=== PATIENT | male | born 1965 | race African-American/Black ===

== ENCOUNTER 2017-12-07 06:16 | Inpatient (IN) | payer OTHER ==
[2017-12-04 16:53] VITALS: BMI 31.4
[2017-12-07] MEDS ORDERED: THROMBIN (BOVINE) 5,000 UNIT VIAL TP ONE (07:15)
[2017-12-07] MEDS ORDERED: BENZOIN/ALOE VERA/STORAX/TOLU 58 ML BOTTLE ONE (07:15)
[2017-12-07] MEDS ORDERED: HEPARIN NA (PORCINE) 5,000 UNITS/ML 1ML VIAL ONE (07:15)
[2017-12-07] MEDS ORDERED: SUCCINYLCHOLINE CHLORIDE 200 MG/10 ML VIAL ONE (07:23)
[2017-12-07] MEDS ORDERED: PROPOFOL 20 ML ONE ×11 (07:23→11:46)
[2017-12-07] MEDS ORDERED: MIDAZOLAM HCL 2 MG/2 ML SINGLE DOSE VIAL ONE ×2 (07:23)
[2017-12-07] MEDS ORDERED: morphine SULFATE/Preservative Free 0.5 MG/ML (1cc Syringe) ONE (07:44)
[2017-12-07] MEDS ORDERED: BUPIVACAINE HCL/PF 0.5% (5MG/ML) 10 ML VIAL ONE (07:49)
[2017-12-07] MEDS ORDERED: VANCOMYCIN 1,000 MG VIAL (RESTRICTED TO ID ONLY) ONE (07:50)
[2017-12-07] MEDS ORDERED: ceFAZolin SODIUM 1 GM VIAL IVPB ONE (08:20)
[2017-12-07] MEDS ORDERED: ePHEDrine SULFATE 50 MG/1 ML AMPULE ONE ×3 (08:23→08:55)
[2017-12-07] MEDS ORDERED: VANCOMYCIN 1,000 MG VIAL (RESTRICTED TO ID ONLY) IVPB ONE (08:30)
[2017-12-07] MEDS ORDERED: ceFAZolin SODIUM 1 GM VIAL ONE ×2 (08:53→11:53)
[2017-12-07] MEDS ORDERED: DEXAMETHASONE SOD PHOSPHATE 4 MG/1 ML VIAL ONE (08:59)
[2017-12-07] MEDS ORDERED: BUPIVACAINE HCL/PF 0.25% (2.5MG/ML) 10 ML VIAL ONE (09:11)
[2017-12-07] MEDS ORDERED: BUPIVACAINE LIPOSOME/PF (EXPAREL) 266 MG/20 ML VIAL NR ONE ×3 (09:30→12:19)
[2017-12-07] MEDS ORDERED: TRANEXAMIC ACID 1000 MG/10 ML VIAL ONE (09:53)
[2017-12-07] MEDS ORDERED: BUPIVACAINE HCL/PF 0.25% (2.5MG/ML) 10 ML VIAL IJ ONE ×3 (09:56→12:19)
[2017-12-07] MEDS ORDERED: ONDANSETRON 4 MG/2 ML VIAL IVPUSH PRN ×2 (12:04→13:13)
[2017-12-07] MEDS ORDERED: oxyCODONE HCL 5 MG TABLET PO PRN (12:12)
[2017-12-07] MEDS ORDERED: ACETAMINOPHEN 325 MG TABLET (FP) PO SCH (12:15)
--- NOTE | 2017-12-07 13:20 | PN ---
Progress Note (short form) - Note Progress Note: 52M s/p L4-S1 laminectomies; L4-L5, & L5-S1 PLIF, L4-S1 PISF POD #0. -Pain control: per anaesthesia team; recommend NETWORK ENGINEER ADMINISTRATOR; No NSAID's. -DVT PPx: - Mechanical only: ALFRED's, SCD's. -Incentive spirometry q15min. -PT/OT/Rehab, OOB. -WBAT B/L LE. -q4h B/L LE NV checks. -Post-op antibiotics x 2 doses. -NPO until flatus. -f/u AM labs. -f/u drain output. -d/c Alan catheter when patient ambulating comfortably. -Care per medical hospitalist team. -Discharge planning: f/u 7-10 days after discharge at [facility] [place] office; call for appointment; ; no bending, lifting more than 5lbs , or twisting x 6 months. -Will follow. Naga Beck MD (Orthopaedic Surgery).
--- NOTE | 2017-12-07 13:23 | OP ---
Operative Note - Note: Operative Date: 12/07/17 Pre-Operative Diagnosis: Lumbar spinal stenosis Operation: 1. L4-S1 laminectomies. 2. L4-L5, & L5-S1 PLIF. 3. L4-S1 PISF. 4. Bone Autograft. 5. Bone Allograft Post-Operative Diagnosis: Same as Pre-op Surgeon: Naga Beck Bale Stacker: Tony Beck Anesthesiologist/POWER SHEAR OPERATOR: Chante Jerez Anesthesia: General Specimens Removed: L4-5, L5-S1 disc Estimated Blood Loss (mls): 900 Drains & Tubes with Location: 1 x superficial hemovac Blood Volume Replaced (mls): 475 (cell saver) Fluid Volume Replaced (mls): 1,400 (crystalloid) Operative Report Dictated: Yes
[2017-12-07] MEDS ORDERED: ACETAMINOPHEN INJECTION 100 ML IVPB ONE (14:34)
[2017-12-07] MEDS: LACTATED RINGERS SOLUTION 1,000 ML IV SCH ×2 (14:45→17:09)
[2017-12-07] MEDS: ACETAMINOPHEN 1000 MG/100 ML VIAL (NON FORMULARY) IVPB SCH ×2 (14:55→23:02)
--- NOTE | 2017-12-07 16:33 | CONSULT ---
Consultation: REQUESTING PROVIDER: CONSULT REQUEST: We have been asked to medically evaluate this patient for ICU. HISTORY OF PRESENT ILLNESS: 52 y/o M with PMH HTN, anemia, who is admitted to ICU s/p 1. L4-S1 laminectomies. 2. L4-L5, & L5-S1 PLIF. 3. L4-S1 PISF. 4. Bone Autograft. 5. Bone Allograft for lumbar spinal stenosis. As per pt, over the past 10 yrs, he has had intermittent lumbar pain a/w sharp, radiating pain into the lateral aspect of his lower extremities. This past yr, his condition worsened, as he was "unable to walk a block without experiencing pain." States that he saw his PMD, Dr. Samano ([facility]) and was given cortisone shots which mildly alleviated his condition. Pt subsequently underwent a lumbar X-ray which suggested lumbar spinal stenosis. He decided to undergo surgery since the pain was severe. Denies SUN, fever, chills, SOB, or changes in urinary or bowel function. REVIEW OF SYSTEMS: CONSTITUTIONAL: Absent: fever, chills, diaphoresis, generalized weakness, malaise, loss of appetite, weight change HEENT: Absent: rhinorrhea, nasal congestion, throat pain, throat swelling, difficulty swallowing, mouth swelling, ear pain, eye pain, visual changes CARDIOVASCULAR: Absent: chest pain, syncope, palpitations, irregular heart rate, lightheadedness , peripheral edema RESPIRATORY: Absent: cough, shortness of breath, dyspnea with exertion, orthopnea, wheezing, stridor, hemoptysis GASTROINTESTINAL: Absent: abdominal pain, abdominal distension, nausea, vomiting, diarrhea, constipation, melena, hematochezia GENITOURINARY: Absent: dysuria, frequency, urgency, hesitancy, hematuria, flank pain, genital pain MUSCULOSKELETAL: +back pain Absent: myalgia, arthralgia, joint swelling, back pain, neck pain SKIN: Absent: rash, itching, pallor HEMATOLOGIC/IMMUNOLOGIC: Absent: easy bleeding, easy bruising, lymphadenopathy, frequent infections ENDOCRINE: Absent: unexplained weight gain, unexplained weight loss, heat intolerance, cold intolerance NEUROLOGIC: Absent: headache, focal weakness or paresthesias, dizziness, unsteady gait, seizure, mental status changes, bladder or bowel incontinence PSYCHIATRIC: Absent: anxiety, depression, suicidal or homicidal ideation, hallucinations. PHYSICAL EXAMINATION Vital Signs - 24 hr 12/07/17 12/07/17 12/07/17 15:00 15:15 15:30 Temperature 97.6 F Pulse Rate 82 80 80 Respiratory 20 16 16 Rate Blood Pressure 138/75 136/72 138/76 O2 Sat by Pulse 98 97 Oximetry (%) GENERAL: Resting comfortably. Awake, alert, and fully oriented, in no acute distress. HEAD: Normal with no signs of trauma. EYES: Pupils equal, round and reactive to light, extraocular movements intact, sclera anicteric, conjunctiva clear. EARS, NOSE, THROAT: Ears normal, nares patent, oropharynx clear without exudates. Moist mucous membranes. NECK: Normal range of motion, supple LUNGS: Breath sounds equal, clear to auscultation bilaterally. No wheezes, and no crackles. HEART: Regular rate and rhythm, normal S1 and S2 without murmur, rub or gallop. ABDOMEN: Soft, nontender, not distended, normoactive bowel sounds, no guarding, no rebound, no masses. MUSCULOSKELETAL: +able to move upper and lower extremities. unable to turn back to show lumbar region. LOWER EXTREMITIES: 2+ pt pulses, warm, well-perfused. No calf tenderness. No peripheral edema. NEUROLOGICAL: Cranial nerves II-XII intact. PSYCHIATRIC: Cooperative. Laboratory Results 12/07/17 12/07/17 06:25 06:55 Blood Type A POSITIVE A POSITIVE Antibody Screen Negative Active Medications Generic Name Dose Route Start Last Admin Trade Name Freq PRN Reason Stop Dose Admin Acetaminophen 1,000 mg 12/07/17 13:15 12/07/17 14:55 Ofirmev Injection - IVPB 12/09/17 05:16 1,000 mg Q8H ESTEFANIA Administration Cefazolin Sodium/Dextrose 2 gm 12/07/17 13:15 Ancef 2 Gm Premixed Ivpb - IVPB 12/07/17 21:16 Q8H ESTEF[facility]IA Fentanyl 50 mcg 12/07/17 12:04 Sublimaze Injection - IVPUSH [id number] PRN PAIN-PACU ORDER X 4 DOSES ONLY Gabapentin 300 mg 12/07/17 22:00 Neurontin - PO BID EST[facility] Hydrochlorothiazide 25 mg 12/08/17 10:00 Hctz - PO DAILY [facility] Lactated Ringer's 1,000 mls @ 125 mls/hr 12/07/17 12:15 Lactated Ringers Solution IV ASDIR [facility] Lactated Ringer's 1,000 mls @ 125 mls/hr 12/07/17 13:15 12/07/17 14:45 Lactated Ringers Solution IV 125 mls ASDIR EST[facility] Administration Ondansetron HCl 4 mg 12/07/17 12:04 Zofran Injection IVPUSH Q6H PRN NAUSEA AND/OR VOMITING Ondansetron HCl 4 mg 12/07/17 13:13 Zofran Injection IVPUSH Q6H PRN NAUSEA AND/OR VOMITING Oxycodone HCl 5 mg 12/07/17 12:12 Roxicodone - PO Q3H PRN PAIN LEVEL 1-5 Oxycodone HCl 10 mg 12/07/17 12:12 Roxicodone - PO Q3H PRN PAIN LEVEL 6-10 Oxycodone HCl 10 mg 12/08/17 10:00 Oxycontin - PO 12/10/17 12:13 BID ESTEFANIA ASSESSMENT/PLAN: 52 y/o M with PMH HTN, lumbar spinal stenosis, who is currently s/p L4-S1 laminectomies; L4-L5, & L5-S1 PLIF, L4-S1 PISF POD #0. -Pain control: per anaesthesia team; recommend TONGUE PRESSER; No NSAID's. -DVT PPx: - Mechanical only: ALFRED's, SCD's. -Incentive spirometry q15min. -PT/OT/Rehab, OOB. -WBAT B/L LE. -q4h B/L LE NV checks. -Post-op antibiotics x 2 doses. -NPO until flatus. -f/u AM labs. -f/u drain output. -d/c Alan catheter when patient ambulating comfortably. -Care per medical hospitalist team. -Discharge planning: f/u 7-10 days after discharge at [facility] office; call for appointment; ; no bending, lifting more than 5lbs , or twisting x 6 months. F/E/N LR 125 cc/hr continue to follow lytes NPO until flatus PPX DVT: SCD's/ALFRED's as per above Dispo: We will continue to follow the patient. Thank you for this consultative opportunity. Visit type - Emergency Visit Emergency Visit: No - New Patient This patient is new to me today: Yes Date on this admission: 12/07/17 - Critical Care Critical Care patient: Yes Total Critical Care Time (in minutes): 40 Critical Care Statement: The care of this patient involved high complexity decision making to prevent further life threatening deterioration of the patient 's condition and/or to evaluate & treat vital organ system(s) failure or risk of failure.
[2017-12-07] MEDS: ceFAZolin 2 GRAM PREMIX BAG IVPB SCH ×2 (17:09→23:02)
[2017-12-07] MEDS ORDERED: BENZOCAINE/MENTH/CETYLPYRD CL 1 EACH LOZENGE MM PRN (20:37)
[2017-12-07] MEDS: GABAPENTIN 300 MG CAPSULE (FP) PO SCH (23:10)
[2017-12-07] MEDS: CHLORHEXIDINE GLUCONATE 4% CLEANSER FOR DECOLONIZATION TP SCH (23:10)
[2017-12-07] MEDS: MUPIROCIN 2% TOPICAL OINTMENT FOR DECOLONIZATION NS SCH (23:10)
[2017-12-08] MEDS: ACETAMINOPHEN 1000 MG/100 ML VIAL (NON FORMULARY) IVPB SCH ×3 (05:08→20:56)
[2017-12-08 06:53] LABS: HEMATOCRIT 33.9 % (35.4-49); HEMOGLOBIN 10.8 GM/dL (11.7-16.9); MCH 25.1 pg (25.7-33.7); MCHC 31.8 g/dl (32.0-35.9); MEAN PLT VOLUME 8.5 fl (7.5-11.1); PLATELET COUNT 204 K/MM3 (134-434); RBC 4.29 M/mm3 (4.00-5.60); RDW 14.8 % (11.9-15.9); WHITE BLOOD COUNT 16.6 K/mm3 (4.0-10.0)
[2017-12-08 07:11] LABS: ANION GAP 4 MMOL/L (8-16); BLOOD UREA NITROGEN 19 mg/dL (7-18); CALCIUM 8.3 mg/dL (8.5-10.1); CHLORIDE 100 mmol/L (98-107); CO2 33 mmol/L (21-32); CREATININE 1.3 mg/dL (0.7-1.3); GLUCOSE,RANDOM 114 mg/dL (74-106); MAGNESIUM 1.9 mg/dL (1.8-2.4); PHOSPHOROUS 4.9 mg/dL (2.5-4.9); POTASSIUM 4.8 mmol/L (3.5-5.1); SODIUM 137 mmol/L (136-145)
--- NOTE | 2017-12-08 09:13 | PN ---
Progress Note, Physician Chief Complaint: Pt sitting up comfortably in bed, pain controlled, no GA complaints. - Current Medication List Current Medications: Active Medications Acetaminophen (Ofirmev Injection -) 1,000 mg IVPB Q8H [facility] Stop: 12/09/17 05:16 Last Admin: 12/08/17 05:08 Dose: 1,000 mg Benzocaine/Menthol (Cepacol Lozenge -) 1 each MM Q6H PRN PRN Reason: SORE THROAT Chlorhexidine Gluconate (Hibiclens For Decolonization -) 1 applic TP HS [facility] Last Admin: 12/07/17 23:10 Dose: 1 applic Fentanyl (Sublimaze Injection -) 50 mcg IVPUSH [id number] PRN PRN Reason: PAIN-PACU ORDER X 4 DOSES ONLY Gabapentin (Neurontin -) 300 mg PO BID [facility] Last Admin: 12/07/17 23:10 Dose: 300 mg Hydrochlorothiazide (Hctz -) 25 mg PO DAILY [facility] Lactated Ringer's (Lactated Ringers Solution) 1,000 mls @ 125 mls/hr IV ASDIR [facility] Last Admin: 12/07/17 17:09 Dose: 125 mls/hr Lactated Ringer's (Lactated Ringers Solution) 1,000 mls @ 125 mls/hr IV ASDIR [facility] Last Admin: 12/07/17 14:45 Dose: 125 mls Mupirocin (Bactroban Ointment (For Decolonization) -) 1 applic NS BID [facility] Stop: 12/12/17 21:59 Last Admin: 12/07/17 23:10 Dose: 1 applic Ondansetron HCl (Zofran Injection) 4 mg IVPUSH Q6H PRN PRN Reason: NAUSEA AND/OR VOMITING Ondansetron HCl (Zofran Injection) 4 mg IVPUSH Q6H PRN PRN Reason: NAUSEA AND/OR VOMITING Oxycodone HCl (Roxicodone -) 5 mg PO Q3H PRN PRN Reason: PAIN LEVEL 1-5 Oxycodone HCl (Roxicodone -) 10 mg PO Q3H PRN PRN Reason: PAIN LEVEL 6-10 Oxycodone HCl (Oxycontin -) 10 mg PO BID [facility] Stop: 12/10/17 12:13 - Objective Vital Signs: Vital Signs Temperature 97.5 F L 12/07/17 15:30 Pulse Rate 86 12/08/17 08:00 Respiratory Rate 18 12/08/17 08:00 Blood Pressure 142/82 12/08/17 08:00 O2 Sat by Pulse Oximetry (%) 100 12/08/17 07:57 Constitutional: Yes: Well Nourished, No Distress, Calm Musculoskeletal: Yes: WNL Neurological: Yes: WNL, Alert, Oriented Labs: CBC, BMP 12/08/17 05:30 12/08/17 05:30 Assessment/Plan POD#1 s/p L4-S1 fusion under GA with duramorph and exparel TLIPS. Doing well. D/C from anesthesia care.
[2017-12-08] MEDS: MUPIROCIN 2% TOPICAL OINTMENT FOR DECOLONIZATION NS SCH ×2 (09:21→21:43)
[2017-12-08] MEDS: GABAPENTIN 300 MG CAPSULE (FP) PO SCH ×2 (09:23→21:43)
[2017-12-08] MEDS: HYDROCHLOROTHIAZIDE 25 MG TABLET (FP) PO SCH (09:24)
[2017-12-08] MEDS ORDERED: oxyCODONE HCL 10 MG SUSTAINED ACTING TABLET PO SCH (10:00)
--- NOTE | 2017-12-08 10:57 | OP ---
DATE OF OPERATION: 12/07/2017 SURGEON: Naga Beck MD WIRE ROLLER: Tony Beck MD ANESTHESIA: General. PREOPERATIVE DIAGNOSIS: Disk prolapse L4-L5 and L5-S1, with associated stenosis , grade 1 spondylolisthesis L4 on L5, and associated segmental instability and kyphosis. POSTOPERATIVE DIAGNOSIS: Disk prolapse L4-L5 and L5-S1, with associated stenosis, grade 1 spondylolisthesis L4 on L5, and associated segmental instability and kyphosis. OPERATION PERFORMED: 1. Laminectomy, L4, L5, and S1. 2. Diskectomy, L4-L5 and L5-S1. 3. Posterior lumbar interbody fusion with cages, L4-L5 and L5-S1. 4. Anterior arthrodesis with cages, L4-L5 and L5-S1. 5. Pedicle screw instrumentation, L4-L5 and L5-S1. 6. Posterolateral arthrodesis, L4-L5 and L5-S1. 7. Use of autologous bone graft and bone marrow aspirate concentrate. 8. Complex wound closure, 25 cm. 9. Use of biplane fluoroscopy, intraoperative neuromonitoring as well as fluoroscopy. OPERATION IN DETAIL: The patient was correctly identified and brought to the operating room. The lumbar spine was prepped. The patient was placed prone on a spinal table. Gel rolls were utilized and all appropriate bony points were padded. The abdomen was free. The table was set at 10 degrees ante-Trendelenburg, that is head up. A lateral fluoroscopic x-ray helped delineate the level for incision. The skin was cleansed with Betadine scrub solution, wiped off with alcohol, and DuraPrep applied. A time-out was called. Intraoperative imaging was available accordingly. In the prone position, a midline incision was made from to the tip of the spinous process from L4 right down to the tip of the spinous process of S1. The skin dissection was taken through the subcutaneous fat to the fascia. Subperiosteal dissection was performed, exposing the lamina of L4-L5 and L5-S1 completely. Utilizing Lexsell rongeurs as well as cerebellar retractors and Kerrison up-cuts , the central laminae were resected completely. All bone was saved for bone graft purposes. Osteotomes were utilized to implode the lateral part of the vertebral wall. A longitudinal incision was made, imploding the bone inwards. The superior facets were then resected, freeing the entire thecal elements completely. Massively bulging disks were noted at L4-L5 and L5-S1. These were retracted from right to left. Massive epidural veins were dealt with bipolar Bovie. Each disk was dealt with in exactly the same manner. Each annulus was opened using an annulotomy. Each disk was shaved with a shaving device. Pituitary rongeurs were utilized to remove the appropriate disk material and the hyaline cartilage of the endplates. Once the disk had been emptied, press-fitting the cages was performed. Each cage measured 10 mm. These were 40 length spacer cages. Prior to insertion of the cages, autologous bone was packed into the anterior interbody space to thus complete an anterior arthrodesis done from behind at L4-L5 and L5-S1. Once the bone graft had been seated, the cages were seated, the shaving was to size 9 and they were press fit as each cage measured size 10. Verification with a lateral fluoroscopic x-ray revealed excellent seating of the cages and opening of the disk space accordingly. Once this had been performed, the pedicles of L4, L5 and S1 were identified utilizing anatomic guidelines and a lateral fluoroscopic x-ray. Each pedicle was drilled with a 4.5 drill bit. Each pedicle screw measured 45 mm x 6.5 mm. Each pedicle screw enabled appropriate fixation. Neuromonitoring was found to be well above the safe zones. Once the neuromonitoring had been finalized, it was at that point then that the rods were contoured to the screw heads and fixed solidly with a torque device, with the appropriate caps. Lordosis was built into the screws. Excellent positioning was noted on the table. The muscle was gently retracted off the transverse processes right down to the ala of the sacrum. The combination of autologous bone with allograft bone was mixed with bone marrow aspirate concentrate. Bone marrow aspirate concentrate was harvested from the left posterior ilium; 6 mL were harvested and spun down for the CD34 cells and mixed with the bone graft appropriately. Once this had been achieved and the autologous bone grafting finalized, the muscle was trimmed for necrotic cartilage. Closure was as follows: Muscle with 1 Vicryl, fascia with 1 Vicryl, subcutaneous with 1 and 2-0 Vicryl, and skin audrey. Drainage: A 1/8-inch Hemovac x1. This to complete a complex wound closure. Overall, the operation went extremely well. A large muscular man. Difficult exposure because of his obesity. No other complications. The final codings were as follows: Laminectomies L4 and L5 with facetectomies: 24303, and additional level plus 32367. Posterior lumbar interbody fusion as follows: L4-L5 and L5-S1, 65251. Additional level was 03564, and cages x2 was 01207. Autologous bone graft: 77451. Autologous bone marrow harvest: 11896. Posterior arthrodesis, lumbar: 32437, additional level plus 91079. Posterior instrumentation: 31445. Additional posterior arthrodesis code: 06041. Code for 25-cm complex wound closure to be added as well, please. MD MANDIE Mcgee/[id number] MTDD
--- NOTE | 2017-12-08 11:22 | PN ---
Physical Exam: SUBJECTIVE: Patient seen and examined. No acute events overnight. Pt. received pain medication to good effect. Pt. endorses having a cough that has started recently. Pt. denies numbness, tingling, fever, or chills. Pt. has not passed stool or gas. Pt. is NPO. Pt. had estimated blood loss of 900ml during the procedure, received 475ml of cellsaver back. OBJECTIVE: Vital Signs Period Temp Pulse Resp BP Sys/Ling Pulse Ox Last 24 Hr 97.5 F-97.8 F 80-99 12-100 121-142/63-84 97-100 GENERAL: The patient is awake, alert,lying comfortably in bed in no acute distress. LUNGS: Breath sounds equal, clear to auscultation bilaterally, no wheezes, no crackles, no accessory muscle use. HEART: Regular rate and rhythm, S1, S2 without murmur ABDOMEN: firm, nontender, nondistended, sluggish bowel sounds, no guarding, no rebound, Alan present with clear yellow urine EXTREMITIES: 5/5 muscle strength in all limbs, motor and sensation grossly intact in all limbs, warm, well-perfused, no edema. 20 guage line present on the left wrist. BACK: c/d/i NEUROLOGICAL: Normal speech, gait not observed. PSYCH: Normal mood, normal affect. SKIN: Warm, dry, normal turgor Laboratory Results - last 24 hr 12/08/17 12/08/17 05:30 05:30 WBC 16.6 H RBC 4.29 Hgb 10.8 L Hct 33.9 L MCV 79.0 L MCH 25.1 L MCHC 31.8 L RDW 14.8 Plt Count 204 MPV 8.5 Sodium 137 Potassium 4.8 Chloride 100 Carbon Dioxide 33 H Anion Gap 4 L BUN 19 H Creatinine 1.3 Creat Clearance w eGFR 57.75 Random Glucose 114 H Calcium 8.3 L Phosphorus 4.9 Magnesium 1.9 Active Medications Current Medications Acetaminophen (Ofirmev Injection -) 1,000 mg IVPB Q8H [facility] Stop: 12/09/17 05:16 Last Admin: 12/08/17 05:08 Dose: 1,000 mg Benzocaine/Menthol (Cepacol Lozenge -) 1 each MM Q6H PRN PRN Reason: SORE THROAT Chlorhexidine Gluconate (Hibiclens For Decolonization -) 1 applic TP HS [facility] Last Admin: 12/07/17 23:10 Dose: 1 applic Fentanyl (Sublimaze Injection -) 50 mcg IVPUSH [id number] PRN PRN Reason: PAIN-PACU ORDER X 4 DOSES ONLY Gabapentin (Neurontin -) 300 mg PO BID [facility] Last Admin: 12/08/17 09:23 Dose: 300 mg Hydrochlorothiazide (Hctz -) 25 mg PO DAILY [facility] Last Admin: 12/08/17 09:24 Dose: 25 mg Lactated Ringer's (Lactated Ringers Solution) 1,000 mls @ 125 mls/hr IV ASDIR [facility] Last Admin: 12/07/17 17:09 Dose: 125 mls/hr Lactated Ringer's (Lactated Ringers Solution) 1,000 mls @ 125 mls/hr IV ASDIR [facility] Last Admin: 12/07/17 14:45 Dose: 125 mls Mupirocin (Bactroban Ointment (For Decolonization) -) 1 applic NS BID [facility] Stop: 12/12/17 21:59 Last Admin: 12/08/17 09:21 Dose: 1 applic Ondansetron HCl (Zofran Injection) 4 mg IVPUSH Q6H PRN PRN Reason: NAUSEA AND/OR VOMITING Ondansetron HCl (Zofran Injection) 4 mg IVPUSH Q6H PRN PRN Reason: NAUSEA AND/OR VOMITING Oxycodone HCl (Roxicodone -) 5 mg PO Q3H PRN PRN Reason: PAIN LEVEL 1-5 Oxycodone HCl (Roxicodone -) 10 mg PO Q3H PRN PRN Reason: PAIN LEVEL 6-10 Oxycodone HCl (Oxycontin -) 10 mg PO BID [facility] Stop: 12/10/17 12:13 Last Admin: 12/08/17 09:23 Dose: 10 mg ASSESSMENT/PLAN: 52 y/o M with PMH HTN, lumbar spinal stenosis, who is currently s/p L4-S1 laminectomies; L4-L5, & L5-S1 PLIF, L4-S1 PISF POD #1. #Musculoskeletal -s/p LL4-S1 laminectomies; L4-L5, & L5-S1 PLIF, L4-S1 PISF POD #1 -Pain controlled per Anaesthesia, No NSAIDs. Pt. has IV Tylenol, Gabapentin and oxycontin as needed. -Drain removed -PT appreciated, Pt. walked 10ft. with a walker -OOB- weight bearing as tolerated -q4h b/l neurovascular checks -2 doses of post-op Abx. -Incentive Spirometry q15min #Cardiovascular -c/w HCTZ for HTN #F/E/N -LR 125 cc/hr -continue to follow lytes -NPO until flatus -Alan removed #DVT Ppx. -SCD's/ALFRED's Dispo: -ICU, can transfer to med/surg -Discharge planning: [facility]; call for [facility]; ; no bending, lifting more than 5lbs , or twisting x 6 months. Visit type - Emergency Visit Emergency Visit: No - New Patient This patient is new to me today: Yes Date on this admission: 12/08/17 - Critical Care Critical Care patient: No - Discharge Referral Referred to [facility] No
[2017-12-08] MEDS ORDERED: DOCUSATE SODIUM 100 MG CAPSULE (FP) PO PRN (11:24)
--- NOTE | 2017-12-08 12:27 | PN ---
Teaching Attending Note Name of Resident: Naga Gauthier ATTENDING PHYSICIAN STATEMENT I saw and evaluated the patient. I reviewed the resident's note and discussed the case with the resident. I agree with the resident's findings and plan as documented. SUBJECTIVE: Pt seen and examined in the ICU. States pain is controlled. No flatus yet. No shortness of breath or chest pain. No nausea or vomiting. OBJECTIVE: Vital Signs Period Temp Pulse Resp BP Sys/Ling Pulse Ox Last 24 Hr 97.5 F-97.8 F 80-99 12-100 121-142/63-84 97-100 Intake & Output 12/05/17 12/06/17 12/07/17 12/08/17 23:59 23:59 23:59 23:59 Intake Total 1999 1521 Output Total 1425 700 Balance 575 821 Gen: NAD at rest Heart: RRR Lung: decreased breath sounds at the bases Abd: soft, nontender Ext: no edema Back: dressings dry Drain with serosanguinous fluid CBC, BMP 12/08/17 05:30 12/08/17 05:30 Active Medications Acetaminophen (Ofirmev Injection -) 1,000 mg IVPB Q8H [facility] Stop: 12/09/17 05:16 Last Admin: 12/08/17 05:08 Dose: 1,000 mg Benzocaine/Menthol (Cepacol Lozenge -) 1 each MM Q6H PRN PRN Reason: SORE THROAT Chlorhexidine Gluconate (Hibiclens For Decolonization -) 1 applic TP HS [facility] Last Admin: 12/07/17 23:10 Dose: 1 applic Docusate Sodium (Colace -) 100 mg PO Q8H PRN PRN Reason: CONSTIPATION Fentanyl (Sublimaze Injection -) 50 mcg IVPUSH [id number] PRN PRN Reason: PAIN-PACU ORDER X 4 DOSES ONLY Gabapentin (Neurontin -) 300 mg PO BID [facility] Last Admin: 12/08/17 09:23 Dose: 300 mg Hydrochlorothiazide (Hctz -) 25 mg PO DAILY [facility] Last Admin: 12/08/17 09:24 Dose: 25 mg Lactated Ringer's (Lactated Ringers Solution) 1,000 mls @ 125 mls/hr IV ASDIR [facility] Last Admin: 12/07/17 17:09 Dose: 125 mls/hr Lactated Ringer's (Lactated Ringers Solution) 1,000 mls @ 125 mls/hr IV ASDIR [facility] Last Admin: 12/07/17 14:45 Dose: 125 mls Mupirocin (Bactroban Ointment (For Decolonization) -) 1 applic NS BID [facility] Stop: 12/12/17 21:59 Last Admin: 12/08/17 09:21 Dose: 1 applic Ondansetron HCl (Zofran Injection) 4 mg IVPUSH Q6H PRN PRN Reason: NAUSEA AND/OR VOMITING Ondansetron HCl (Zofran Injection) 4 mg IVPUSH Q6H PRN PRN Reason: NAUSEA AND/OR VOMITING Oxycodone HCl (Roxicodone -) 5 mg PO Q3H PRN PRN Reason: PAIN LEVEL 1-5 Oxycodone HCl (Roxicodone -) 10 mg PO Q3H PRN PRN Reason: PAIN LEVEL 6-10 Oxycodone HCl (Oxycontin -) 10 mg PO BID [facility] Stop: 12/10/17 12:13 Last Admin: 12/08/17 09:23 Dose: 10 mg ASSESSMENT AND PLAN: Lumbar Spinal Stenosis s/p L4-S1 Laminectomies/L4-L5, L5-S1 PLIF/L4-S1 PISF Acute Blood Loss Anemia HTN - pain control - incentive spirometry - PO when flatus - d/c ocampo when OOB - rehab/PT - monitor H/H - monitor drain output - DVT prophylaxis
[2017-12-08] MEDS: LACTATED RINGERS SOLUTION 1,000 ML IV SCH ×2 (12:48→16:53)
--- NOTE | 2017-12-08 13:19 | HP ---
CHIEF COMPLAINT: PCP: HISTORY OF PRESENT ILLNESS: ER course was notable for: (1) (2) (3) Recent Travel: PAST MEDICAL HISTORY: PAST SURGICAL HISTORY: Social History: Smoking: Alcohol: Drugs: Family History: Allergies No Known Allergies Allergy (Verified 12/07/17 06:59) HOME MEDICATIONS: Home Medications Medication Instructions Recorded Ferrous Sulfate [Feosol] 325 mg PO DAILY 12/04/17 Hydrochlorothiazide [Hctz -] 25 mg PO DAILY 12/04/17 Clindamycin Topical Solution 0 ml TP DAILY 12/07/17 [Cleocin 1% Topical Solution -] REVIEW OF SYSTEMS CONSTITUTIONAL: Absent: fever, chills, diaphoresis, generalized weakness, malaise, loss of appetite, weight change HEENT: Absent: rhinorrhea, nasal congestion, throat pain, throat swelling, difficulty swallowing, mouth swelling, ear pain, eye pain, visual changes CARDIOVASCULAR: Absent: chest pain, syncope, palpitations, irregular heart rate, lightheadedness , peripheral edema RESPIRATORY: Absent: cough, shortness of breath, dyspnea with exertion, orthopnea, wheezing, stridor, hemoptysis GASTROINTESTINAL: Absent: abdominal pain, abdominal distension, nausea, vomiting, diarrhea, constipation, melena, hematochezia GENITOURINARY: Absent: dysuria, frequency, urgency, hesitancy, hematuria, flank pain, genital pain MUSCULOSKELETAL: Absent: myalgia, arthralgia, joint swelling, back pain, neck pain SKIN: Absent: rash, itching, pallor HEMATOLOGIC/IMMUNOLOGIC: Absent: easy bleeding, easy bruising, lymphadenopathy, frequent infections ENDOCRINE: Absent: unexplained weight gain, unexplained weight loss, heat intolerance, cold intolerance NEUROLOGIC: Absent: headache, focal weakness or paresthesias, dizziness, unsteady gait, seizure, mental status changes, bladder or bowel incontinence PSYCHIATRIC: Absent: anxiety, depression, suicidal or homicidal ideation, hallucinations. PHYSICAL EXAMINATION Vital Signs - 24 hr 12/07/17 12/07/17 12/07/17 13:30 13:45 14:00 Temperature Pulse Rate 88 86 83 Respiratory 17 18 26 H Rate Blood Pressure 121/66 133/68 131/69 O2 Sat by Pulse 98 98 98 Oximetry (%) 12/07/17 12/07/17 12/07/17 14:15 14:30 14:45 Temperature Pulse Rate 81 81 85 Respiratory 15 21 20 Rate Blood Pressure 140/69 130/72 135/72 O2 Sat by Pulse 98 98 98 Oximetry (%) 12/07/17 12/07/17 12/07/17 15:00 15:15 15:30 Temperature 97.5 F L Pulse Rate 82 80 83 Respiratory 20 16 17 Rate Blood Pressure 138/75 136/72 126/76 O2 Sat by Pulse 98 97 98 Oximetry (%) 12/07/17 12/07/17 12/07/17 16:00 18:00 20:29 Temperature Pulse Rate 83 85 Respiratory 12 14 Rate Blood Pressure 126/73 124/84 O2 Sat by Pulse 100 Oximetry (%) 12/07/17 12/08/17 12/08/17 22:00 00:00 02:00 Temperature Pulse Rate 88 88 98 H Respiratory 100 H 14 14 Rate Blood Pressure 132/63 138/76 139/81 O2 Sat by Pulse Oximetry (%) 12/08/17 12/08/17 12/08/17 04:59 07:57 08:00 Temperature Pulse Rate 99 H 86 Respiratory 14 18 Rate Blood Pressure 140/70 142/82 O2 Sat by Pulse 100 Oximetry (%) 12/08/17 12/08/17 10:00 12:00 Temperature 98.8 F Pulse Rate 86 90 Respiratory 20 24 Rate Blood Pressure 129/78 137/73 O2 Sat by Pulse Oximetry (%) GENERAL: Awake, alert, and fully oriented, in no acute distress. HEAD: Normal with no signs of trauma. EYES: Pupils equal, round and reactive to light, extraocular movements intact, sclera anicteric, conjunctiva clear. No lid lag. EARS, NOSE, THROAT: Ears normal, nares patent, oropharynx clear without exudates. Moist mucous membranes. NECK: Normal range of motion, supple without lymphadenopathy, JVD, or masses. LUNGS: Breath sounds equal, clear to auscultation bilaterally. No wheezes, and no crackles. No accessory muscle use. HEART: Regular rate and rhythm, normal S1 and S2 without murmur, rub or gallop. ABDOMEN: Soft, nontender, not distended, normoactive bowel sounds, no guarding, no rebound, no masses. No hepatomegaly or splenomegaly. MUSCULOSKELETAL: Normal range of motion at all joints. No bony deformities or tenderness. No CVA tenderness. UPPER EXTREMITIES: 2+ pulses, warm, well-perfused. No cyanosis. No clubbing. No peripheral edema. LOWER EXTREMITIES: 2+ pulses, warm, well-perfused. No calf tenderness. No peripheral edema. NEUROLOGICAL: Cranial nerves II-XII intact. Normal speech. Normal gait. PSYCHIATRIC: Cooperative. Good eye contact. Appropriate mood and affect. SKIN: Warm, dry, normal turgor, no rashes or lesions noted, normal capillary refill. Laboratory Results - last 24 hr 12/08/17 12/08/17 05:30 05:30 WBC 16.6 H RBC 4.29 Hgb 10.8 L Hct 33.9 L MCV 79.0 L MCH 25.1 L MCHC 31.8 L RDW 14.8 Plt Count 204 MPV 8.5 Sodium 137 Potassium 4.8 Chloride 100 Carbon Dioxide 33 H Anion Gap 4 L BUN 19 H Creatinine 1.3 Creat Clearance w eGFR 57.75 Random Glucose 114 H Calcium 8.3 L Phosphorus 4.9 Magnesium 1.9 ASSESSMENT/PLAN: Hospitalist Screening - Colonoscopy Questionnaire Colonoscopy Questionnaire: Colonoscopy Questionnaire
--- NOTE | 2017-12-08 13:22 | PN ---
Physical Exam: SUBJECTIVE: Patient seen and examined at bedside in the ICU He denies any complaints Using the incentive spirometer comfortable OBJECTIVE: Vital Signs Period Temp Pulse Resp BP Sys/Ling Pulse Ox Last 24 Hr 97.5 F-98.8 F 80-99 12-100 121-142/63-84 97-100 GENERAL: The patient is awake, alert, and fully oriented, in no acute distress. HEAD: Normal with no signs of trauma. EYES: PERRL ENT: moist mucous membranes. NECK: Trachea midline, full range of motion, supple. LUNGS: Breath sounds equal, clear to auscultation bilaterally, no wheezes, no crackles, no accessory muscle use. HEART: Regular rate and rhythm, S1, S2 ABDOMEN: Soft, nontender, nondistended, hypoactive bowel sounds EXTREMITIES: warm, well-perfused, no edema. Full range of motion in all extremities. Sensation in tact. Drain removed. Coban dressing in place without any drainage on the dressing. NEUROLOGICAL: Cranial nerves II through XII grossly intact. Normal speech, gait not observed. PSYCH: Normal mood, normal affect. SKIN: Warm, dry Laboratory Results - last 24 hr 12/08/17 12/08/17 05:30 05:30 WBC 16.6 H RBC 4.29 Hgb 10.8 L Hct 33.9 L MCV 79.0 L MCH 25.1 L MCHC 31.8 L RDW 14.8 Plt Count 204 MPV 8.5 Sodium 137 Potassium 4.8 Chloride 100 Carbon Dioxide 33 H Anion Gap 4 L BUN 19 H Creatinine 1.3 Creat Clearance w eGFR 57.75 Random Glucose 114 H Calcium 8.3 L Phosphorus 4.9 Magnesium 1.9 Active Medications Generic Name Dose Route Start Last Admin Trade Name Freq PRN Reason Stop Dose Admin Acetaminophen 1,000 mg 12/07/17 13:15 12/08/17 12:49 Ofirmev Injection - IVPB 12/09/17 05:16 1,000 mg Q8H ESTEFANIA Administration Benzocaine/Menthol 1 each 12/07/17 20:37 Cepacol Lozenge - MM Q6H PRN SORE THROAT Chlorhexidine Gluconate 1 applic 12/07/17 22:00 12/07/17 23:10 Hibiclens For Decolonization - TP 1 applic HS ESTEFANIA Administration Docusate Sodium 100 mg 12/08/17 11:24 Colace - PO Q8H PRN CONSTIPATION Fentanyl 50 mcg 12/07/17 12:04 Sublimaze Injection - IVPUSH Q3CHDRAON PRN PAIN-PACU ORDER X 4 DOSES ONLY Gabapentin 300 mg 12/07/17 22:00 12/08/17 09:23 Neurontin - PO 300 mg BID ESTEFANIA Administration Hydrochlorothiazide 25 mg 12/08/17 10:00 12/08/17 09:24 Hctz - PO 25 mg DAILY ESTEFANIA Administration Lactated Ringer's 1,000 mls @ 125 mls/hr 12/07/17 12:15 12/08/17 12:48 Lactated Ringers Solution IV 125 mls/hr ASDIR ESTEFANIA Administration Lactated Ringer's 1,000 mls @ 125 mls/hr 12/07/17 13:15 12/07/17 14:45 Lactated Ringers Solution IV 125 mls ASDIR ESTEFANIA Administration Mupirocin 1 applic 12/07/17 22:00 12/08/17 09:21 Bactroban Ointment (For Decolonization) - NS 12/12/17 21:59 1 applic BID ESTEFANIA Administration Ondansetron HCl 4 mg 12/07/17 12:04 Zofran Injection IVPUSH Q6H PRN NAUSEA AND/OR VOMITING Ondansetron HCl 4 mg 12/07/17 13:13 Zofran Injection IVPUSH Q6H PRN NAUSEA AND/OR VOMITING Oxycodone HCl 5 mg 12/07/17 12:12 Roxicodone - PO Q3H PRN PAIN LEVEL 1-5 Oxycodone HCl 10 mg 12/07/17 12:12 Roxicodone - PO Q3H PRN PAIN LEVEL 6-10 Oxycodone HCl 10 mg 12/08/17 10:00 12/08/17 09:23 Oxycontin - PO 12/10/17 12:13 10 mg BID ESTEFANIA Administration ASSESSMENT/PLAN: 52M with history of HTN and lumbar stenosis who presents to the ICU POD#1 s/p L4 -S1 laminectomies, L4-L5, & L5-S1 PLIF, L4-S1 PISF and both Bone Autograft and Allograft. 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 Beck Case discusses with Dr. Lira and Dr. Beck. Likely D/C tomorrow. Can be transferred to med/surg [facility] Visit type - Emergency Visit Emergency Visit: No - New Patient This patient is new to me today: Yes Date on this admission: 12/08/17 - Critical Care Critical Care patient: Yes Total Critical Care Time (in minutes): 35 Critical Care Statement: The care of this patient involved high complexity decision making to prevent further life threatening deterioration of the patient 's condition and/or to evaluate & treat vital organ system(s) failure or risk of failure. - Discharge Referral Referred to [facility] Med P.C.: No
--- NOTE | 2017-12-08 17:58 | PN ---
Teaching Attending Note Name of Resident: Taco Rankin ATTENDING PHYSICIAN STATEMENT I saw and evaluated the patient. I reviewed the resident's note and discussed the case with the resident. I agree with the resident's findings and plan as documented. SUBJECTIVE: Patient has no complaints. OBJECTIVE: Vital Signs Period Temp Pulse Resp BP Sys/Ling Pulse Ox Last 24 Hr 98.8 F 85-99 14-100 124-142/63-84 100-100 HEART: S1S2, RRR LUNGS: Clear ABDOMEN: Obese, soft, non-tender, non-distended, normal BS EXTREMITIES: No edema Laboratory Results - last 24 hr 12/08/17 12/08/17 05:30 05:30 WBC 16.6 H RBC 4.29 Hgb 10.8 L Hct 33.9 L MCV 79.0 L MCH 25.1 L MCHC 31.8 L RDW 14.8 Plt Count 204 MPV 8.5 Sodium 137 Potassium 4.8 Chloride 100 Carbon Dioxide 33 H Anion Gap 4 L BUN 19 H Creatinine 1.3 Creat Clearance w eGFR 57.75 Random Glucose 114 H Calcium 8.3 L Phosphorus 4.9 Magnesium 1.9 Current Medications Generic Name Dose Route Start Last Admin Trade Name Freq PRN Reason Stop Dose Admin Acetaminophen 1,000 mg 12/07/17 13:15 12/08/17 12:49 Ofirmev Injection - IVPB 12/09/17 05:16 1,000 mg Q8H ESTEFANIA Administration Benzocaine/Menthol 1 each 12/07/17 20:37 Cepacol Lozenge - MM Q6H PRN SORE THROAT Chlorhexidine Gluconate 1 applic 12/07/17 22:00 12/07/17 23:10 Hibiclens For Decolonization - TP 1 applic HS ESTEFANIA Administration Docusate Sodium 100 mg 12/08/17 11:24 Colace - PO Q8H PRN CONSTIPATION Fentanyl 50 mcg 12/07/17 12:04 Sublimaze Injection - IVPUSH [id number] PRN PAIN-PACU ORDER X 4 DOSES ONLY Gabapentin 300 mg 12/07/17 22:00 12/08/17 09:23 Neurontin - PO 300 mg BID ESTEFANIA Administration Hydrochlorothiazide 25 mg 12/08/17 10:00 12/08/17 09:24 Hctz - PO 25 mg DAILY ESTEFANIA Administration Lactated Ringer's 1,000 mls @ 125 mls/hr 12/07/17 12:15 12/08/17 12:48 Lactated Ringers Solution IV 125 mls/hr ASDIR ESTEFANIA Administration Lactated Ringer's 1,000 mls @ 125 mls/hr 12/07/17 13:15 12/08/17 16:53 Lactated Ringers Solution IV 125 mls/hr ASDIR ESTEFANIA Administration Mupirocin 1 applic 12/07/17 22:00 12/08/17 09:21 Bactroban Ointment (For Decolonization) - NS 12/12/17 21:59 1 applic BID ESTEFANIA Administration Ondansetron HCl 4 mg 12/07/17 12:04 Zofran Injection IVPUSH Q6H PRN NAUSEA AND/OR VOMITING Ondansetron HCl 4 mg 12/07/17 13:13 Zofran Injection IVPUSH Q6H PRN NAUSEA AND/OR VOMITING Oxycodone HCl 5 mg 12/07/17 12:12 Roxicodone - PO Q3H PRN PAIN LEVEL 1-5 Oxycodone HCl 10 mg 12/07/17 12:12 Roxicodone - PO Q3H PRN PAIN LEVEL 6-10 Oxycodone HCl 10 mg 12/08/17 10:00 12/08/17 09:23 Oxycontin - PO 12/10/17 12:13 10 mg BID ESTEFANIA Administration ASSESSMENT AND PLAN: This is a 52 year old man with a history of HTN, lumbar stenosis who is s/p L4- S1 laminectomies, L4-L5, & L5-S1 PLIF, L4-S1 PISF, bone autograft, bone allograft. 1. Lumbar stenosis - POD #1 s/p L4-S1 laminectomies, L4-L5, & L5-S1 PLIF, L4-S1 PISF, bone autograft, bone allograft - Continue Neurontin - Pain control - Physical therapy 2. HTN - Continue HCTZ 3. DVT prophylaxis - SCDs
--- NOTE | 2017-12-08 18:17 | PATH ---
Surgical Pathology Report Patient Name: MAURA MCLEOD [facility]. Rec. 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 Specimen(s) Received L4-S1 DISC Clinical History Spondylolisthesis Final Diagnosis L4-S1 DISC, DISCECTOMY: FRAGMENTS OF CARTILAGINOUS TISSUE AND SCANTY BONE WITH DEGENERATIVE CHANGE. Electronically Signed Xiang Cobb M.D. Gross Description Received in formalin labeled "L4-S1 disc," is a 4.0 x 3.7 x 0.5 cm aggregate of aly fragments of fibrocartilaginous tissue. A customer support representative portion is submitted in one cassette. /12/07/2017 saudi/12/07/2017
[2017-12-08] MEDS: oxyCODONE HCL 5 MG TABLET PO PRN (19:52)
[2017-12-08] MEDS: CHLORHEXIDINE GLUCONATE 4% CLEANSER FOR DECOLONIZATION TP SCH (21:43)
[2017-12-09] MEDS ORDERED: SENNOSIDES 8.6MG TABLET (FP) PO ONE (05:20)
[2017-12-09] MEDS: ACETAMINOPHEN 1000 MG/100 ML VIAL (NON FORMULARY) IVPB SCH (05:57)
[2017-12-09 06:13] LABS: HEMATOCRIT 32.2 % (35.4-49); HEMOGLOBIN 10.2 GM/dL (11.7-16.9); MCHC 31.7 g/dl (32.0-35.9); MEAN CELL VOLUME 78.9 fl (80-96); MEAN PLT VOLUME 8.6 fl (7.5-11.1); PLATELET COUNT 198 K/MM3 (134-434); RBC 4.08 M/mm3 (4.00-5.60); RDW 14.7 % (11.9-15.9); WHITE BLOOD COUNT 17.6 K/mm3 (4.0-10.0)
[2017-12-09 06:42] LABS: ANION GAP 9 MMOL/L (8-16); BLOOD UREA NITROGEN 14 mg/dL (7-18); CALCIUM 8.2 mg/dL (8.5-10.1); CHLORIDE 98 mmol/L (98-107); CO2 30 mmol/L (21-32); GLUCOSE,RANDOM 94 mg/dL (74-106); MAGNESIUM 1.8 mg/dL (1.8-2.4); POTASSIUM 4.2 mmol/L (3.5-5.1); SODIUM 137 mmol/L (136-145)
[2017-12-09] MEDS ORDERED: MAGNESIUM OXIDE 400 MG TABLET (FP) PO ONE (08:00)
[2017-12-09] MEDS: oxyCODONE HCL 5 MG TABLET PO PRN ×2 (08:41→16:54)
--- NOTE | 2017-12-09 09:09 | PN ---
Physical Exam: SUBJECTIVE: Patient seen and examined at bedside in the ICU Pending transfer to floor still did not have a BM but did have flatus Tolerating CLD OBJECTIVE: Vital Signs Period Temp Pulse Resp BP Sys/Ling Pulse Ox Last 24 Hr 98.8 F-99.8 F 86-95 20-26 118-146/70-82 100-100 GENERAL: The patient is awake, alert, and fully oriented, in no acute distress. HEAD: Normal with no signs of trauma. EYES: PERRL ENT: moist mucous membranes. NECK: Trachea midline, full range of motion, supple. LUNGS: Breath sounds equal, clear to auscultation bilaterally, no wheezes, no crackles, no accessory muscle use. HEART: Regular rate and rhythm, S1, S2 ABDOMEN: Soft, nontender, slightly distended, hypoactive bowel sounds EXTREMITIES: warm, well-perfused, no edema. Full range of motion in all extremities. Sensation in tact. Coban dressing in place without any drainage on the dressing. NEUROLOGICAL: Cranial nerves II through XII grossly intact. Normal speech, gait not observed. PSYCH: Normal mood, normal affect. Laboratory Results - last 24 hr 12/09/17 12/09/17 05:30 05:30 WBC 17.6 H RBC 4.08 Hgb 10.2 L Hct 32.2 L MCV 78.9 L MCH 25.0 L MCHC 31.7 L RDW 14.7 Plt Count 198 MPV 8.6 Sodium 137 Potassium 4.2 Chloride 98 Carbon Dioxide 30 Anion Gap 9 BUN 14 Creatinine 1.0 Creat Clearance w eGFR > 60 Random Glucose 94 Calcium 8.2 L Magnesium 1.8 Active Medications Generic Name Dose Route Start Last Admin Trade Name Freq PRN Reason Stop Dose Admin Benzocaine/Menthol 1 each 12/07/17 20:37 Cepacol Lozenge - MM Q6H PRN SORE THROAT Chlorhexidine Gluconate 1 applic 12/07/17 22:00 12/08/17 21:43 Hibiclens For Decolonization - TP 1 applic HS ESTEFANIA Administration Docusate Sodium 100 mg 12/08/17 11:24 12/09/17 05:00 Colace - PO 100 mg Q8H PRN Administration CONSTIPATION Gabapentin 300 mg 12/07/17 22:00 12/08/17 21:43 Neurontin - PO 300 mg BID ESTEFANIA Administration Hydrochlorothiazide 25 mg 12/08/17 10:00 12/08/17 09:24 Hctz - PO 25 mg DAILY ESTEFANIA Administration Mupirocin 1 applic 12/07/17 22:00 12/08/17 21:43 Bactroban Ointment (For Decolonization) - NS 12/12/17 21:59 1 applic BID ESTEFANIA Administration Ondansetron HCl 4 mg 12/07/17 12:04 Zofran Injection IVPUSH Q6H PRN NAUSEA AND/OR VOMITING Ondansetron HCl 4 mg 12/07/17 13:13 Zofran Injection IVPUSH Q6H PRN NAUSEA AND/OR VOMITING Oxycodone HCl 5 mg 12/07/17 12:12 Roxicodone - PO Q3H PRN PAIN LEVEL 1-5 Oxycodone HCl 10 mg 12/07/17 12:12 12/09/17 08:41 Roxicodone - PO 10 mg Q3H PRN Administration PAIN LEVEL 6-10 ASSESSMENT/PLAN: 52M with history of HTN and lumbar stenosis who presents to the ICU POD#2 s/p L4 -S1 laminectomies, L4-L5, & L5-S1 PLIF, L4-S1 PISF and both Bone Autograft and Allograft. Lumbar stenosis POD #2 Pain control with oral Oxycodone WBAT PT Drain D/C'ed continue neurontin Leukocytosis: Likely stress reaction secondary surgery Patient also has low grade temp no symptoms of infection Will continue to trend for now if spikes will consider dietz culturing Constipation: likely due to a combination of surgery, anesthesia, and opioids Will give a suppository of dulcolax Will give PO dulcolax will give make colace scheduled instead of PRN HTN: BP well controlled continue HCTZ 25mg po daily FEN: D/C IVF no electrolyte issues CLD PPx: SCDs: no chemical PPx per Dr. Beck Case discusses with Dr. Lira Transfer to floor Visit type - Emergency Visit Emergency Visit: No - New Patient This patient is new to me today: No - Critical Care Critical Care patient: No
[2017-12-09] MEDS: HYDROCHLOROTHIAZIDE 25 MG TABLET (FP) PO SCH (09:56)
[2017-12-09] MEDS: GABAPENTIN 300 MG CAPSULE (FP) PO SCH ×2 (09:56→21:14)
[2017-12-09] MEDS: MUPIROCIN 2% TOPICAL OINTMENT FOR DECOLONIZATION NS SCH (09:58)
[2017-12-09] MEDS ORDERED: BISACODYL 5 MG TABLET.DR (FP) PO ONE (11:03)
[2017-12-09] MEDS ORDERED: BISACODYL 10 MG SUPP.RECT PR ONE (11:03)
[2017-12-09] MEDS: DOCUSATE SODIUM 100 MG CAPSULE (FP) PO SCH ×2 (11:28→21:14)
--- NOTE | 2017-12-09 12:40 | PN ---
Teaching Attending Note Name of Resident: Naga Gauthier ATTENDING PHYSICIAN STATEMENT I saw and evaluated the patient. I reviewed the resident's note and discussed the case with the resident. I agree with the resident's findings and plan as documented. SUBJECTIVE: Pt seen and examined in the ICU. Pain controlled. Drain removed. No nausea or vomiting. +flatus but no BM. OBJECTIVE: Vital Signs Period Temp Pulse Resp BP Sys/Ling Pulse Ox Last 24 Hr 98.5 F-99.8 F 67-95 21-26 118-152/70-91 100-100 Intake & Output 12/06/17 12/07/17 12/08/17 12/09/17 23:59 23:59 23:59 23:59 Intake Total 1999 3121 1250 Output Total 1425 1525 900 Balance 575 1596 350 Gen: NAD at rest Heart: RRR Lung: decreased breath sounds at the bases Abd: soft, nontender Ext: no edema CBC, BMP 12/09/17 05:30 12/09/17 05:30 Active Medications Benzocaine/Menthol (Cepacol Lozenge -) 1 each MM Q6H PRN PRN Reason: SORE THROAT Chlorhexidine Gluconate (Hibiclens For Decolonization -) 1 applic TP HS [facility] Last Admin: 12/08/17 21:43 Dose: 1 applic Docusate Sodium (Colace -) 100 mg PO Q8H [facility] Last Admin: 12/09/17 11:28 Dose: 100 mg Gabapentin (Neurontin -) 300 mg PO BID [facility] Last Admin: 12/09/17 09:56 Dose: 300 mg Hydrochlorothiazide (Hctz -) 25 mg PO DAILY [facility] Last Admin: 12/09/17 09:56 Dose: 25 mg Mupirocin (Bactroban Ointment (For Decolonization) -) 1 applic NS BID [facility] Stop: 12/12/17 21:59 Last Admin: 12/09/17 09:58 Dose: 1 applic Ondansetron HCl (Zofran Injection) 4 mg IVPUSH Q6H PRN PRN Reason: NAUSEA AND/OR VOMITING Ondansetron HCl (Zofran Injection) 4 mg IVPUSH Q6H PRN PRN Reason: NAUSEA AND/OR VOMITING Oxycodone HCl (Roxicodone -) 5 mg PO Q3H PRN PRN Reason: PAIN LEVEL 1-5 Last Admin: 12/09/17 09:56 Dose: 5 mg Oxycodone HCl (Roxicodone -) 10 mg PO Q3H PRN PRN Reason: PAIN LEVEL 6-10 Last Admin: 12/09/17 08:41 Dose: 10 mg ASSESSMENT AND PLAN: Lumbar Spinal Stenosis s/p L4-S1 Laminectomies/L4-L5, L5-S1 PLIF/L4-S1 PISF Acute Blood Loss Anemia HTN - pain control - incentive spirometry - advance diet as tolerated - rehab/PT - monitor H/H - DVT prophylaxis - can monitor on floor
--- NOTE | 2017-12-09 13:34 | PN ---
Physical Exam: SUBJECTIVE: Patient seen and examined. Pt states that he has not had a bowel movement since Thursday. Pt. says that lower back pain is about the same as yesterday and worse with movement. Pt. has passed urine and gas. Pt. endorses chills , had a temperature of 99 degrees at that time. Pt. was afebrile the entire night. Pt. denies numbness tingling of the extremities at any point. OBJECTIVE: Vital Signs Period Temp Pulse Resp BP Sys/Ling Pulse Ox Last 24 Hr 98.5 F-99.8 F 67-95 21-26 118-152/70-91 100-100 GENERAL: The patient is awake, alert, and fully oriented, in no acute distress. LUNGS: Breath sounds equal, clear to auscultation bilaterally, no wheezes, no crackles, no accessory muscle use. HEART: Regular rate and rhythm, S1, S2 without murmur EXTREMITIES: 5/5 muscle strength b/l, motor and sensory grossly intact, 2+ pulses, warm, well-perfused, no edema. NEUROLOGICAL: Normal speech. PSYCH: Normal mood, normal affect. SKIN: Warm, dry, normal turgor, Pt.'s dressing was c/d/i on back Laboratory Results - last 24 hr 12/09/17 12/09/17 05:30 05:30 WBC 17.6 H RBC 4.08 Hgb 10.2 L Hct 32.2 L MCV 78.9 L MCH 25.0 L MCHC 31.7 L RDW 14.7 Plt Count 198 MPV 8.6 Sodium 137 Potassium 4.2 Chloride 98 Carbon Dioxide 30 Anion Gap 9 BUN 14 Creatinine 1.0 Creat Clearance w eGFR > 60 Random Glucose 94 Calcium 8.2 L Magnesium 1.8 Active Medications Current Medications Benzocaine/Menthol (Cepacol Lozenge -) 1 each MM Q6H PRN PRN Reason: SORE THROAT Chlorhexidine Gluconate (Hibiclens For Decolonization -) 1 applic TP HS [facility] Last Admin: 12/08/17 21:43 Dose: 1 applic Docusate Sodium (Colace -) 100 mg PO Q8H [facility] Last Admin: 12/09/17 11:28 Dose: 100 mg Gabapentin (Neurontin -) 300 mg PO BID [facility] Last Admin: 12/09/17 09:56 Dose: 300 mg Hydrochlorothiazide (Hctz -) 25 mg PO DAILY [facility] Last Admin: 12/09/17 09:56 Dose: 25 mg Mupirocin (Bactroban Ointment (For Decolonization) -) 1 applic NS BID [facility] Stop: 12/12/17 21:59 Last Admin: 12/09/17 09:58 Dose: 1 applic Ondansetron HCl (Zofran Injection) 4 mg IVPUSH Q6H PRN PRN Reason: NAUSEA AND/OR VOMITING Ondansetron HCl (Zofran Injection) 4 mg IVPUSH Q6H PRN PRN Reason: NAUSEA AND/OR VOMITING Oxycodone HCl (Roxicodone -) 5 mg PO Q3H PRN PRN Reason: PAIN LEVEL 1-5 Last Admin: 12/09/17 09:56 Dose: 5 mg Oxycodone HCl (Roxicodone -) 10 mg PO Q3H PRN PRN Reason: PAIN LEVEL 6-10 Last Admin: 12/09/17 08:41 Dose: 10 mg Senna (Senna -) 1 tab PO [facility] ASSESSMENT/PLAN: 52 y/o M with PMH HTN, lumbar spinal stenosis, who is currently s/p L4-S1 laminectomies; L4-L5, & L5-S1 PLIF, L4-S1 PISF POD #2. #Musculoskeletal -s/p LL4-S1 laminectomies; L4-L5, & L5-S1 PLIF, L4-S1 PISF POD #2 -Pain controlled per Anaesthesia, No NSAIDs. Pt. has IV Tylenol, Gabapentin and oxycontin as needed. -Drain removed -PT appreciated, Pt. walked 10ft. with a walker -OOB- weight bearing as tolerated -q4h b/l neurovascular checks -Incentive Spirometry q15min #Cardiovascular -c/w HCTZ for HTN #F/E/N -continue to follow lytes -c/w oral clear liquids, Pt denies appetite, advance diet as tolerated -Alan removed (12/08/17) -Pt. has passed 900ccs over night (12/08/17-12/09/17) #Gastroenterology -Has not had BM since Thursday as per Pt. -Passing Gas -c/w clear liquids as Pt. denies having appetite -c/w docusate and senna #DVT Ppx. -SCD's/ALFRED's Dispo: -med/surg -Discharge planning: f/u 7-10 days after discharge at [facility] office; call for appointment; ; no bending, lifting more than 5lbs , or twisting x 6 months. Visit type - Emergency Visit Emergency Visit: No - New Patient This patient is new to me today: No - Critical Care Critical Care patient: No - Discharge Referral Referred to [facility] Med P.C.: No
--- NOTE | 2017-12-09 13:50 | PN ---
Teaching Attending Note Name of Resident: Taco Rankin ATTENDING PHYSICIAN STATEMENT I saw and evaluated the patient. I reviewed the resident's note and discussed the case with the resident. I agree with the resident's findings and plan as documented. SUBJECTIVE: Patient reports he is having low back pain. He says he has not had a bowel movement in 4 days. He denies nausea, vomiting. He is passing flatus. OBJECTIVE: Vital Signs Period Temp Pulse Resp BP Sys/Ling Pulse Ox Last 24 Hr 98.5 F-99.8 F 67-95 21-26 118-152/70-91 100-100 HEART: S1S2, RRR LUNGS: Clear ABDOMEN: Obese, soft, non-tender, normal BS EXTREMITIES: No edema Laboratory Results - last 24 hr 12/09/17 12/09/17 05:30 05:30 WBC 17.6 H RBC 4.08 Hgb 10.2 L Hct 32.2 L MCV 78.9 L MCH 25.0 L MCHC 31.7 L RDW 14.7 Plt Count 198 MPV 8.6 Sodium 137 Potassium 4.2 Chloride 98 Carbon Dioxide 30 Anion Gap 9 BUN 14 Creatinine 1.0 Creat Clearance w eGFR > 60 Random Glucose 94 Calcium 8.2 L Magnesium 1.8 Current Medications Generic Name Dose Route Start Last Admin Trade Name Freq PRN Reason Stop Dose Admin Benzocaine/Menthol 1 each 12/07/17 20:37 Cepacol Lozenge - MM Q6H PRN SORE THROAT Chlorhexidine Gluconate 1 applic 12/07/17 22:00 12/08/17 21:43 Hibiclens For Decolonization - TP 1 applic HS ESTEFANIA Administration Docusate Sodium 100 mg 12/09/17 11:15 12/09/17 11:28 Colace - PO 100 mg Q8H ESTEFANIA Administration Gabapentin 300 mg 12/07/17 22:00 12/09/17 09:56 Neurontin - PO 300 mg BID ESTEFANIA Administration Hydrochlorothiazide 25 mg 12/08/17 10:00 12/09/17 09:56 Hctz - PO 25 mg DAILY ESTEFANIA Administration Mupirocin 1 applic 12/07/17 22:00 12/09/17 09:58 Bactroban Ointment (For Decolonization) - NS 12/12/17 21:59 1 applic BID ESTEFANIA Administration Ondansetron HCl 4 mg 12/07/17 12:04 Zofran Injection IVPUSH Q6H PRN NAUSEA AND/OR VOMITING Ondansetron HCl 4 mg 12/07/17 13:13 Zofran Injection IVPUSH Q6H PRN NAUSEA AND/OR VOMITING Oxycodone HCl 5 mg 12/07/17 12:12 12/09/17 09:56 Roxicodone - PO 5 mg Q3H PRN Administration PAIN LEVEL 1-5 Oxycodone HCl 10 mg 12/07/17 12:12 12/09/17 08:41 Roxicodone - PO 10 mg Q3H PRN Administration PAIN LEVEL 6-10 Senna 1 tab 12/09/17 22:00 Senna - PO HS ESTEFANIA ASSESSMENT AND PLAN: This is a 52 year old man with a history of HTN, lumbar stenosis who is s/p L4- S1 laminectomies, L4-L5, & L5-S1 PLIF, L4-S1 PISF, bone autograft, bone allograft. 1. Lumbar stenosis - POD #1 s/p L4-S1 laminectomies, L4-L5, & L5-S1 PLIF, L4-S1 PISF, bone autograft, bone allograft - Continue Neurontin - Pain control - Physical therapy 2. Constipation - Secondary to pain medication, post-op - Ambulation - Dulcolax given - Colace, Senna started 3. Leukocytosis - No obvious infection - Monitor WBC 4. HTN - Continue HCTZ 5. DVT prophylaxis - SCDs
[2017-12-09] MEDS ORDERED: ONDANSETRON 4 MG/2 ML VIAL IVPUSH PRN (17:15)
[2017-12-09] MEDS ORDERED: BUPIVACAINE LIPOSOME/PF (EXPAREL) 266 MG/20 ML VIAL NR ONE (17:15)
[2017-12-09] MEDS ORDERED: BENZOCAINE/MENTH/CETYLPYRD CL 1 EACH LOZENGE MM PRN (17:15)
[2017-12-09] MEDS: SENNOSIDES 8.6MG TABLET (FP) PO SCH (21:06)
[2017-12-09] MEDS: ACETAMINOPHEN 325 MG TABLET (FP) PO PRN (21:06)
[2017-12-09] MEDS: CHLORHEXIDINE GLUCONATE 4% CLEANSER FOR DECOLONIZATION TP SCH (21:09)
[2017-12-09] MEDS: POLYETHYLENE GLYCOL 3350 119 GM BTL PO SCH (22:00)
[2017-12-10] MEDS: ACETAMINOPHEN 325 MG TABLET (FP) PO PRN (00:30)
[2017-12-10] MEDS: DOCUSATE SODIUM 100 MG CAPSULE (FP) PO SCH ×3 (03:30→19:19)
[2017-12-10 06:30] LABS: BASO % 0.2 % (0-2.0); EOS % 0.3 % (0-4.5); HEMATOCRIT 30.2 % (35.4-49); HEMOGLOBIN 9.6 GM/dL (11.7-16.9); LYMPH % 8.7 % (8-40); MCHC 31.7 g/dl (32.0-35.9); MEAN CELL VOLUME 78.8 fl (80-96); MEAN PLT VOLUME 8.9 fl (7.5-11.1); MONO % 13.9 % (3.8-10.2); NEUT % 76.9 % (42.8-82.8); PLATELET COUNT 205 K/MM3 (134-434); RBC 3.83 M/mm3 (4.00-5.60); RDW 14.5 % (11.9-15.9); WHITE BLOOD COUNT 14.2 K/mm3 (4.0-10.0)
[2017-12-10] MEDS ORDERED: SODIUM PHOSPHATE/NA BIPHOS 133 ML ENEMA PR ONE (09:57)
[2017-12-10] MEDS ORDERED: BISACODYL 10 MG SUPP.RECT RC ONE (09:57)
[2017-12-10] MEDS ORDERED: BISACODYL 5 MG TABLET.DR (FP) PO ONE ×3 (10:15→11:30)
[2017-12-10] MEDS ORDERED: PT OWN MED DRAWER 7, Y5N ONE (10:25)
[2017-12-10] MEDS: GABAPENTIN 300 MG CAPSULE (FP) PO SCH ×2 (10:34→22:02)
[2017-12-10] MEDS: HYDROCHLOROTHIAZIDE 25 MG TABLET (FP) PO SCH (10:34)
[2017-12-10] MEDS: POLYETHYLENE GLYCOL 3350 119 GM BTL PO SCH ×2 (10:51→22:04)
--- NOTE | 2017-12-10 11:55 | PN ---
Physical Exam: SUBJECTIVE: Patient seen and examined at bedside in the ICU pending transfer to Med/Surg Still has not had a BM having flatus tolerating regular diet OBJECTIVE: Vital Signs Period Temp Pulse Resp BP Sys/Ling Pulse Ox Last 24 Hr 98.6 F-98.8 F 87-91 17-21 138-154/77-80 100 GENERAL: The patient is awake, alert, and fully oriented, in no acute distress. HEAD: Normal with no signs of trauma. EYES: PERRL ENT: moist mucous membranes. NECK: Trachea midline, full range of motion, supple. LUNGS: Breath sounds equal, clear to auscultation bilaterally, no wheezes, no crackles, no accessory muscle use. HEART: Regular rate and rhythm, S1, S2 ABDOMEN: Soft, nontender, distended, hypoactive bowel sounds EXTREMITIES: warm, well-perfused, no edema. Full range of motion in all extremities. Sensation in tact. Coban dressing in place without any drainage on the dressing. NEUROLOGICAL: Cranial nerves II through XII grossly intact. Normal speech, gait not observed. PSYCH: Normal mood, normal affect. Laboratory Results - last 24 hr 12/10/17 05:30 WBC 14.2 H RBC 3.83 L Hgb 9.6 L Hct 30.2 L MCV 78.8 L MCH 25.0 L MCHC 31.7 L RDW 14.5 Plt Count 205 MPV 8.9 Absolute Neuts (auto) 10.9 H Neutrophils % 76.9 Lymphocytes % 8.7 Monocytes % 13.9 H Eosinophils % 0.3 Basophils % 0.2 Nucleated RBC % 0 Active Medications Generic Name Dose Route Start Last Admin Trade Name Telloq PRN Reason Stop Dose Admin Acetaminophen 650 mg 12/09/17 20:40 12/10/17 00:30 Tylenol - PO 650 mg Q4H PRN Administration PAIN LEVEL 1-5 Benzocaine/Menthol 1 each 12/09/17 17:15 Cepacol Lozenge - MM Q6H PRN SORE THROAT Chlorhexidine Gluconate 1 applic 12/09/17 22:00 12/09/17 21:09 Hibiclens For Decolonization - TP 1 applic HS ESTEFANIA Administration Docusate Sodium 100 mg 12/09/17 11:15 12/10/17 10:42 Colace - PO 100 mg Q8H ESTEFANIA Administration Gabapentin 300 mg 12/09/17 22:00 12/10/17 10:34 Neurontin - PO 300 mg BID ESTEFANIA Administration Hydrochlorothiazide 25 mg 12/10/17 10:00 12/10/17 10:34 Hctz - PO 25 mg DAILY ESTEFANIA Administration Magnesium Citrate 300 ml 12/10/17 11:27 Citroma - PO PRN PRN CONSTIPATION Ondansetron HCl 4 mg 12/09/17 17:15 Zofran Injection IVPUSH Q6H PRN NAUSEA AND/OR VOMITING Oxycodone HCl 5 mg 12/09/17 17:15 Roxicodone - PO Q3H PRN PAIN LEVEL 6-10 Polyethylene Glycol 17 gm 12/09/17 22:00 12/10/17 10:51 Miralax (For Daily Use) - PO 17 grams BID ESTEFANIA Administration Senna 1 tab 12/09/17 22:00 12/09/17 21:06 Senna - PO 1 tab HS ESTEFANIA Administration ASSESSMENT/PLAN: 52M with history of HTN and lumbar stenosis who presents to the ICU POD#3 s/p L4 -S1 laminectomies, L4-L5, & L5-S1 PLIF, L4-S1 PISF and both Bone Autograft and Allograft. Lumbar stenosis POD #3 Pain control with oral Oxycodone WBAT PT Drain D/C'ed continue neurontin Leukocytosis: Likely stress reaction secondary surgery no symptoms of infection if spikes will consider dietz culturing Trending back down will stop trending Constipation: likely due to a combination of surgery, anesthesia, and opioids Will give another suppository of dulcolax Fleet enema Will give PO dulcolax colace Miralax BID FLeet enema Relistor for opioid induced constipation HTN: BP well controlled continue HCTZ 25mg po daily FEN: D/C IVF no electrolyte issues Regular diet PPx: SCDs: no chemical PPx per Dr. Beck Case discusses with Dr. Lira Transfer to floor Visit type - Emergency Visit Emergency Visit: No - New Patient This patient is new to me today: No - Critical Care Critical Care patient: No
[2017-12-10] MEDS ORDERED: Methylnaltrexone Bromide 12 MG/0.6 ML KIT SQ SCH (12:00)
[2017-12-10] MEDS ORDERED: MAGNESIUM CITRATE 300 ML BOTTLE PO PRN (12:10)
--- NOTE | 2017-12-10 12:33 | PN ---
Teaching Attending Note Name of Resident: Naga Gauthier ATTENDING PHYSICIAN STATEMENT I saw and evaluated the patient. I reviewed the resident's note and discussed the case with the resident. I agree with the resident's findings and plan as documented. SUBJECTIVE: Pt seen and examined in the ICU. Pain controlled. +flatus but no bowel movements. Walked with PT. OBJECTIVE: Vital Signs Period Temp Pulse Resp BP Sys/Ling Pulse Ox Last 24 Hr 98.6 F-98.8 F 87-91 17-21 138-154/77-80 100 Intake & Output 12/07/17 12/08/17 12/09/17 12/10/17 23:59 23:59 23:59 23:59 Intake Total 1999 3121 3050 Output Total 1425 1525 1500 Balance 575 1596 1550 Weight 111.13 kg Gen: NAD at rest Heart: RRR Lung: decreased breath sounds at the bases Abd: soft, nontender Ext: no edema Back: dressings clean CBC, BMP 12/10/17 05:30 12/09/17 05:30 Active Medications Acetaminophen (Tylenol -) 650 mg PO Q4H PRN PRN Reason: PAIN LEVEL 1-5 Last Admin: 12/10/17 00:30 Dose: 650 mg Benzocaine/Menthol (Cepacol Lozenge -) 1 each MM Q6H PRN PRN Reason: SORE THROAT Chlorhexidine Gluconate (Hibiclens For Decolonization -) 1 applic TP HS [facility] Last Admin: 12/09/17 21:09 Dose: 1 applic Docusate Sodium (Colace -) 100 mg PO Q8H [facility] Last Admin: 12/10/17 10:42 Dose: 100 mg Gabapentin (Neurontin -) 300 mg PO BID [facility] Last Admin: 12/10/17 10:34 Dose: 300 mg Hydrochlorothiazide (Hctz -) 25 mg PO DAILY [facility] Last Admin: 12/10/17 10:34 Dose: 25 mg Magnesium Citrate (Citroma -) 300 ml PO Q48H PRN PRN Reason: CONSTIPATION Stop: 12/12/17 12:11 Methylnaltrexone [place] (Relistor -) 12 mg SQ DAILY [facility] Ondansetron HCl (Zofran Injection) 4 mg IVPUSH Q6H PRN PRN Reason: NAUSEA AND/OR VOMITING Oxycodone HCl (Roxicodone -) 5 mg PO Q3H PRN PRN Reason: PAIN LEVEL 6-10 Polyethylene Glycol (Miralax (For Daily Use) -) 17 gm PO BID [facility] Last Admin: 12/10/17 10:51 Dose: 17 grams Senna (Senna -) 1 tab PO HS [facility] Last Admin: 12/09/17 21:06 Dose: 1 tab ASSESSMENT AND PLAN: Lumbar Spinal Stenosis s/p L4-S1 Laminectomies/L4-L5, L5-S1 PLIF/L4-S1 PISF Acute Blood Loss Anemia HTN - pain control - incentive spirometry - advance diet as tolerated - increase bowel regimen - rehab/PT - monitor H/H - DVT prophylaxis - can monitor on floor
--- NOTE | 2017-12-10 13:51 | PN ---
Physical Exam: SUBJECTIVE: Patient seen and examined. Pt. complained of chills overnight. Pt.' s temperature at this time was 98.8. Pt. was given Tylenol. Pt. endorses havign appetite and is requesting food. Pt. had a BM in the later on in the morning. Pt. endorses walking to the bathroom with the aid of a walker. OBJECTIVE: Vital Signs Period Temp Pulse Resp BP Sys/Ling Pulse Ox Last 24 Hr 98.6 F-98.8 F 87-91 17-21 138-154/77-80 100 GENERAL: The patient is awake, alert, and fully oriented, sitting up in no acute distress. LUNGS: Breath sounds equal, clear to auscultation bilaterally, no wheezes, no crackles, no accessory muscle use. HEART: Regular rate and rhythm, S1, S2 without murmur ABDOMEN: Soft, mild tenderness to palpation in the R+L lower quadrants, nondistended, normoactive bowel sounds, no guarding, no rebound EXTREMITIES: 2+ pulses, warm, well-perfused, no edema, no calf tenderness. NEUROLOGICAL: 5/5 muscle strength PSYCH: Normal mood, normal affect. BACK: Dressing in tact, looks moist under the dressing. Pt. was seen by Dr. Bekc just prior. Laboratory Results - last 24 hr 12/10/17 05:30 WBC 14.2 H RBC 3.83 L Hgb 9.6 L Hct 30.2 L MCV 78.8 L MCH 25.0 L MCHC 31.7 L RDW 14.5 Plt Count 205 MPV 8.9 Absolute Neuts (auto) 10.9 H Neutrophils % 76.9 Lymphocytes % 8.7 Monocytes % 13.9 H Eosinophils % 0.3 Basophils % 0.2 Nucleated RBC % 0 Active Medications Current Medications Acetaminophen (Tylenol -) 650 mg PO Q4H PRN PRN Reason: PAIN LEVEL 1-5 Last Admin: 12/10/17 00:30 Dose: 650 mg Benzocaine/Menthol (Cepacol Lozenge -) 1 each MM Q6H PRN PRN Reason: SORE THROAT Chlorhexidine Gluconate (Hibiclens For Decolonization -) 1 applic TP HS [facility] Last Admin: 12/09/17 21:09 Dose: 1 applic Docusate Sodium (Colace -) 100 mg PO Q8H [facility] Last Admin: 12/10/17 10:42 Dose: 100 mg Gabapentin (Neurontin -) 300 mg PO BID [facility] Last Admin: 12/10/17 10:34 Dose: 300 mg Hydrochlorothiazide (Hctz -) 25 mg PO DAILY [facility] Last Admin: 12/10/17 10:34 Dose: 25 mg Magnesium Citrate (Citroma -) 300 ml PO Q48H PRN PRN Reason: CONSTIPATION Stop: 12/12/17 12:11 Methylnaltrexone [place] (Relistor -) 12 mg SQ DAILY [facility] Ondansetron HCl (Zofran Injection) 4 mg IVPUSH Q6H PRN PRN Reason: NAUSEA AND/OR VOMITING Oxycodone HCl (Roxicodone -) 5 mg PO Q3H PRN PRN Reason: PAIN LEVEL 6-10 Polyethylene Glycol (Miralax (For Daily Use) -) 17 gm PO BID [facility] Last Admin: 12/10/17 10:51 Dose: 17 grams Senna (Senna -) 1 tab PO HS [facility] Last Admin: 12/09/17 21:06 Dose: 1 tab ASSESSMENT/PLAN: 52 y/o M with PMH HTN, lumbar spinal stenosis, who is currently s/p L4-S1 laminectomies; L4-L5, & L5-S1 PLIF, L4-S1 PISF POD #3. #Musculoskeletal -s/p LL4-S1 laminectomies; L4-L5, & L5-S1 PLIF, L4-S1 PISF POD #3 -Pain controlled per Anaesthesia, No NSAIDs. Pt. has IV Tylenol, Gabapentin and oxycodone as needed. -Drain removed -PT appreciated, Pt. walked 10ft. with a walker (12/08/29)-->300ft. (12/09/17) -OOB- weight bearing as tolerated -q4h b/l neurovascular checks -Incentive Spirometry q15min #Cardiovascular -c/w HCTZ for HTN #F/E/N -continue to follow lytes -c/w oral clear liquids, Pt denies appetite, advance diet as tolerated -Alan removed (12/08/17) -Pt. has passed 900ccs over night (12/08/17-12/09/17) #Gastroenterology -Passing Gas -Pt. has had BM( 12/10/17) -Advanced to full diet, as Pt. has appetite and is passing gas -c/w docusate, senna, miralax, and magnesium citrate as needed, consider adding relistor if Pt. is chronically constipated. -Pt. says he takes epsom salt(magnesium sulfate) at home with water to help have bowel movements. -KUB (12/09/17) shows fecal retention, recent abdominal surgery w/ surgical audrey and clips in midline of lower abdomen. #DVT Ppx. -SCD's/ALFRED's Dispo: -med/surg -Discharge planning: f/u 7-10 days after discharge at [facility] office; call for appointment; ; no bending, lifting more than 5lbs , or twisting x 6 months. Visit type - Emergency Visit Emergency Visit: No - New Patient This patient is new to me today: No - Critical Care Critical Care patient: No - Discharge Referral Referred to [facility] Med P.C[facility] No
[2017-12-10] MEDS: oxyCODONE HCL 5 MG TABLET PO PRN ×2 (15:09→20:24)
--- NOTE | 2017-12-10 16:15 | PN ---
Teaching Attending Note Name of Resident: Taco Rankin ATTENDING PHYSICIAN STATEMENT I saw and evaluated the patient. I reviewed the resident's note and discussed the case with the resident. I agree with the resident's findings and plan as documented. SUBJECTIVE: Patient feels tired. He had a large bowel movement after a Fleet enema this morning. OBJECTIVE: Vital Signs Period Temp Pulse Resp BP Sys/Ling Pulse Ox Last 24 Hr 98.5 F-98.8 F 87-91 17-22 141-170/79-85 100 HEART: S1S2, RRR LUNGS: Clear ABDOMEN: Obese, soft, non-tender, non-distended, normal BS EXTREMITIES: No edema Laboratory Results - last 24 hr 12/10/17 05:30 WBC 14.2 H RBC 3.83 L Hgb 9.6 L Hct 30.2 L MCV 78.8 L MCH 25.0 L MCHC 31.7 L RDW 14.5 Plt Count 205 MPV 8.9 Absolute Neuts (auto) 10.9 H Neutrophils % 76.9 Lymphocytes % 8.7 Monocytes % 13.9 H Eosinophils % 0.3 Basophils % 0.2 Nucleated RBC % 0 Current Medications Generic Name Dose Route Start Last Admin Trade Name Freq PRN Reason Stop Dose Admin Acetaminophen 650 mg 12/09/17 20:40 12/10/17 00:30 Tylenol - PO 650 mg Q4H PRN Administration PAIN LEVEL 1-5 Benzocaine/Menthol 1 each 12/09/17 17:15 Cepacol Lozenge - MM Q6H PRN SORE THROAT Chlorhexidine Gluconate 1 applic 12/09/17 22:00 12/09/17 21:09 Hibiclens For Decolonization - TP 1 applic HS ESTEFANIA Administration Docusate Sodium 100 mg 12/09/17 11:15 12/10/17 10:42 Colace - PO 100 mg Q8H ESTEFANIA Administration Gabapentin 300 mg 12/09/17 22:00 12/10/17 10:34 Neurontin - PO 300 mg BID ESTEFANIA Administration Hydrochlorothiazide 25 mg 12/10/17 10:00 12/10/17 10:34 Hctz - PO 25 mg DAILY ESTEFANIA Administration Magnesium Citrate 300 ml 12/10/17 12:10 Citroma - PO 12/12/17 12:11 Q48H PRN CONSTIPATION Ondansetron HCl 4 mg 12/09/17 17:15 Zofran Injection IVPUSH Q6H PRN NAUSEA AND/OR VOMITING Oxycodone HCl 5 mg 12/09/17 17:15 12/10/17 15:09 Roxicodone - PO 5 mg Q3H PRN Administration PAIN LEVEL 6-10 Polyethylene Glycol 17 gm 12/09/17 22:00 12/10/17 10:51 Miralax (For Daily Use) - PO 17 grams BID ESTEFANIA Administration Senna 1 tab 12/09/17 22:00 12/09/17 21:06 Senna - PO 1 tab HS ESTEFANIA Administration ASSESSMENT AND PLAN: This is a 52 year old man with a history of HTN, lumbar stenosis who is s/p L4- S1 laminectomies, L4-L5, & L5-S1 PLIF, L4-S1 PISF, bone autograft, bone allograft. 1. Lumbar stenosis - POD #3 s/p L4-S1 laminectomies, L4-L5, & L5-S1 PLIF, L4-S1 PISF, bone autograft, bone allograft - Continue Neurontin - Pain control - Physical therapy 2. Constipation - Secondary to pain medication, post-op - Improved with Fleet enema - Ambulation - Continue Colace, Senna, Miralax 3. Leukocytosis - No obvious infection - Improving 4. HTN - Continue HCTZ 5. Obesity with BMI 31.5 6. DVT prophylaxis - SCDs
[2017-12-10] MEDS: CHLORHEXIDINE GLUCONATE 4% CLEANSER FOR DECOLONIZATION TP SCH (22:04)
[2017-12-10] MEDS: SENNOSIDES 8.6MG TABLET (FP) PO SCH (22:05)
[2017-12-11 06:11] LABS: HEMATOCRIT 28.9 % (35.4-49); HEMOGLOBIN 9.4 GM/dL (11.7-16.9); MCH 25.6 pg (25.7-33.7); MCHC 32.6 g/dl (32.0-35.9); MEAN CELL VOLUME 78.3 fl (80-96); MEAN PLT VOLUME 8.3 fl (7.5-11.1); PLATELET COUNT 253 K/MM3 (134-434); RBC 3.69 M/mm3 (4.00-5.60); RDW 14.2 % (11.9-15.9); WHITE BLOOD COUNT 10.6 K/mm3 (4.0-10.0)
[2017-12-11] MEDS: ACETAMINOPHEN 325 MG TABLET (FP) PO PRN (07:47)
--- NOTE | 2017-12-11 09:36 | PN ---
Teaching Attending Note Name of Resident: Naga Gauthier ATTENDING PHYSICIAN STATEMENT I saw and evaluated the patient. I reviewed the resident's note and discussed the case with the resident. I agree with the resident's findings and plan as documented. SUBJECTIVE: Pt seen and examined in the ICU. Had multiple bowel movements. No nausea or vomiting. Tolerating PO and PT. OBJECTIVE: Vital Signs Period Temp Pulse Resp BP Sys/Ling Pulse Ox Last 24 Hr 98.2 F-98.8 F 77-98 12-22 134-170/67-94 100 Intake & Output 12/08/17 12/09/17 12/10/17 12/11/17 23:59 23:59 23:59 23:59 Intake Total 3121 3050 Output Total 1525 1500 300 Balance 1596 1550 -300 Weight 111.13 kg Gen: NAD at rest Heart: RRR Lung: decreased breath sounds at the bases Abd: soft, nontender Ext: no edema CBC, BMP 12/11/17 05:30 12/09/17 05:30 Active Medications Acetaminophen (Tylenol -) 650 mg PO Q4H PRN PRN Reason: PAIN LEVEL 1-5 Last Admin: 12/11/17 07:47 Dose: 650 mg Benzocaine/Menthol (Cepacol Lozenge -) 1 each MM Q6H PRN PRN Reason: SORE THROAT Chlorhexidine Gluconate (Hibiclens For Decolonization -) 1 applic TP HS [facility] Last Admin: 12/10/17 22:04 Dose: 1 applic Docusate Sodium (Colace -) 100 mg PO Q8H [facility] Last Admin: 12/10/17 19:19 Dose: Not Given Gabapentin (Neurontin -) 300 mg PO BID [facility] Last Admin: 12/10/17 22:02 Dose: 300 mg Hydrochlorothiazide (Hctz -) 25 mg PO DAILY [facility] Last Admin: 12/10/17 10:34 Dose: 25 mg Magnesium Citrate (Citroma -) 300 ml PO Q48H PRN PRN Reason: CONSTIPATION Stop: 12/12/17 12:11 Ondansetron HCl (Zofran Injection) 4 mg IVPUSH Q6H PRN PRN Reason: NAUSEA AND/OR VOMITING Oxycodone HCl (Roxicodone -) 5 mg PO Q3H PRN PRN Reason: PAIN LEVEL 6-10 Last Admin: 12/10/17 20:24 Dose: 5 mg Polyethylene Glycol (Miralax (For Daily Use) -) 17 gm PO BID [facility] Last Admin: 12/10/17 22:04 Dose: Not Given Senna (Senna -) 1 tab PO HS [facility] Last Admin: 12/10/17 22:05 Dose: Not Given ASSESSMENT AND PLAN: Lumbar Spinal Stenosis s/p L4-S1 Laminectomies/L4-L5, L5-S1 PLIF/L4-S1 PISF Acute Blood Loss Anemia HTN - pain control - incentive spirometry - PO as tolerated - increase bowel regimen - rehab/PT - monitor H/H - DVT prophylaxis - can monitor on floor or d/c home
[2017-12-11] MEDS: HYDROCHLOROTHIAZIDE 25 MG TABLET (FP) PO SCH (09:44)
[2017-12-11] MEDS: GABAPENTIN 300 MG CAPSULE (FP) PO SCH (09:44)
--- NOTE | 2017-12-11 09:59 | PN ---
Physical Exam: SUBJECTIVE: Patient seen and examined. No acute events overnight. Pt. was able to have 4+ bowel movements. Pt. denies any CP, SOB, fever, numbness or tingling. Pt. endorses having some chills as the unit was cold last night but denied rigors. Pt. only complains of pain when getting up and when sitting down. OBJECTIVE: Vital Signs Period Temp Pulse Resp BP Sys/Ling Pulse Ox Last 24 Hr 98.2 F-98.8 F 77-98 12-22 134-170/67-94 100 GENERAL: The patient is awake, alert, and fully oriented, in no acute distress. LUNGS: Breath sounds equal, clear to auscultation bilaterally, no wheezes, no crackles, no accessory muscle use. HEART: Regular rate and rhythm, S1, S2 without murmur ABDOMEN: Soft, nontender, nondistended, normoactive bowel sounds, no guarding, no rebound EXTREMITIES: warm, well-perfused, no edema, no calf tenderness. PSYCH: Normal mood, normal affect. SKIN: Warm, dry, normal turgor Laboratory Results - last 24 hr 12/11/17 05:30 WBC 10.6 H RBC 3.69 L Hgb 9.4 L Hct 28.9 L MCV 78.3 L MCH 25.6 L MCHC 32.6 RDW 14.2 Plt Count 253 D MPV 8.3 Active Medications Current Medications Acetaminophen (Tylenol -) 650 mg PO Q4H PRN PRN Reason: PAIN LEVEL 1-5 Last Admin: 12/11/17 07:47 Dose: 650 mg Benzocaine/Menthol (Cepacol Lozenge -) 1 each MM Q6H PRN PRN Reason: SORE THROAT Chlorhexidine Gluconate (Hibiclens For Decolonization -) 1 applic TP HS [facility] Last Admin: 12/10/17 22:04 Dose: 1 applic Docusate Sodium (Colace -) 100 mg PO Q8H [facility] Last Admin: 12/10/17 19:19 Dose: Not Given Gabapentin (Neurontin -) 300 mg PO BID [facility] Last Admin: 12/11/17 09:44 Dose: 300 mg Hydrochlorothiazide (Hctz -) 25 mg PO DAILY [facility] Last Admin: 12/11/17 09:44 Dose: 25 mg Magnesium Citrate (Citroma -) 300 ml PO Q48H PRN PRN Reason: CONSTIPATION Stop: 12/12/17 12:11 Ondansetron HCl (Zofran Injection) 4 mg IVPUSH Q6H PRN PRN Reason: NAUSEA AND/OR VOMITING Oxycodone HCl (Roxicodone -) 5 mg PO Q3H PRN PRN Reason: PAIN LEVEL 6-10 Last Admin: 12/10/17 20:24 Dose: 5 mg Polyethylene Glycol (Miralax (For Daily Use) -) 17 gm PO BID [facility] Last Admin: 12/10/17 22:04 Dose: Not Given Senna (Senna -) 1 tab PO HS [facility] Last Admin: 12/10/17 22:05 Dose: Not Given ASSESSMENT/PLAN: 52 y/o M with PMHx. of HTN, lumbar spinal stenosis, who is currently s/p L4-S1 laminectomies; L4-L5, & L5-S1 PLIF, L4-S1 PISF POD #4. #Musculoskeletal -s/p LL4-S1 laminectomies; L4-L5, & L5-S1 PLIF, L4-S1 PISF POD #4 -Pain controlled per Anaesthesia, No NSAIDs. Pt. has PO Tylenol, Gabapentin and oxycodone as needed. -PT appreciated, Pt. walked 400ft. with a walker (12/10/17). #Cardiovascular -c/w HCTZ for HTN #F/E/N -Full Diet -Alan removed (12/08/17) -Pt. has passed 900ccs over night (12/08/17-12/09/17) #Gastroenterology -Pt. has had BM( 12/10/17) -Constipation resolved -c/w docusate, senna, miralax, and magnesium citrate as needed, consider adding relistor if Pt. is chronically constipated. -Pt. says he takes epsom salt(magnesium sulfate) at home with water to help have bowel movements. -KUB (12/09/17) shows fecal retention, recent abdominal surgery w/ surgical audrey and clips in midline of lower abdomen. #DVT Ppx. -SCD's/ALFRED's -OOB weight bearing as tolerated Dispo: -Home -Discharge planning: f/u 7-10 days after discharge at [facility] office; call for appointment; ; no bending, lifting more than 5lbs , or twisting x 6 months. Visit type - Emergency Visit Emergency Visit: No - New Patient This patient is new to me today: No - Critical Care Critical Care patient: No - Discharge Referral Referred to [facility] Med P.C.: No
--- NOTE | 2017-12-11 10:06 | DS ---
Physical Exam: SUBJECTIVE: Patient seen and examined at bedside in the ICU. Patient had a large bowel movement and feels much better. tolerating diet Stable for discharge OBJECTIVE: Vital Signs Period Temp Pulse Resp BP Sys/Ling Pulse Ox Last 24 Hr 98.2 F-98.8 F 77-98 12-22 134-170/67-94 100 PHYSICAL EXAM GENERAL: The patient is awake, alert, and fully oriented, in no acute distress. HEAD: Normal with no signs of trauma. EYES: PERRL ENT: moist mucous membranes. NECK: Trachea midline, full range of motion, supple. LUNGS: Breath sounds equal, clear to auscultation bilaterally, no wheezes, no crackles, no accessory muscle use. HEART: Regular rate and rhythm, S1, S2 ABDOMEN: Soft, nontender, nondistended, normoactive bowel sounds EXTREMITIES: warm, well-perfused, no edema. Full range of motion in all extremities. Sensation in tact. Incison C/D/I NEUROLOGICAL: Cranial nerves II through XII grossly intact. Normal speech, gait not observed. PSYCH: Normal mood, normal affect. LABS Laboratory Results - last 24 hr 12/11/17 05:30 WBC 10.6 H RBC 3.69 L Hgb 9.4 L Hct 28.9 L MCV 78.3 L MCH 25.6 L MCHC 32.6 RDW 14.2 Plt Count 253 D MPV 8.3 HOSPITAL COURSE: Date of Admission:12/07/17 Date of Discharge: 12/11/17 52M with spinal stenosis admitted after his spinal surgery. Patient is s/p L4- S1 laminectomies, L4-L5, & L5-S1 PLIF, L4-S1 PISF and both Bone Autograft and Allograft. His hospital course was complicated by constipation and leukocytosis. Leukocytosis reactive likely secondary to surgery and eventually trended downward. He finally had a bowel movement after an aggressive bowel regimen. He denies nausea vomiting fever chills chest pain or shortness of breath. patient has been able to ambulate post-op. His pain is well controlled sand vital signs are WNL. Patient is stable for discharge. Hemoglobin stable. Minutes to complete discharge: 35 Discharge Summary Reason For Visit: SPONDYLOLISTHESIS Current Active Problems Lumbar spinal stenosis (Acute) Hypertension (Chronic) Condition: Stable - Instructions Diet, Activity, Other Instructions: If you have acute onset of pain, chest pain, shortness of breath, fever, chills , calf swelling, or numbness and tingling in your arms and/or legs call your surgeon and/or go to the nearest emergency room please follow up with Dr. Beck as soon as possible. Follow up with your primary care doctor as well resume your regular home medications If you would like to follow up with me Dr. Rankin for primary care you can see me at [address] [place] [address] floor. You can call to schedule an appointment. I see patients on from 1-4:30. Take over the counter stool softners and/or laxatives while on pain medications so you do not get constipated again. It was a pleasure caring for you Disposition: HOME - Home Medications Comprehensive Discharge Medication List: Ambulatory Orders Ferrous Sulfate [Feosol] 325 mg PO DAILY 12/04/17 Hydrochlorothiazide [Hctz -] 25 mg PO DAILY 12/04/17 Clindamycin Topical Solution [Cleocin 1% Topical Solution -] 0 ml TP DAILY 12/07 Docusate Sodium [Colace -] 100 mg PO Q8H capsule 12/11/17 Gabapentin [Neurontin -] 300 mg PO BID #60 capsule 12/11/17 This patient is new to me today: No Emergency Visit: No Critical Care patient: No - Discharge Referral Referred to [facility] No
[2017-12-11] MEDS: POLYETHYLENE GLYCOL 3350 119 GM BTL PO SCH (11:11)
[2017-12-11 11:22] VITALS: TEMP 99.1
--- NOTE | 2017-12-11 11:37 | PN ---
Teaching Attending Note Name of Resident: Taco Rankin ATTENDING PHYSICIAN STATEMENT I saw and evaluated the patient. I reviewed the resident's note and discussed the case with the resident. I agree with the resident's findings and plan as documented. SUBJECTIVE: No complaints. Ambulated 400 feet with rolling walker with PT yesterday. OBJECTIVE: Vital Signs Period Temp Pulse Resp BP Sys/Ling Pulse Ox Last 24 Hr 98.2 F-99.1 F 77-98 12-22 133-170/67-94 100-100 HEART: S1S2, RRR LUNGS: Clear ABDOMEN: Obese, soft, non-tender, non-distended, normal BS EXTREMITIES: No edema Laboratory Results - last 24 hr 12/11/17 05:30 WBC 10.6 H RBC 3.69 L Hgb 9.4 L Hct 28.9 L MCV 78.3 L MCH 25.6 L MCHC 32.6 RDW 14.2 Plt Count 253 D MPV 8.3 Current Medications Generic Name Dose Route Start Last Admin Trade Name Freq PRN Reason Stop Dose Admin Acetaminophen 650 mg 12/09/17 20:40 12/11/17 07:47 Tylenol - PO 650 mg Q4H PRN Administration PAIN LEVEL 1-5 Benzocaine/Menthol 1 each 12/09/17 17:15 Cepacol Lozenge - MM Q6H PRN SORE THROAT Chlorhexidine Gluconate 1 applic 12/09/17 22:00 12/10/17 22:04 Hibiclens For Decolonization - TP 1 applic HS ESTEFANIA Administration Docusate Sodium 100 mg 12/09/17 11:15 12/10/17 19:19 Colace - PO Not Given Q8H ESTEFANIA Gabapentin 300 mg 12/09/17 22:00 12/11/17 09:44 Neurontin - PO 300 mg BID ESTEFANIA Administration Hydrochlorothiazide 25 mg 12/10/17 10:00 12/11/17 09:44 Hctz - PO 25 mg DAILY ESTEFANIA Administration Magnesium Citrate 300 ml 12/10/17 12:10 Citroma - PO 12/12/17 12:11 Q48H PRN CONSTIPATION Ondansetron HCl 4 mg 12/09/17 17:15 Zofran Injection IVPUSH Q6H PRN NAUSEA AND/OR VOMITING Oxycodone HCl 5 mg 12/09/17 17:15 12/10/17 20:24 Roxicodone - PO 5 mg Q3H PRN Administration PAIN LEVEL 6-10 Polyethylene Glycol 17 gm 12/09/17 22:00 12/11/17 11:11 Miralax (For Daily Use) - PO Not Given BID ESTEFANIA Senna 1 tab 12/09/17 22:00 12/10/17 22:05 Senna - PO Not Given HS ESTEFANIA ASSESSMENT AND PLAN: This is a 52 year old man with a history of HTN, lumbar stenosis who is s/p L4- S1 laminectomies, L4-L5, & L5-S1 PLIF, L4-S1 PISF, bone autograft, bone allograft. 1. Lumbar stenosis - POD #3 s/p L4-S1 laminectomies, L4-L5, & L5-S1 PLIF, L4-S1 PISF, bone autograft, bone allograft - Continue Neurontin 2. Constipation - Secondary to pain medication, post-op - Improved with Fleet enema - Ambulation - Continue Colace, Senna, Miralax 3. Leukocytosis - No obvious infection - Improving 4. HTN - Continue HCTZ 5. Obesity with BMI 31.5 6. Disposition - Ok for discharge home today
[2017-12-11] MEDS: DOCUSATE SODIUM 100 MG CAPSULE (FP) PO SCH (11:45)
[2017-12-11] MEDS ORDERED: Methylnaltrexone Bromide 12 MG/0.6 ML KIT SQ SCH (12:00)
[2017-12-11 16:40] VITALS: BP 135/78; PULSE 84
== END 2017-12-11 16:04 | disposition home or self-care (01) | DRG 304 ==
LOC: JSAMEDAYSX 06:16 → JICU 15:30
PROVIDERS: ADMIT Orthopaedic Surgery Orthopaedic Surgery of the Spine; ATTEND Internal Medicine
PROC: 0SG3071 Fusion of Lumbosacral Joint with Autologous Tissue Substitute, Posterior Approach, Posterior Column, Open Approach (ICD-10-PCS; 2017-12-07)
PROC: 0SG10AJ Fusion of 2 or more Lumbar Vertebral Joints with Interbody Fusion Device, Posterior Approach, Anterior Column, Open Approach (ICD-10-PCS; 2017-12-07)
PROC: 0QB00ZZ Excision of Lumbar Vertebra, Open Approach (ICD-10-PCS; principal; 2017-12-07 08:00)
DX: M48.061 Spinal stenosis, lumbar region without neurogenic claudication (principal); M43.16 Spondylolisthesis, lumbar region; D62 Acute posthemorrhagic anemia; M40.209 Unspecified kyphosis, site unspecified; K59.00 Constipation, unspecified; D72.829 Elevated white blood cell count, unspecified; I10 Essential (primary) hypertension; E66.9 Obesity, unspecified; Z68.31 Body mass index [BMI] 31.0-31.9, adult
CPT/HCPCS: 36415; 74018-TC-FY; 76000-TC-FY; 80048; 83735; 84100; 85025; 85027; 86850; 86891; 86900; 86901; 88304-TC; 94010; 94760; 97116-GP; 97161-GP; J0131; J1644

== ENCOUNTER 2019-05-13 09:09 | Inpatient (IN) | payer OTHER ==
[2019-05-13] MEDS ORDERED: BENZOIN/ALOE VERA/STORAX/TOLU 58 ML BOTTLE ONE (12:37)
[2019-05-13] MEDS ORDERED: HEPARIN NA (PORCINE) 5,000 UNITS/ML 1ML VIAL ONE (12:37)
[2019-05-13] MEDS ORDERED: THROMBIN (BOVINE) 5,000 UNIT VIAL TP ONE (12:37)
[2019-05-13] MEDS ORDERED: PROPOFOL 20 ML ONE ×25 (12:58→17:23)
[2019-05-13] MEDS ORDERED: SUCCINYLCHOLINE CHLORIDE 200 MG/10 ML SYRINGE ONE (12:58)
[2019-05-13] MEDS ORDERED: ceFAZolin SODIUM 1 GM VIAL ONE ×2 (12:58→14:28)
[2019-05-13] MEDS ORDERED: fentaNYL CITRATE 250 MCG/5 ML VIAL ONE (12:58)
[2019-05-13] MEDS ORDERED: ROCURONIUM BROMIDE 50 MG/5 ML SYRINGE ONE (13:00)
[2019-05-13] MEDS ORDERED: MIDAZOLAM HCL 2 MG/2 ML SINGLE DOSE VIAL ONE ×2 (13:13)
[2019-05-13] MEDS ORDERED: BUPIVACAINE LIPOSOME/PF (EXPAREL) 266 MG/20 ML VIAL ONE (13:14)
[2019-05-13] MEDS ORDERED: VANCOMYCIN 1,000 MG VIAL (RESTRICTED TO ID ONLY) IVPB ONE ×3 (13:15→14:25)
[2019-05-13] MEDS ORDERED: ceFAZolin SODIUM 1 GM VIAL IVPB ONE ×3 (13:53→17:15)
[2019-05-13] MEDS ORDERED: TRANEXAMIC ACID 1000 MG/10 ML VIAL ONE (14:52)
[2019-05-13] MEDS ORDERED: DEXAMETHASONE SOD PHOSPHATE 4 MG/1 ML VIAL ONE (14:59)
[2019-05-13] MEDS ORDERED: ONDANSETRON 4 MG/2 ML VIAL ONE (15:02)
--- NOTE | 2019-05-13 17:28 | PN ---
Progress Note (short form) - Note Progress Note: 54M s/p removal of hardware L4-S1, inspection of fusion mass, L4-S1 revision laminectomies, L2-S1 posterior instrumented spinal fusion POD #0. -Admit to ICU post-op. -Pain control: NO NSAID's; patient received pre-op TLIP (paraspinal muscle) block w/Exparel; OK to use PROCESSING OPERATOR if needed; transition to oral analgesia post-op. -DVT PPx: -Mechanical only: ALRFED's, SCD's. -Chemical: None. -Incentive spirometry q15 min. -Advance diet as tolerated. -Alan care; d/c when ambulating. -Post-op Ancef x 3 doses. -PT/OT/Rehab, OOB. -WBAT B/L LE. -No bending, lifting (>5 lbs), or twisting for 9-12 months. -Care per ICU & medical hospitalist teams. -Discharge planning[facility]; call for appointment; . -Will follow. Naga Beck MD (Orthopaedic Surgery).
[2019-05-13] MEDS ORDERED: HYDROmorphone HCl 2 MG/ML VIAL ONE (18:06)
--- NOTE | 2019-05-13 19:10 | OP ---
Operative Note - Note: Operative Date: 05/13/19 Pre-Operative Diagnosis: Pseudarthrosis L4-L5. Lumbar radiculopathy Operation: 1. Removal of lumbar spine hardware. 2. Inspection of fusion mass. 3. Revision laminectomies L4-S1. 4. Posterior arthrodesis L2-S1. 5. Bone autograft. 6. Bone allograft. 7. Bone marrow harvest. 8. Complex wound closure (30cm) Findings: L4-L5 pseudarthrosis with loosening of L4 screws bilaterally Post-Operative Diagnosis: Same as Pre-op Surgeon: Naga Beck Metal Spray Operator: Tony Beck Anesthesiologist/MEDICAL BILLER/CODER: Evangelina Porter Anesthesia: General Specimens Removed: L4-S1 hardware Estimated Blood Loss (mls): 1,200 Drains & Tubes with Location: Superficial woundvac Blood Volume Replaced (mls): 500 (Cell Saver) Fluid Volume Replaced (mls): 4,000 (Crystalloid) Operative Report Dictated: Yes
[2019-05-13] MEDS ORDERED: ONDANSETRON 4 MG/2 ML VIAL IVPUSH PRN ×2 (19:12)
[2019-05-13] MEDS ORDERED: LACTATED RINGERS SOLUTION 1,000 ML IV SCH (19:15)
--- NOTE | 2019-05-13 22:44 | HP ---
Admitting History and Physical - Admission Chief Complaint: Chronic Back Pain History of Present Illness: This is a 54 y/o man with a PMHx of HTN, Chronic Back Pain, Chronic Knee Pain, OA, L4-S1 Laminectomy, Morbid Obesity. Admitted to ICU for elective surgery s/p Removal of Hardware L4-S1 inspection of fusion mass, L4-S1 revision laminectomies. L2-S1 Posterior Instrumented Spinal Fusion POD #0 History Source: Patient Limitations to Obtaining History: No Limitations - Past Medical History Cardiovascular: Yes: HTN Musculoskeletal: Yes: Chronic low back pain, Osteoarthritis, Other (Chronic Knee Pain) - Past Surgical History Past Surgical History: Yes: Arthrosocopy (92,13), Laminectomy Additional Past Surgical History: Left Hand Tendon Repair - Smoking History Smoking history: Never smoked Have you smoked in the past 12 months: No - Alcohol/Substance Use Hx Alcohol Use: No History of Substance Use: reports: None - Social History Usual Living Arrangement: Yes: With Spouse ADL: Independent History of Recent Travel: No Home Medications - Allergies Allergies/Adverse Reactions: Allergies Allergy/AdvReac Type Severity Reaction Status Date / Time No Known Allergies Allergy Verified 05/13/19 11:49 - Home Medications Home Medications: Ambulatory Orders Ferrous Sulfate [Feosol] 325 mg PO DAILY 12/04/17 Hydrochlorothiazide [Hctz -] 25 mg PO DAILY 12/04/17 Ibuprofen [Advil -] 400 mg PO PRN PRN 05/12/19 Family Medical History Family History: Unremarkable Review of Systems - Review of Systems Musculoskeletal: reports: Back Pain Physical Examination Vital Signs: Vital Signs Temperature 97.6 F 05/13/19 22:00 Pulse Rate 64 05/13/19 22:00 Respiratory Rate 16 05/13/19 22:00 Blood Pressure 146/87 05/13/19 22:00 O2 Sat by Pulse Oximetry (%) 100 05/13/19 22:00 Constitutional: Yes: Well Nourished, No Distress, Calm, Obese Eyes: Yes: WNL, Conjunctiva Clear, EOM Intact, PERRL HENT: Yes: WNL, Atraumatic, Normocephalic Neck: Yes: WNL, Supple, Trachea Midline Cardiovascular: Yes: Regular Rate and Rhythm, S1, S2 Respiratory: Yes: WNL, Regular, CTA Bilaterally Gastrointestinal: Yes: Soft, Abdomen, Obese, Hypoactive Bowel Sounds ...Rectal Exam: Yes: Deferred Renal/: Yes: Alan Present (yellow urine in tubing and drainage bag) Breast(s): Yes: WNL Extremities: Yes: WNL Edema: No Peripheral Pulses WNL: Yes Wound/Incision: Yes: Dressing Dry and Intact, Other (drain- moderate blood in tubing) Neurological: Yes: WNL, Alert, Oriented, Cran Nerves II-XII Intact ...Motor Strength: WNL Psychiatric: Yes: WNL, Alert, Oriented Problem List - Problems (1) Hypertension Code(s): I10 - ESSENTIAL (PRIMARY) HYPERTENSION (2) Lumbar spinal stenosis Code(s): M48.061 - SPINAL STENOSIS, LUMBAR REGION WITHOUT NEUROGENIC ESPERANZA Assessment/Plan This is a 54 y/o man with a PMHx of HTN, Chronic Back Pain, Chronic Knee Pain, OA, L4-S1 Laminectomy, Morbid Obesity. Admitted to ICU for elective surgery s/p Removal of Hardware L4-S1 inspection of fusion mass, L4-S1 revision laminectomies. L2-S1 Posterior Instrumented Spinal Fusion POD #0 Plan: Continue with ortho regimen Incentive Spirometry O2 On ASW/ASUW TACTICAL AIR CONTROLLER pump, per ortho Neurovascular checks PT eval Monitor BP Continue home meds Monitor CBC, BMP Will transfuse if Hgb < 7.0 Visit type - Emergency Visit Emergency Visit: No - New Patient This patient is new to me today: Yes Date on this admission: 05/13/19 - Critical Care Critical Care patient: Yes Total Critical Care Time (in minutes): 32 Critical Care Statement: The care of this patient involved high complexity decision making to prevent further life threatening deterioration of the patient 's condition and/or to evaluate & treat vital organ system(s) failure or risk of failure.
--- NOTE | 2019-05-13 22:46 | CONSULT ---
Consultation: REQUESTING PROVIDER: Dr. Beck CONSULT REQUEST: We have been asked to medically evaluate this patient for post- operative monitoring. HISTORY OF PRESENT ILLNESS: 54 yo M PMH pseudarthrosis L4-L5 with loosening of L4 screws bilaterally, lumbar radiculopathy, s/p removal of hardware L4-S1, inspection of fusion mass, L4-S1 revision laminectomies, L2-S1 posterior instrumented spinal fusion, bone autograft, bone allograft, bone marrow harvest, and complex wound closure (30 cm). Currently POD #0. Received vanco 1g at 1350, Ancef 2g at 1353, Ancef 1g at 1425, Ancef 1g at 1715, vanco 500 at 1425. Estimated Blood Loss (mls): 1,200 Drains & Tubes with Location: Superficial woundvac Blood Volume Replaced (mls): 500 (Cell Saver) Fluid Volume Replaced (mls): 4,000 Lactated Ringers Patient states that his pain is currently 5/10 and reports tenderness of his lower back. Declares that he would like some soup. REVIEW OF SYSTEMS: CONSTITUTIONAL: Absent: fever, chills, diaphoresis, generalized weakness, malaise, loss of appetite, weight change HEENT: Absent: rhinorrhea, nasal congestion, throat pain, throat swelling, difficulty swallowing, mouth swelling, ear pain, eye pain, visual changes CARDIOVASCULAR: Absent: chest pain, syncope, palpitations, irregular heart rate, lightheadedness, peripheral edema RESPIRATORY: Absent: cough, shortness of breath, dyspnea with exertion, orthopnea, wheezing, stridor, hemoptysis GASTROINTESTINAL: Absent: abdominal pain, abdominal distension, nausea, vomiting, diarrhea, constipation, melena, hematochezia GENITOURINARY: Absent: dysuria, frequency, urgency, hesitancy, hematuria, flank pain, genital pain MUSCULOSKELETAL: Absent: myalgia, arthralgia, joint swelling, back pain, neck pain SKIN: Absent: rash, itching, pallor HEMATOLOGIC/IMMUNOLOGIC: Absent: easy bleeding, easy bruising, lymphadenopathy, frequent infections ENDOCRINE: Absent: unexplained weight gain, unexplained weight loss, heat intolerance, cold intolerance NEUROLOGIC: Absent: headache, focal weakness or paresthesias, dizziness, unsteady gait, seizure, mental status changes, bladder or bowel incontinence PSYCHIATRIC: Absent: anxiety, depression, suicidal or homicidal ideation, hallucinations. PHYSICAL EXAMINATION Vital Signs - 24 hr 05/13/19 05/13/19 05/13/19 11:35 11:41 19:40 Temperature 98.7 F 98.1 F Pulse Rate 72 79 Respiratory 20 18 Rate Blood Pressure 158/78 145/81 O2 Sat by Pulse 98 98 Oximetry (%) 05/13/19 05/13/19 05/13/19 19:45 20:00 20:15 Temperature Pulse Rate 83 79 78 Respiratory 20 17 20 Rate Blood Pressure 146/84 145/78 141/82 O2 Sat by Pulse 100 100 100 Oximetry (%) 05/13/19 05/13/19 05/13/19 20:30 20:45 21:00 Temperature Pulse Rate 78 75 75 Respiratory 18 18 18 Rate Blood Pressure 146/83 148/81 152/86 O2 Sat by Pulse 100 100 100 Oximetry (%) 05/13/19 05/13/19 05/13/19 21:15 21:30 21:45 Temperature Pulse Rate 72 68 67 Respiratory 17 16 18 Rate Blood Pressure 150/87 146/87 149/86 O2 Sat by Pulse 100 100 100 Oximetry (%) 05/13/19 22:00 Temperature 97.6 F Pulse Rate 64 Respiratory 16 Rate Blood Pressure 146/87 O2 Sat by Pulse 100 Oximetry (%) GENERAL: Awake, alert, and fully oriented, in no acute distress HEAD: Normal with no signs of trauma. EYES: Pupils equal, round and reactive to light, extraocular movements intact, sclera anicteric, conjunctiva clear. No lid lag. EARS, NOSE, THROAT: Ears normal, nares patent, oropharynx clear without exudates NECK: Normal range of motion, supple LUNGS: Breath sounds equal, clear to auscultation bilaterally. No wheezes, and no crackles. No accessory muscle use. HEART: Regular rate and rhythm, normal S1 and S2 without murmur, rub or gallop. ABDOMEN: Soft, nontender, not distended, normoactive bowel sounds MUSCULOSKELETAL: Normal range of motion at all joints. No bony deformities or tenderness. No CVA tenderness. Superficial wound vac in place : Alan in place UPPER EXTREMITIES: 2+ pulses, warm, well-perfused. No cyanosis. No clubbing. Cap refill <2 seconds. No peripheral edema. LOWER EXTREMITIES: 2+ pulses, warm, well-perfused. No calf tenderness. No peripheral edema. NEUROLOGICAL: Cranial nerves II-XII intact. Normal speech PSYCHIATRIC: Cooperative. Good eye contact. Appropriate mood and affect. SKIN: Warm, dry Laboratory Results - last 24 hr 05/13/19 09:41 Blood Type A POSITIVE Antibody Screen Negative Active Medications Generic Name Dose Route Start Last Admin Trade Name Freq PRN Reason Stop Dose Admin Acetaminophen 1,000 mg 05/13/19 19:15 Ofirmev Injection - IVPB 05/14/19 11:16 Q8H [facility] Cefazolin Sodium/Dextrose 2 gm 05/13/19 23:00 Ancef 2 Gm Premixed Ivpb - IVPB 05/14/19 11:01 Q6H [facility] Fentanyl 50 mcg 05/13/19 19:12 Sublimaze Injection - IVPUSH [id number] PRN PAIN-PACU ORDER X 4 DOSES ONLY Hydrochlorothiazide 25 mg 05/14/19 10:00 Hctz - PO DAILY [facility] Lactated Ringer's 1,000 mls @ 125 mls/hr 05/13/19 19:15 Lactated Ringers Solution IV ASDIR [facility] Ondansetron HCl 4 mg 05/13/19 19:12 Zofran Injection IVPUSH Q6H PRN NAUSEA AND/OR VOMITING ASSESSMENT/PLAN: 54 yo M PMH pseudarthrosis L4-L5 with loosening of L4 screws bilaterally, lumbar radiculopathy, s/p removal of hardware L4-S1, inspection of fusion mass, L4-S1 revision laminectomies, L2-S1 posterior instrumented spinal fusion, bone autograft, bone allograft, bone marrow harvest, and complex wound closure (30 cm). Currently POD #0. Neuro: - hx pseudarthrosis L4-L5 - removal of hardware L4-S1, inspection of fusion mass, L4-S1 revision laminectomies, L2-S1 posterior instrumented spinal fusion, bone autograft, bone allograft, bone marrow harvest, and complex wound closure (30 cm) - Pain control: NO NSAID's - patient received pre-op TLIP (paraspinal muscle) block w/Exparel - BUTTON MAKER if needed - transition to oral analgesia post-op Respiratory: -Incentive spirometry q15 min Renal: - Alan inserted 05/13 ID: - post-op Ancef X 3 doses PPX: - Mechanical only: ALFRED's, SCD's. - Chemical: None - No bending, lifting (>5 lbs), or twisting for 9-12 months. - PT/OT/Rehab, OOB - WBAT b/l CLARENCE JASMINED: - LR @ 125 ccs/hr - advance diet as tolerated - regular diet planned for AM - Alan placed 05/13 - Superficial wound vac placed 05/13 Dispo: We will continue to follow the patient. Thank you for this consultative opportunity. - Discharge planning: f/u 7-10 days after discharge at [facility] office; call for appointment; . Visit type - Emergency Visit Emergency Visit: No - New Patient This patient is new to me today: Yes Date on this admission: 05/13/19 - Critical Care Critical Care patient: Yes Total Critical Care Time (in minutes): 45 Critical Care Statement: The care of this patient involved high complexity decision making to prevent further life threatening deterioration of the patient's condition and/or to evaluate & treat vital organ system(s) failure or risk of failure. ATTENDING PHYSICIAN STATEMENT I saw and evaluated the patient. I reviewed the resident's note and discussed the case with the resident. I agree with the resident's findings and plan as documented. SUBJECTIVE: OBJECTIVE: ASSESSMENT AND PLAN:
[2019-05-13] MEDS: ACETAMINOPHEN 1000 MG/100 ML VIAL (NON FORMULARY) IVPB SCH (23:13)
[2019-05-13] MEDS: LACTATED RINGERS SOLUTION 1,000 ML IV SCH (23:16)
[2019-05-13] MEDS: ceFAZolin 2 GRAM PREMIX BAG IVPB SCH (23:16)
[2019-05-14] MEDS: ACETAMINOPHEN 1000 MG/100 ML VIAL (NON FORMULARY) IVPB SCH ×2 (02:56→12:31)
--- NOTE | 2019-05-14 06:32 | OP ---
DATE OF OPERATION: 05/13/2019 SURGEON: Naga Beck MD CHIEF STEWARD/STEWARDESS: Tony Beck MD PREOPERATIVE DIAGNOSIS: Failed fusion, lumbar spine, with associated pseudoarthrosis. POSTOPERATIVE DIAGNOSIS: Failed fusion, lumbar spine, with associated pseudarthrosis. OPERATION PERFORMED: 1. Removal of hardware, L4, L5. S1. 2. Inspection of fusion mass. 3. Revision laminectomy, L4-L5. 4. Pedicle screw instrumentation, L2. L3. L4. L5. S1. 5. Bilateral left and right posterolateral arthrodesis, L2. L3. L4. L5, S1. 6. Bone marrow aspirate concentrate and allograft. 7. Intraoperative neuromonitoring and use of biplane fluoroscopy. 8. Complex wound closure, 30 cm. 9. Semi-difficult case because of patient's size; patient well over 300 pounds. ANESTHESIA: General. ANTIBIOTICS GIVEN: Ancef 3 g preoperative, 1.5 g of vancomycin. Intraoperatively, 1 g of Ancef given. BLOOD LOSS: Approximately 1200 mL. Cell Saver 700 mL given back to the patient. OPERATION DETAILS: The patient correctly identified and brought in the operating room. Timeout was called. Imaging was available for intraoperative evaluation. This included MRI imaging as well as CT scanning and x-rays. Patient was placed prone on the Dale table. All bony points and prominent areas padded appropriately. Protection to the eyes meticulously performed by the anesthesia team. Brachial plexus relaxed by appropriate positioning of the arms. Skin was prepped in the routine manner with Betadine scrub solution, wiped off with alcohol, DuraPrep applied. A window drape applied. The tissues were opened through the original wound and extended up 3 inches proximal to this. A long tedious dissection to expose the spine was performed. This was through the skin, subcutaneous tissue, down to the spinous processes of L2 and L3, and then along the level of the posterior elements, right down to the S1 level. Subperiosteal dissection performed from the spinous processes of the lamina over the facet joints to the tip of the transverse processes of L2-L3 performed, and this was then up by continuation of the soft tissue dissection of the hardware which was in situ at L4, L5. S1. The hardware was identified after removal of all fibrous tissue and bone off this. This was a tedious difficult dissection. Hemostasis was performed and achieved as best we could. The hardware was removed using the instrumentation designed appropriately for this. The original bone graft site was inspected and found to be fibroosseous in nature. The L4 screws were completely loose. The right S1 screw was loose. The fibrous tissue and remaining tissue on the theca was removed, resected using Leksell rongeurs, Kerrison up-cuts. Once this had been completed, the pedicles of L2 and L3 were identified. Each pedicle was drilled with a 4.-5 drill bit, and the screws at L2 and L3 were 6.5 x 45 mm screws. These were solidly fixed. The L3 screws which were completely loose on the right-hand side were a size 10.5 screw. At L4, we placed 9.5 x 45 mm screws. On the right solid fixation was achieved. On the left, not quite as solid, and as a result of this we elected to utilize our bone graft material, which consisted of bone marrow aspirate concentrate as well as the FIBRILLAR- expanded allograft. This was packed into the pedicle as well as into the body and then the screw inserted, providing much firmer fixation. This was the L4 screw level. The L5 screws were 8.5 screw on the right and a 7.5 screw on the left was inserted. The sacral screws were 10.5 x 40 mm screws. All screws were seated with excellent solid purchase accordingly. The screws were then reevaluated with using biplane fluoroscopy and evaluated to be well seated with no apparent complication. The screws were tested with intraoperative neuromonitoring and found to be well above the safe parameter level of 10 except in the right S1 screw measured 10 itself . The rest were all well above 15; in fact, the majority were at the level of 20 mA. Once this had been achieved, the screw heads were aligned appropriately, and a size 110-mm titanium celena bent to the lordotic curve of the spine was performed and fixed into the tulips with the appropriate caps. The caps were solidly fixed with the appropriate torque device. Once this had been performed, 60 mL of marrow from the left posterior ileum was harvested. The bone marrow aspirate was concentrated and mixed with the allograft bone providing a firm malleable bone graft material which was placed into the left and right interspinous process accordingly. Once the rods were fixed solidly into position and the posterolateral arthrodesis completed, the tissues were closed as follows. This was a complex wound closure in 4 layers: Muscle No. 1 Vicryl; fascia No. 1 Vicryl; subcutaneous No. 1 Vicryl; skin with audrey. Drainage: A 1/8-inch Hemovac placed subcutaneously. Overall Comment: Extremely difficult case because of the patient's size, requiring difficult retraction and the depth of the wound actually measured 12 cm posing a very challenging procedure in that we were on the thecal elements as well as the spinal bony elements accordingly. Patient was extricated out of the operating room and returned to the PACU and will be placed in the ICU postoperatively. No complications. MD MANDIE Mcgee/[id number]
[2019-05-14 07:16] LABS: HEMOGLOBIN 10.6 GM/dL (11.7-16.9); MCH 24.9 pg (25.7-33.7); MCHC 32.1 g/dl (32.0-35.9); MEAN CELL VOLUME 77.3 fl (80-96); MEAN PLT VOLUME 8.6 fl (7.5-11.1); PLATELET COUNT 222 K/MM3 (134-434); RBC 4.27 M/mm3 (4.00-5.60); RDW 14.9 % (11.9-15.9); WHITE BLOOD COUNT 15.3 K/mm3 (4.0-10.0)
[2019-05-14] MEDS: ceFAZolin 2 GRAM PREMIX BAG IVPB SCH ×2 (07:19→10:13)
[2019-05-14] MEDS: LACTATED RINGERS SOLUTION 1,000 ML IV SCH ×2 (07:20→17:19)
[2019-05-14 07:43] LABS: BLOOD UREA NITROGEN 13.2 mg/dL (7-18); CALCIUM 8.3 mg/dL (8.5-10.1); POTASSIUM 4.8 mmol/L (3.5-5.1)
[2019-05-14] MEDS ORDERED: MORPHINE SULFATE 2 MG/ML VIAL IVPUSH ONE (08:46)
--- NOTE | 2019-05-14 09:22 | PN ---
Progress Note (short form) - Note Progress Note: POD1 s/p removal lumbar hardware/revision laminectomy under GA with TLIP blocks. Doing well today - pain is mild/moderate. He is to receive IV morphine for breakthrough pain. VSS, no anesthetic issues/complications noted
[2019-05-14] MEDS: HYDROCHLOROTHIAZIDE 25 MG TABLET (FP) PO SCH (10:13)
--- NOTE | 2019-05-14 11:10 | PN ---
Teaching Attending Note Name of Resident: Opal Sheppard ATTENDING PHYSICIAN STATEMENT I saw and evaluated the patient. I reviewed the resident's note and discussed the case with the resident. I agree with the resident's findings and plan as documented. SUBJECTIVE: Pt seen and examined in the ICU. Pain relatively controlled. No shortness of breath or chest pain. No fevers or chills. OBJECTIVE: Vital Signs Period Temp Pulse Resp BP Sys/Ling Pulse Ox Last 24 Hr 97.6 F-98.7 F 14-86 16-76 139-158/50-87 98-100 Gen: NAD at rest Heart: RRR Lung: decreased breath sounds at the bases Abd: soft, nontender Ext: no edema Drain with serosanguinous fluid CBC, BMP 05/14/19 05:45 05/14/19 05:45 Active Medications Acetaminophen (Ofirmev Injection -) 1,000 mg IVPB Q8H [facility] Stop: 05/14/19 11:16 Last Admin: 05/14/19 02:56 Dose: 1,000 mg Fentanyl (Sublimaze Injection -) 50 mcg IVPUSH [id number] PRN PRN Reason: PAIN-PACU ORDER X 4 DOSES ONLY Hydrochlorothiazide (Hctz -) 25 mg PO DAILY [facility] Last Admin: 05/14/19 10:13 Dose: 25 mg Lactated Ringer's (Lactated Ringers Solution) 1,000 mls @ 125 mls/hr IV ASDIR [facility] Last Admin: 05/14/19 07:20 Dose: 125 mls/hr Morphine Sulfate (Morphine Sulfate) 2 mg IVPUSH Q4H [facility] Ondansetron HCl (Zofran Injection) 4 mg IVPUSH Q6H PRN PRN Reason: NAUSEA AND/OR VOMITING ASSESSMENT AND PLAN: Pseudarthrosis L4-L5 with radiculopathy s/p DANDRE/Revision Laminectomies/Posterior Arthrodesis L2-S1 HTN - pain control - incentive spirometry - IVF - PO as tolerated - DVT prophylaxis - disposition per surgery
--- NOTE | 2019-05-14 11:41 | PN ---
Progress Note (short form) - Note Progress Note: POD#1 ICU L2 to Si decompression and fusion In bed comfortable No leg pain minimal backpain Vitals all stable as per chart Wound dry drain in situ PLAN Continue as is Pain mx PT attempt to get out of bed. See tomorrow
[2019-05-14] MEDS ORDERED: FERROUS SO4 325 MG TABLET (FP) PO SCH (12:15)
[2019-05-14] MEDS ORDERED: ASCORBIC ACID 500 MG TABLET (FP) PO SCH (12:15)
[2019-05-14] MEDS: MORPHINE SULFATE 2 MG/ML VIAL IVPUSH SCH ×4 (12:37→23:17)
[2019-05-14] MEDS: POLYETHYLENE GLYCOL 3350 119 GM BTL PO SCH (12:38)
--- NOTE | 2019-05-14 13:08 | PN ---
Physical Exam: SUBJECTIVE: Patient seen and examined at bedside. Currently with some mild back pain post-op and requesting pain med. Denies hunter/d, f/c, chest pain, sob, abd pain. Denies flatus or BM. Tolerating PO diet. Alan still in place. Has still not gotten out of bed due to pain. OBJECTIVE: Vital Signs Period Temp Pulse Resp BP Sys/Ling Pulse Ox Last 24 Hr 97.6 F-98.1 F 64-96 14-20 139-152/50-87 98-100 GENERAL: Awake, alert, and fully oriented, in no acute distress. Pleasant male. HEENT: AT/NC. EOMI. MMM. NECK: Normal range of motion, supple LUNGS: Breath sounds equal, clear to auscultation bilaterally. No wheezes, and no crackles. No accessory muscle use. HEART: Regular rate and rhythm, normal S1 and S2 without murmur, rub or gallop. ABDOMEN: Obese. Soft, nontender, not distended, normoactive bowel sounds MUSCULOSKELETAL: Normal range of motion at all joints. No bony deformities or tenderness. No CVA tenderness. Superficial wound vac in place. Surgical dressing on back c/d/i : Alan in place UPPER EXTREMITIES: 2+ pulses, warm, well-perfused. No cyanosis. No clubbing. Cap refill <2 seconds. No peripheral edema. LOWER EXTREMITIES: 2+ pulses, warm, well-perfused. No calf tenderness. No peripheral edema. NEUROLOGICAL: Cranial nerves II-XII intact. Normal speech PSYCHIATRIC: Cooperative. Good eye contact. Appropriate mood and affect. SKIN: Warm, dry Laboratory Results - last 24 hr 05/14/19 05/14/19 05:45 05:45 WBC 15.3 H RBC 4.27 Hgb 10.6 L Hct 33.0 L MCV 77.3 L MCH 24.9 L MCHC 32.1 RDW 14.9 Plt Count 222 MPV 8.6 Sodium 139 Potassium 4.8 Chloride 106 Carbon Dioxide 27 Anion Gap 6 L BUN 13.2 Creatinine 1.0 Est GFR (CKD-EPI)AfAm 97.77 Est GFR (CKD-EPI)NonAf 84.35 Random Glucose 115 H Calcium 8.3 L Active Medications Generic Name Dose Route Start Last Admin Trade Name Freq PRN Reason Stop Dose Admin Ascorbic Acid 500 mg 05/14/19 12:15 Vitamin C - PO DAILY [facility] Docusate Sodium 100 mg 05/14/19 12:15 Colace - PO DAILY [facility] Fentanyl 50 mcg 05/13/19 19:12 Sublimaze Injection - IVPUSH [id number] PRN PAIN-PACU ORDER X 4 DOSES ONLY Ferrous Sulfate 325 mg 05/14/19 12:15 Feosol - PO DAILY [facility] Hydrochlorothiazide 25 mg 05/14/19 10:00 05/14/19 10:13 Hctz - PO 25 mg DAILY [facility] Administration Lactated Ringer's 1,000 mls @ 125 mls/hr 05/13/19 19:15 05/14/19 07:20 Lactated Ringers Solution IV 125 mls/hr ASDIR [facility] Administration Morphine Sulfate 2 mg 05/14/19 11:00 05/14/19 12:37 Morphine Sulfate IVPUSH Not Given Q4H [facility] Ondansetron HCl 4 mg 05/13/19 19:12 Zofran Injection IVPUSH Q6H PRN NAUSEA AND/OR VOMITING Polyethylene Glycol 17 gm 05/14/19 12:15 05/14/19 12:38 Miralax (For Daily Use) - PO Not Given DAILY [facility] Senna 1 tab 05/14/19 22:00 Senna - PO HS [facility] ASSESSMENT/PLAN: 54 yo M PMH pseudarthrosis L4-L5 with loosening of L4 screws bilaterally, lumbar radiculopathy, s/p removal of hardware L4-S1, inspection of fusion mass, L4-S1 revision laminectomies, L2-S1 posterior instrumented spinal fusion, bone autograft, bone allograft, bone marrow harvest, and complex wound closure (30 cm). Currently POD #0. Neuro Hx of Pseudarthrosis L4-L5 S/P Removal of hardware L4-S1, inspection of fusion mass, L4-S1 revision laminectomies, L2-S1 posterior instrumented spinal fusion, bone autograft, bone allograft, bone marrow harvest, and complex wound closure (30 cm) -Pain control: NO NSAIDs; Morphine 2 Q4H -patient received pre-op TLIP (paraspinal muscle) block w/ Exparel -transition to oral analgesia post-op -Per ortho, No bending, lifting (>5 lbs), or twisting for 9-12 months. -PT/OT/Rehab, OOB -WBAT b/l LE Respiratory Stable with no acute issues. -Incentive spirometry q15 min CV HTN -HD stable; cont to monitor Renal Stable with no acute issues. -Alan in place, can d/c once oob and ambulating -BUN/Cr 13.2/1 ID Stable, with no signs of infection. -Post-op Ancef X 3 doses given Prophylaxis DVT: SCD/TEDs FENLTD: -LR @ 125 ccs/hr -Regular diet -Alan placed 05/13 -Superficial wound vac placed 05/13 Dispo: We will continue to follow the patient. Thank you for this consultative opportunity. -Cont ICU level of care -When ready discharge, will need f/u 7-10 days after discharge at [facility] office; call for appointment; . Visit type - Emergency Visit Emergency Visit: Yes ED Registration Date: 05/13/19 Care time: The patient presented to the Emergency Department on the above date and was hospitalized for further evaluation of their emergent condition. - New Patient This patient is new to me today: Yes Date on this admission: 05/14/19 - Critical Care Critical Care patient: Yes Total Critical Care Time (in minutes): 36 Critical Care Statement: The care of this patient involved high complexity decision making to prevent further life threatening deterioration of the patien t's condition and/or to evaluate & treat vital organ system(s) failure or risk of failure. ATTENDING PHYSICIAN STATEMENT I saw and evaluated the patient. I reviewed the resident's note and discussed the case with the resident. I agree with the resident's findings and plan as documented. SUBJECTIVE: OBJECTIVE: ASSESSMENT AND PLAN:
[2019-05-14] MEDS: DOCUSATE SODIUM 100 MG CAPSULE (FP) PO SCH (13:17)
--- NOTE | 2019-05-14 18:48 | PN ---
Physical Exam: 54 M h/o HTN, obesity, Chronic Back Pain, Chronic Knee Pain, OA, L4-S1 Laminectomy, Morbid Obesity. Admitted to ICU for elective surgery s/p Removal of Hardware L4-S1 inspection of fusion mass, L4-S1 revision laminectomies. L2- S1 Posterior Instrumented Spinal Fusion POD #1. PT evaluation for OOB to chair, pain controlled with morphine and dilaudid pushes PRN. PE VSS GA lying in bed, comfortable, AAox3, speaking in full sentences HEENT NC/AT, EOMI, MMM Chest CTAB, no crackles or wheezing CVS S1, S2+, RRR, no m/r/g Abd Soft, NT, obese, BS+ Ext No LE edema, no calf tenderness Vital Signs - 24 hr 05/13/19 05/13/19 05/13/19 19:40 19:45 20:00 Temperature 98.1 F Pulse Rate 79 83 79 Respiratory 18 20 17 Rate Blood Pressure 145/81 146/84 145/78 O2 Sat by Pulse 98 100 100 Oximetry (%) 05/13/19 05/13/19 05/13/19 20:15 20:30 20:45 Temperature Pulse Rate 78 78 75 Respiratory 20 18 18 Rate Blood Pressure 141/82 146/83 148/81 O2 Sat by Pulse 100 100 100 Oximetry (%) 05/13/19 05/13/19 05/13/19 21:00 21:15 21:30 Temperature Pulse Rate 75 72 68 Respiratory 18 17 16 Rate Blood Pressure 152/86 150/87 146/87 O2 Sat by Pulse 100 100 100 Oximetry (%) 05/13/19 05/13/19 05/14/19 21:45 22:00 02:00 Temperature 97.6 F 98.1 F Pulse Rate 67 64 79 Respiratory 18 20 20 Rate Blood Pressure 149/86 146/87 142/81 O2 Sat by Pulse 100 100 Oximetry (%) 05/14/19 05/14/19 05/14/19 06:00 08:00 08:13 Temperature Pulse Rate 74 86 Respiratory 20 20 Rate Blood Pressure 148/50 L 139/77 O2 Sat by Pulse 99 Oximetry (%) 05/14/19 05/14/19 05/14/19 09:00 10:00 12:00 Temperature 98.1 F Pulse Rate 76 96 H Respiratory 14 17 Rate Blood Pressure 146/81 140/72 O2 Sat by Pulse 98 Oximetry (%) 05/14/19 05/14/19 05/14/19 14:00 16:00 17:22 Temperature 98.0 F Pulse Rate 98 H 82 Respiratory 27 H 20 Rate Blood Pressure 116/99 148/83 O2 Sat by Pulse 100 Oximetry (%) 05/14/19 17:54 Temperature 99.6 F Pulse Rate 84 Respiratory 20 Rate Blood Pressure 140/82 O2 Sat by Pulse Oximetry (%) Laboratory Results - last 24 hr 05/14/19 05/14/19 05:45 05:45 WBC 15.3 H RBC 4.27 Hgb 10.6 L Hct 33.0 L MCV 77.3 L MCH 24.9 L MCHC 32.1 RDW 14.9 Plt Count 222 MPV 8.6 Sodium 139 Potassium 4.8 Chloride 106 Carbon Dioxide 27 Anion Gap 6 L BUN 13.2 Creatinine 1.0 Est GFR (CKD-EPI)AfAm 97.77 Est GFR (CKD-EPI)NonAf 84.35 Random Glucose 115 H Calcium 8.3 L Home Medications Medication Instructions Recorded Ferrous Sulfate [Feosol] 325 mg PO DAILY 12/04/17 Hydrochlorothiazide [Hctz -] 25 mg PO DAILY 12/04/17 Ibuprofen [Advil -] 400 mg PO PRN PRN 05/12/19 Current Medications Generic Name Dose Route Start Last Admin Trade Name Freq PRN Reason Stop Dose Admin Ascorbic Acid 500 mg 05/14/19 12:15 05/14/19 13:17 Vitamin C - PO 500 mg DAILY [facility] Administration Docusate Sodium 100 mg 05/14/19 12:15 05/14/19 13:17 Colace - PO 100 mg DAILY [facility] Administration Fentanyl 50 mcg 05/13/19 19:12 Sublimaze Injection - IVPUSH [id number] PRN PAIN-PACU ORDER X 4 DOSES ONLY Ferrous Sulfate 325 mg 05/14/19 12:15 05/14/19 13:17 Feosol - PO 325 mg DAILY [facility] Administration Hydrochlorothiazide 25 mg 05/14/19 10:00 05/14/19 10:13 Hctz - PO 25 mg DAILY [facility] Administration Lactated Ringer's 1,000 mls @ 125 mls/hr 05/13/19 19:15 05/14/19 17:19 Lactated Ringers Solution IV 125 mls/hr ASDIR [facility] Administration Morphine Sulfate 2 mg 05/14/19 11:00 05/14/19 15:11 Morphine Sulfate IVPUSH 2 mg Q4H [facility] Administration Ondansetron HCl 4 mg 05/13/19 19:12 Zofran Injection IVPUSH Q6H PRN NAUSEA AND/OR VOMITING Polyethylene Glycol 17 gm 05/14/19 12:15 05/14/19 12:38 Miralax (For Daily Use) - PO Not Given DAILY [facility] Senna 1 tab 05/14/19 22:00 Senna - PO HS [facility] A/P: 54 y/o man with a PMHx of HTN, Chronic Back Pain, Chronic Knee Pain, OA, L4-S1 Laminectomy, Morbid Obesity. Admitted to ICU for elective surgery s/p Removal of Hardware L4-S1 inspection of fusion mass, L4-S1 revision laminectomies. L2- S1 Posterior Instrumented Spinal Fusion POD #1. Tolerated surgery well. L4-S1 revision laminectomy and posterior spinal fusion POD #1, no fevers, VSS Incentive Spirometry, HOB elevation, pulmonary toileting O2 PRn for >90% O2 sat Morphine Q4-6H PRN, Dilaudid pushes for breakthrough pain Neurovascular checks PT eval for OOB to chair HTN restart home BP meds as tolerated DVT ppx: SCD/ALFRED for now in view of current drainage of blood from surgery site FEN: PO hydration, daily chem, Na restricted diet ICU monitoring Visit type - Emergency Visit Emergency Visit: Yes ED Registration Date: 05/13/19 Care time: The patient presented to the Emergency Department on the above date and was hospitalized for further evaluation of their emergent condition. - New Patient This patient is new to me today: No - Critical Care Critical Care patient: Yes Total Critical Care Time (in minutes): 40 Critical Care Statement: The care of this patient involved high complexity decision making to prevent further life threatening deterioration of the patient 's condition and/or to evaluate & treat vital organ system(s) failure or risk of failure. - Discharge Referral Referred to [facility] No
[2019-05-14] MEDS: ASCORBIC ACID 500 MG TABLET (FP) PO SCH (21:33)
[2019-05-14] MEDS: FERROUS SO4 325 MG TABLET (FP) PO SCH (21:33)
[2019-05-14] MEDS: SENNOSIDES 8.6MG TABLET (FP) PO SCH (21:34)
[2019-05-15] MEDS: MORPHINE SULFATE 2 MG/ML VIAL IVPUSH SCH ×2 (06:32→07:49)
[2019-05-15 07:23] LABS: BASO % 0.2 % (0-2.0); EOS % 0.1 % (0-4.5); HEMATOCRIT 31.5 % (35.4-49); HEMOGLOBIN 10.2 GM/dL (11.7-16.9); LYMPH % 13.1 % (8-40); MCH 24.8 pg (25.7-33.7); MCHC 32.3 g/dl (32.0-35.9); MEAN CELL VOLUME 76.6 fl (80-96); MEAN PLT VOLUME 8.8 fl (7.5-11.1); NEUT % 72.6 % (42.8-82.8); PLATELET COUNT 209 K/MM3 (134-434); RBC 4.11 M/mm3 (4.00-5.60); RDW 14.8 % (11.9-15.9); WHITE BLOOD COUNT 13.4 K/mm3 (4.0-10.0)
[2019-05-15 07:55] LABS: ALBUMIN 2.7 g/dl (3.4-5.0); BLOOD UREA NITROGEN 14.8 mg/dL (7-18); CREATININE 1.1 mg/dL (0.55-1.3); PHOSPHOROUS 3.2 mg/dL (2.5-4.9); TOT PROT 5.6 g/dl (6.4-8.2)
[2019-05-15] MEDS ORDERED: MORPHINE SULFATE 2 MG/ML VIAL IVPUSH PRN (08:25)
[2019-05-15 08:27] LABS: BILIRUBIN,TOTAL 0.3 mg/dL (0.2-1)
--- NOTE | 2019-05-15 08:44 | PN ---
Physical Exam: SUBJECTIVE: Patient seen and examined this AM. No acute overnight events. Remains in bed, has not been OOB to chair. Currently pain is 8/10. Denies passing flatus or having BM. Tolerating PO Intake. Alan in place. Using Incentive spirometer. No associated weakness, numbness, tingling. OBJECTIVE: Vital Signs Period Temp Pulse Resp BP Sys/Ling Pulse Ox Last 24 Hr 98.0 F-99.6 F 76-98 14-27 116-162/54-99 98-100 GENERAL: A&Ox3, NAD HEAD: NCAT EYES: PERRL, EOMI ENT: Moist mucous membranes NECK: Supple LUNGS: CTAB, no wheezes, no crackles HEART: Regular rate and rhythm, S1, S2 without murmur ABDOMEN: Obese, Soft, nontender, nondistended, + bowel sounds, no guarding EXTREMITIES: No edema. NEUROLOGICAL: Cranial nerves II through XII grossly intact. Normal speech, gait not observed. Muscle strength 5/5 throughout, gross sensation intact globally BACK: Dressing c/d/i with drain present as bedside full of red blood SKIN: Warm, dry Laboratory Results - last 24 hr 05/14/19 05/15/19 05/15/19 18:48 05:30 05:30 WBC 13.4 H RBC 4.11 Hgb 10.2 L Hct 31.5 L MCV 76.6 L MCH 24.8 L MCHC 32.3 RDW 14.8 Plt Count 209 MPV 8.8 Absolute Neuts (auto) 9.7 H Neutrophils % 72.6 Lymphocytes % 13.1 D Monocytes % 14.0 H Eosinophils % 0.1 Basophils % 0.2 Nucleated RBC % 0 Sodium 137 Potassium 4.0 Chloride 101 Carbon Dioxide 30 Anion Gap 6 L BUN 14.8 Creatinine 1.1 Est GFR (CKD-EPI)AfAm 87.13 Est GFR (CKD-EPI)NonAf 75.17 Random Glucose 107 H Calcium 8.0 L Phosphorus 3.2 Magnesium 2.0 Iron 19 L TIBC 186 L Iron Saturation 10 L Unsaturated IBC 167 L Ferritin 120.2 AST 25 ALT 19 Alkaline Phosphatase 77 Total Protein 5.6 L Albumin 2.7 L Active Medications Ascorbic Acid (Vitamin C -) 500 mg PO BID [facility] Last Admin: 05/14/19 21:33 Dose: 500 mg Docusate Sodium (Colace -) 100 mg PO DAILY [facility] Last Admin: 05/14/19 13:17 Dose: 100 mg Fentanyl (Sublimaze Injection -) 50 mcg IVPUSH [id number] PRN PRN Reason: PAIN-PACU ORDER X 4 DOSES ONLY Ferrous Sulfate (Feosol -) 325 mg PO BID [facility] Last Admin: 05/14/19 21:33 Dose: 325 mg Hydrochlorothiazide (Hctz -) 25 mg PO DAILY [facility] Last Admin: 05/14/19 10:13 Dose: 25 mg Morphine Sulfate (Morphine Sulfate) 2 mg IVPUSH Q4H PRN PRN Reason: PAIN LEVEL 6-10 Ondansetron HCl (Zofran Injection) 4 mg IVPUSH Q6H PRN PRN Reason: NAUSEA AND/OR VOMITING Polyethylene Glycol (Miralax (For Daily Use) -) 17 gm PO DAILY [facility] Last Admin: 05/14/19 12:38 Dose: Not Given Senna (Senna -) 1 tab PO HS [facility] Last Admin: 05/14/19 21:34 Dose: Not Given ASSESSMENT/PLAN: 54 y/o M PMH of PMHx of HTN, Chronic Back Pain, Chronic Knee Pain, OA, L4-S1 Laminectomy (with loosening of L4 screws bilaterally), lumbar radiculopathy, Morbid Obesity, admitted to ICU s/p L-Spine Sx on 05/13. #Neuro S/P Removal of hardware L4-S1, inspection of fusion mass, L4-S1 revision laminectomies, L2-S1 posterior instrumented spinal fusion, bone autograft, bone allograft, bone marrow harvest, and complex wound closure (30 cm) Hx of Pseudarthrosis L4-L5 -VSS, H&H Stable however febrile this AM, Leukocytosis improving -Analgesia via Morphine, received pre-op TLIP (paraspinal muscle) block w/ Exparel; Avoid NSAIDs -Per ortho, No bending, lifting (>5 lbs), or twisting for 9-12 months. -PT/OT/Rehab, OOB -WBAT b/l LE #Cardio Hx of HTN -Stable, No active issues #Pulm -Stable, No active issues -Incentive spirometry -CXR #GI -Stable, No active issues -Continue Bowel regimen -Antiemesis via Ondansetron #Renal -Stable, No active issues -Alan in place, d/c once oob and ambulating #PPx -DVT: SCDs #FENLTD: -PO Hydration -Replete lytes PRN -Regular diet -Alan placed 05/13 -Superficial wound vac placed 05/13 Dispo: Monitor in ICU, Further Dispo as per Sx Visit type - Emergency Visit Emergency Visit: No - New Patient This patient is new to me today: Yes Date on this admission: 05/15/19 - Critical Care Critical Care patient: No ATTENDING PHYSICIAN STATEMENT I saw and evaluated the patient. I reviewed the resident's note and discussed the case with the resident. I agree with the resident's findings and plan as documented. SUBJECTIVE: OBJECTIVE: ASSESSMENT AND PLAN:
[2019-05-15] MEDS ORDERED: ACETAMINOPHEN 325 MG TABLET (FP) PO PRN (08:53)
[2019-05-15] MEDS: DOCUSATE SODIUM 100 MG CAPSULE (FP) PO SCH (10:00)
[2019-05-15] MEDS: HYDROCHLOROTHIAZIDE 25 MG TABLET (FP) PO SCH (10:00)
[2019-05-15] MEDS: FERROUS SO4 325 MG TABLET (FP) PO SCH ×2 (10:00→21:05)
[2019-05-15] MEDS: ASCORBIC ACID 500 MG TABLET (FP) PO SCH ×2 (10:00→21:05)
[2019-05-15] MEDS: POLYETHYLENE GLYCOL 3350 119 GM BTL PO SCH (10:01)
--- NOTE | 2019-05-15 10:22 | PN ---
Teaching Attending Note Name of Resident: Brandi Ryan ATTENDING PHYSICIAN STATEMENT I saw and evaluated the patient. I reviewed the resident's note and discussed the case with the resident. I agree with the resident's findings and plan as documented. SUBJECTIVE: Pt seen and examined in the ICU. Pain relatively controlled. Low grade temp this AM. No nausea. No shortness of breath or chest pain. Tolerating PO, + flatus. OBJECTIVE: Vital Signs Period Temp Pulse Resp BP Sys/Ling Pulse Ox Last 24 Hr 98.0 F-100.5 F 82-98 17-27 116-162/54-99 100-100 Intake & Output 05/12/19 05/13/19 05/14/19 05/15/19 23:59 23:59 23:59 23:59 Intake Total 5150 3360 240 Output Total 1970 2220 1160 Balance 3180 1140 -920 Weight 79.379 kg 124.738 kg 139.253 kg Gen: NAD at rest Heart: RRR Lung: decreased breath sounds at the bases Abd: soft, nontender Ext: no edema CBC, BMP 05/15/19 05:30 05/15/19 05:30 Active Medications Acetaminophen (Tylenol -) 650 mg PO Q6H PRN PRN Reason: PAIN LEVEL 1-5 Ascorbic Acid (Vitamin C -) 500 mg PO BID [facility] Last Admin: 05/15/19 10:00 Dose: 500 mg Docusate Sodium (Colace -) 100 mg PO DAILY [facility] Last Admin: 05/15/19 10:00 Dose: 100 mg Fentanyl (Sublimaze Injection -) 50 mcg IVPUSH [id number] PRN PRN Reason: PAIN-PACU ORDER X 4 DOSES ONLY Ferrous Sulfate (Feosol -) 325 mg PO BID [facility] Last Admin: 05/15/19 10:00 Dose: 325 mg Hydrochlorothiazide (Hctz -) 25 mg PO DAILY [facility] Last Admin: 05/15/19 10:00 Dose: 25 mg Morphine Sulfate (Morphine Sulfate) 2 mg IVPUSH Q4H PRN PRN Reason: PAIN LEVEL 6-10 Ondansetron HCl (Zofran Injection) 4 mg IVPUSH Q6H PRN PRN Reason: NAUSEA AND/OR VOMITING Polyethylene Glycol (Miralax (For Daily Use) -) 17 gm PO DAILY [facility] Last Admin: 05/15/19 10:01 Dose: 17 gm Senna (Senna -) 1 tab PO HS [facility] Last Admin: 05/14/19 21:34 Dose: Not Given ASSESSMENT AND PLAN: Pseudarthrosis L4-L5 with radiculopathy s/p DANDRE/Revision Laminectomies/Posterior Arthrodesis L2-S1 HTN - pain control - incentive spirometry - monitor drain output - PO as tolerated - DVT prophylaxis - disposition per surgery
[2019-05-15 10:48] VITALS: BMI 39.4
--- NOTE | 2019-05-15 18:49 | PN ---
Physical Exam: 54 M h/o HTN, obesity, Chronic Back Pain, Chronic Knee Pain, OA, L4-S1 Laminectomy, Morbid Obesity. Admitted to ICU for elective surgery s/p Removal of Hardware L4-S1 inspection of fusion mass, L4-S1 revision laminectomies. L2- S1 Posterior Instrumented Spinal Fusion POD #1. PT evaluation for OOB to chair, pain controlled with morphine and dilaudid pushes PRN. Encourage OOB to chair, wound drain still draining blood cont. to monitor. PE VSS GA lying in bed, comfortable, AAox3, speaking in full sentences HEENT NC/AT, EOMI, MMM Chest CTAB, no crackles or wheezing CVS S1, S2+, RRR, no m/r/g Abd Soft, NT, obese, BS+ Ext No LE edema, no calf tenderness Vital Signs - 24 hr 05/14/19 05/14/19 05/15/19 20:54 23:00 02:00 Temperature 99 F Pulse Rate 90 92 H Respiratory 20 20 20 Rate Blood Pressure 162/79 152/76 O2 Sat by Pulse 100 Oximetry (%) 05/15/19 05/15/19 05/15/19 04:00 06:00 08:00 Temperature 99 F 100.5 F H Pulse Rate 97 H 89 89 Respiratory 20 20 22 H Rate Blood Pressure 145/82 154/54 L 146/81 O2 Sat by Pulse Oximetry (%) 05/15/19 05/15/19 05/15/19 09:00 09:59 10:00 Temperature 97.7 F Pulse Rate 85 Respiratory 22 H 20 Rate Blood Pressure 137/88 O2 Sat by Pulse 100 Oximetry (%) 05/15/19 05/15/19 05/15/19 12:00 14:00 16:00 Temperature 97.8 F 98.1 F Pulse Rate 86 84 85 Respiratory 22 H 23 H Rate Blood Pressure 158/86 165/82 136/88 O2 Sat by Pulse Oximetry (%) 05/15/19 18:25 Temperature Pulse Rate 89 Respiratory Rate Blood Pressure 159/83 O2 Sat by Pulse Oximetry (%) Laboratory Results - last 24 hr 05/14/19 05/15/19 05/15/19 18:48 05:30 05:30 WBC 13.4 H RBC 4.11 Hgb 10.2 L Hct 31.5 L MCV 76.6 L MCH 24.8 L MCHC 32.3 RDW 14.8 Plt Count 209 MPV 8.8 Absolute Neuts (auto) 9.7 H Neutrophils % 72.6 Lymphocytes % 13.1 D Monocytes % 14.0 H Eosinophils % 0.1 Basophils % 0.2 Nucleated RBC % 0 Sodium 137 Potassium 4.0 Chloride 101 Carbon Dioxide 30 Anion Gap 6 L BUN 14.8 Creatinine 1.1 Est GFR (CKD-EPI)AfAm 87.13 Est GFR (CKD-EPI)NonAf 75.17 Random Glucose 107 H Calcium 8.0 L Phosphorus 3.2 Magnesium 2.0 Iron 19 L TIBC 186 L Iron Saturation 10 L Unsaturated IBC 167 L Ferritin 120.2 Total Bilirubin 0.3 AST 25 ALT 19 Alkaline Phosphatase 77 Total Protein 5.6 L Albumin 2.7 L Current Medications Generic Name Dose Route Start Last Admin Trade Name Freq PRN Reason Stop Dose Admin Acetaminophen 650 mg 05/15/19 08:53 Tylenol - PO Q6H PRN PAIN LEVEL 1-5 Ascorbic Acid 500 mg 05/14/19 22:00 05/15/19 10:00 Vitamin C - PO 500 mg BID ESTEFANIA Administration Docusate Sodium 100 mg 05/14/19 12:15 05/15/19 10:00 Colace - PO 100 mg DAILY ESTEFANIA Administration Fentanyl 50 mcg 05/13/19 19:12 Sublimaze Injection - IVPUSH [id number] PRN PAIN-PACU ORDER X 4 DOSES ONLY Ferrous Sulfate 325 mg 05/14/19 22:00 05/15/19 10:00 Feosol - PO 325 mg BID ESTEFANIA Administration Hydrochlorothiazide 25 mg 05/14/19 10:00 05/15/19 10:00 Hctz - PO 25 mg DAILY ESTEFANIA Administration Morphine Sulfate 2 mg 05/15/19 08:25 Morphine Sulfate IVPUSH Q4H PRN PAIN LEVEL 6-10 Ondansetron HCl 4 mg 05/13/19 19:12 Zofran Injection IVPUSH Q6H PRN NAUSEA AND/OR VOMITING Polyethylene Glycol 17 gm 05/14/19 12:15 05/15/19 10:01 Miralax (For Daily Use) - PO 17 gm DAILY ESTEFANIA Administration Senna 1 tab 05/14/19 22:00 05/14/19 21:34 Senna - PO Not Given HS ESTEFANIA A/P: 54 y/o man with a PMHx of HTN, Chronic Back Pain, Chronic Knee Pain, OA, L4-S1 Laminectomy, Morbid Obesity. Admitted to ICU for elective surgery s/p Removal of Hardware L4-S1 inspection of fusion mass, L4-S1 revision laminectomies. L2- S1 Posterior Instrumented Spinal Fusion POD #1. Tolerated surgery well. Wound continuing to drain blood. L4-S1 revision laminectomy and posterior spinal fusion POD #2, no fevers, VSS Incentive Spirometry, HOB elevation, pulmonary toileting O2 PRn for >90% O2 sat Morphine Q4-6H PRN, Dilaudid pushes for breakthrough pain Neurovascular checks PT eval for OOB to chair HTN restart home BP meds as tolerated DVT ppx: SCD/ALFRED for now in view of current drainage of blood from surgery site FEN: PO hydration, daily chem, Na restricted diet ICU monitoring Visit type - Emergency Visit Emergency Visit: Yes ED Registration Date: 05/13/19 Care time: The patient presented to the Emergency Department on the above date and was hospitalized for further evaluation of their emergent condition. - New Patient This patient is new to me today: No - Critical Care Critical Care patient: Yes Total Critical Care Time (in minutes): 35 Critical Care Statement: The care of this patient involved high complexity decision making to prevent further life threatening deterioration of the patient 's condition and/or to evaluate & treat vital organ system(s) failure or risk of failure. - Discharge Referral Referred to [facility] Med [facility].C[facility] No
[2019-05-15] MEDS: SENNOSIDES 8.6MG TABLET (FP) PO SCH (21:05)
[2019-05-16 06:34] LABS: BASO % 0.5 % (0-2.0); EOS % 0.8 % (0-4.5); HEMATOCRIT 32.5 % (35.4-49); HEMOGLOBIN 10.4 GM/dL (11.7-16.9); LYMPH % 15.2 % (8-40); MCH 24.7 pg (25.7-33.7); MCHC 32.1 g/dl (32.0-35.9); MEAN PLT VOLUME 8.6 fl (7.5-11.1); MONO % 12.4 % (3.8-10.2); NEUT % 71.1 % (42.8-82.8); PLATELET COUNT 215 K/MM3 (134-434); RBC 4.23 M/mm3 (4.00-5.60); RDW 14.8 % (11.9-15.9); WHITE BLOOD COUNT 14.3 K/mm3 (4.0-10.0)
[2019-05-16 07:26] LABS: ALBUMIN 2.6 g/dl (3.4-5.0); BILIRUBIN,TOTAL 0.5 mg/dL (0.2-1); BLOOD UREA NITROGEN 12.2 mg/dL (7-18); CALCIUM 8.5 mg/dL (8.5-10.1); MAGNESIUM 2.1 mg/dL (1.8-2.4); PHOSPHOROUS 3.5 mg/dL (2.5-4.9); POTASSIUM 4.1 mmol/L (3.5-5.1); TOT PROT 6.2 g/dl (6.4-8.2)
[2019-05-16] MEDS ORDERED: ACETAMINOPHEN 1000 MG/100 ML VIAL (NON FORMULARY) IVPB ONE (07:30)
[2019-05-16] MEDS: DOCUSATE SODIUM 100 MG CAPSULE (FP) PO SCH (09:05)
[2019-05-16] MEDS: FERROUS SO4 325 MG TABLET (FP) PO SCH ×2 (09:06→21:14)
[2019-05-16] MEDS: HYDROCHLOROTHIAZIDE 25 MG TABLET (FP) PO SCH (09:06)
[2019-05-16] MEDS: POLYETHYLENE GLYCOL 3350 119 GM BTL PO SCH (09:07)
[2019-05-16] MEDS: ASCORBIC ACID 500 MG TABLET (FP) PO SCH ×2 (09:07→21:14)
--- NOTE | 2019-05-16 11:58 | PN ---
Teaching Attending Note Name of Resident: Lisy Eden ATTENDING PHYSICIAN STATEMENT I saw and evaluated the patient. I reviewed the resident's note and discussed the case with the resident. I agree with the resident's findings and plan as documented. SUBJECTIVE: Pt seen and examined in the ICU. Pain relatively controlled. No fevers or chills. No shortness of breath or chest pain. OBJECTIVE: Vital Signs Period Temp Pulse Resp BP Sys/Ling Pulse Ox Last 24 Hr 97.8 F-98.1 F 81-89 16-23 136-165/72-94 100-100 Intake & Output 05/13/19 05/14/19 05/15/19 05/16/19 23:59 23:59 23:59 23:59 Intake Total 5150 3360 840 Output Total 1970 2220 2520 650 Balance 3180 1140 -1680 -650 Weight 124.738 kg 139.253 kg 140.115 kg Gen: NAD at rest Heart: RRR Lung: decreased breath sounds at the bases Abd: soft, nontender Ext: no edema CBC, BMP 05/16/19 06:00 05/16/19 06:05 Active Medications Acetaminophen (Tylenol -) 650 mg PO Q6H PRN PRN Reason: PAIN LEVEL 1-5 Ascorbic Acid (Vitamin C -) 500 mg PO BID [facility] Last Admin: 05/16/19 09:07 Dose: 500 mg Docusate Sodium (Colace -) 100 mg PO DAILY [facility] Last Admin: 05/16/19 09:05 Dose: 100 mg Fentanyl (Sublimaze Injection -) 50 mcg IVPUSH [id number] PRN PRN Reason: PAIN-PACU ORDER X 4 DOSES ONLY Ferrous Sulfate (Feosol -) 325 mg PO BID [facility] Last Admin: 05/16/19 09:06 Dose: 325 mg Hydrochlorothiazide (Hctz -) 25 mg PO DAILY [facility] Last Admin: 05/16/19 09:06 Dose: 25 mg Morphine Sulfate (Morphine Sulfate) 2 mg IVPUSH Q4H PRN PRN Reason: PAIN LEVEL 6-10 Ondansetron HCl (Zofran Injection) 4 mg IVPUSH Q6H PRN PRN Reason: NAUSEA AND/OR VOMITING Polyethylene Glycol (Miralax (For Daily Use) -) 17 gm PO DAILY [facility] Last Admin: 05/16/19 09:07 Dose: 17 gm Senna (Senna -) 1 tab PO HS [facility] Last Admin: 05/15/19 21:05 Dose: 1 tab ASSESSMENT AND PLAN: Pseudarthrosis L4-L5 with radiculopathy s/p DANDRE/Revision Laminectomies/Posterior Arthrodesis L2-S1 HTN - pain control - incentive spirometry - monitor drain output - PO as tolerated - DVT prophylaxis - disposition per surgery
--- NOTE | 2019-05-16 15:36 | PN ---
Physical Exam: SUBJECTIVE: Patient seen and examined in the morning. No acute events overnight. Patient complains of back pain, but denies chest pain, abdominal pain, nausea, vomiting, diarrhea. Has only passed flatus as of this morning. Only out of bed to chair so far. OBJECTIVE: Vital Signs Period Temp Pulse Resp BP Sys/Ling Pulse Ox Last 24 Hr 97.4 F-98.1 F 81-89 16-23 136-163/72-94 100-100 GENERAL: Awake, alert, and fully oriented, in no acute distress. EYES: EOMI NECK: Normal range of motion, supple LUNGS: Breath sounds equal, clear to auscultation bilaterally. No wheezes, and no crackles. No accessory muscle use. HEART: Regular rate and rhythm, normal S1 and S2 without murmur, rub or gallop. ABDOMEN: Obese. Soft, nontender, not distended, normoactive bowel sounds MUSCULOSKELETAL: Normal range of motion at all joints. No bony deformities or tenderness. No CVA tenderness. Superficial wound vac in place. Surgical dressing on back c/d/i LOWER EXTREMITIES: 2+ pulses, warm, well-perfused. No calf tenderness. No peripheral edema. NEUROLOGICAL: Cranial nerves II-XII intact. Normal speech PSYCHIATRIC: Cooperative. Good eye contact. Appropriate mood and affect. SKIN: Warm, dry Laboratory Results - last 24 hr 05/16/19 05/16/19 06:00 06:05 WBC 14.3 H RBC 4.23 Hgb 10.4 L Hct 32.5 L MCV 77.0 L MCH 24.7 L MCHC 32.1 RDW 14.8 Plt Count 215 MPV 8.6 Absolute Neuts (auto) 10.2 H Neutrophils % 71.1 Lymphocytes % 15.2 Monocytes % 12.4 H Eosinophils % 0.8 D Basophils % 0.5 Nucleated RBC % 0 Sodium 135 L Potassium 4.1 Chloride 98 Carbon Dioxide 31 Anion Gap 6 L BUN 12.2 Creatinine 1.0 Est GFR (CKD-EPI)AfAm 97.77 Est GFR (CKD-EPI)NonAf 84.35 Random Glucose 117 H Calcium 8.5 Phosphorus 3.5 Magnesium 2.1 Total Bilirubin 0.5 AST 24 ALT 21 Alkaline Phosphatase 81 Total Protein 6.2 L Albumin 2.6 L Active Medications Generic Name Dose Route Start Last Admin Trade Name Freq PRN Reason Stop Dose Admin Acetaminophen 650 mg 05/15/19 08:53 Tylenol - PO Q6H PRN PAIN LEVEL 1-5 Ascorbic Acid 500 mg 05/14/19 22:00 05/16/19 09:07 Vitamin C - PO 500 mg BID ESTEFANIA Administration Docusate Sodium 100 mg 05/14/19 12:15 05/16/19 09:05 Colace - PO 100 mg DAILY ESTEFANIA Administration Fentanyl 50 mcg 05/13/19 19:12 Sublimaze Injection - IVPUSH [id number] PRN PAIN-PACU ORDER X 4 DOSES ONLY Ferrous Sulfate 325 mg 05/14/19 22:00 05/16/19 09:06 Feosol - PO 325 mg BID ESTEFANIA Administration Hydrochlorothiazide 25 mg 05/14/19 10:00 05/16/19 09:06 Hctz - PO 25 mg DAILY ESTEFANIA Administration Morphine Sulfate 2 mg 05/15/19 08:25 Morphine Sulfate IVPUSH Q4H PRN PAIN LEVEL 6-10 Ondansetron HCl 4 mg 05/13/19 19:12 Zofran Injection IVPUSH Q6H PRN NAUSEA AND/OR VOMITING Polyethylene Glycol 17 gm 05/14/19 12:15 05/16/19 09:07 Miralax (For Daily Use) - PO 17 gm DAILY ESTEFANIA Administration Senna 1 tab 05/14/19 22:00 05/15/19 21:05 Senna - PO 1 tab HS ESTEFANIA Administration ASSESSMENT/PLAN: 54 M PMH of HTN, Chronic back pain, chronic knee pain, OA, L4-S1 Laminectomy (with loosening of L4 screws bilaterally), lumbar radiculopathy, morbid obesity, admitted to ICU s/p Lumbar spine surgery on 05/13. Neuro -POD #3. S/P Removal of hardware L4-S1, inspection of fusion mass, L4-S1 revision laminectomies, L2-S1 posterior instrumented spinal fusion, bone autograft, bone allograft, bone marrow harvest and complex wound closure. -Vitals stable, AAOx3 -Continue to monitor Cardio -Hx of HTN -Stable, continue monitoring Pulmonary -Stable, no active issues -Encourage Incentive spirometryu GI -Stable, No active issues -Continue bowel regimen, has only passed flatus so far. -Encourage movement out of the bed Renal -Stable, ocampo removed -Continue to monitor MSK -Analgesia via Morphine, received pre-op TLIP (paraspinal muscle) block w/ Exparel; Avoid NSAIDs -Per ortho, No bending, lifting (>5 lbs), or twisting for 9-12 months. -PT/OT/Rehab, OOB -WBAT b/l LE DVT: SCDs F: PO hydration E: Monitor CMP N: Regular diet Lines: Superficial wound vac placed 05/13. Dispo: Monitor in ICU, Further Dispo as per Surgical team Visit type - Emergency Visit Emergency Visit: Yes ED Registration Date: 05/13/19 Care time: The patient presented to the Emergency Department on the above date and was hospitalized for further evaluation of their emergent condition. - New Patient This patient is new to me today: Yes Date on this admission: 05/16/19 - Critical Care Critical Care patient: Yes Total Critical Care Time (in minutes): 35 Critical Care Statement: The care of this patient involved high complexity decision making to prevent further life threatening deterioration of the patient's condition and/or to evaluate & treat vital organ system(s) failure or risk of failure. ATTENDING PHYSICIAN STATEMENT I saw and evaluated the patient. I reviewed the resident's note and discussed the case with the resident. I agree with the resident's findings and plan as documented. SUBJECTIVE: OBJECTIVE: ASSESSMENT AND PLAN:
--- NOTE | 2019-05-16 18:23 | PN ---
Physical Exam: 54 M h/o HTN, obesity, Chronic Back Pain, Chronic Knee Pain, OA, L4-S1 Laminectomy, Morbid Obesity. Admitted to ICU for elective surgery s/p Removal of Hardware L4-S1 inspection of fusion mass, L4-S1 revision laminectomies. L2- S1 Posterior Instrumented Spinal Fusion POD #3. Patient doing well, denies pain , OOB to chair, passing flatus no BM yet will escalate BM regimen, VSS, afebrile. PE GA lying in bed, comfortable, AAox3, speaking in full sentences HEENT NC/AT, EOMI, MMM Chest CTAB, no crackles or wheezing CVS S1, S2+, RRR, no m/r/g Abd Soft, NT, obese, BS+ Ext No LE edema, no calf tenderness Vital Signs - 24 hr 05/15/19 05/15/19 05/16/19 18:25 21:00 06:00 Temperature 98.1 F Pulse Rate 89 86 Respiratory 19 Rate Blood Pressure 159/83 154/94 O2 Sat by Pulse 100 Oximetry (%) 05/16/19 05/16/19 05/16/19 08:00 08:10 10:00 Temperature Pulse Rate 81 84 Respiratory 16 16 18 Rate Blood Pressure 154/76 148/72 O2 Sat by Pulse 100 Oximetry (%) 05/16/19 05/16/19 05/16/19 12:00 14:00 16:00 Temperature 97.4 F L Pulse Rate 88 89 87 Respiratory 18 18 18 Rate Blood Pressure 153/87 163/78 152/82 O2 Sat by Pulse Oximetry (%) Laboratory Results - last 24 hr 05/16/19 05/16/19 06:00 06:05 WBC 14.3 H RBC 4.23 Hgb 10.4 L Hct 32.5 L MCV 77.0 L MCH 24.7 L MCHC 32.1 RDW 14.8 Plt Count 215 MPV 8.6 Absolute Neuts (auto) 10.2 H Neutrophils % 71.1 Lymphocytes % 15.2 Monocytes % 12.4 H Eosinophils % 0.8 D Basophils % 0.5 Nucleated RBC % 0 Sodium 135 L Potassium 4.1 Chloride 98 Carbon Dioxide 31 Anion Gap 6 L BUN 12.2 Creatinine 1.0 Est GFR (CKD-EPI)AfAm 97.77 Est GFR (CKD-EPI)NonAf 84.35 Random Glucose 117 H Calcium 8.5 Phosphorus 3.5 Magnesium 2.1 Total Bilirubin 0.5 AST 24 ALT 21 Alkaline Phosphatase 81 Total Protein 6.2 L Albumin 2.6 L Current Medications Generic Name Dose Route Start Last Admin Trade Name Freq PRN Reason Stop Dose Admin Acetaminophen 650 mg 05/15/19 08:53 Tylenol - PO Q6H PRN PAIN LEVEL 1-5 Ascorbic Acid 500 mg 05/14/19 22:00 05/16/19 09:07 Vitamin C - PO 500 mg BID ESTEFANIA Administration Docusate Sodium 100 mg 05/14/19 12:15 05/16/19 09:05 Colace - PO 100 mg DAILY ESTEFANIA Administration Fentanyl 50 mcg 05/13/19 19:12 Sublimaze Injection - IVPUSH [id number] PRN PAIN-PACU ORDER X 4 DOSES ONLY Ferrous Sulfate 325 mg 05/14/19 22:00 05/16/19 09:06 Feosol - PO 325 mg BID ESTEFANIA Administration Hydrochlorothiazide 25 mg 05/14/19 10:00 05/16/19 09:06 Hctz - PO 25 mg DAILY ESTEFANIA Administration Morphine Sulfate 2 mg 05/15/19 08:25 Morphine Sulfate IVPUSH Q4H PRN PAIN LEVEL 6-10 Ondansetron HCl 4 mg 05/13/19 19:12 Zofran Injection IVPUSH Q6H PRN NAUSEA AND/OR VOMITING Polyethylene Glycol 17 gm 05/14/19 12:15 05/16/19 09:07 Miralax (For Daily Use) - PO 17 gm DAILY ESTEFANIA Administration Senna 1 tab 05/14/19 22:00 05/15/19 21:05 Senna - PO 1 tab HS ESTEFANIA Administration A/P: 54 y/o man with a PMHx of HTN, Chronic Back Pain, Chronic Knee Pain, OA, L4-S1 Laminectomy, Morbid Obesity. Admitted to ICU for elective surgery s/p Removal of Hardware L4-S1 inspection of fusion mass, L4-S1 revision laminectomies. L2- S1 Posterior Instrumented Spinal Fusion POD #3. Tolerated surgery well. Wound continuing to drain blood. L4-S1 revision laminectomy and posterior spinal fusion POD #3, no fevers, VSS Incentive Spirometry, HOB elevation, pulmonary toileting, encourage movement and out of bed Aggressive bowel regimen to achieve 1-2BM/day O2 PRn for >90% O2 sat Morphine Q4-6H PRN, Dilaudid pushes for breakthrough pain Neurovascular checks continue with physical therapy Neurosurgery follow up for dispo recommendations HTN on HCTZ 25mg daily, not controlled add Norvasc 5mg daily DVT ppx: SCD/ALFRED for now in view of current drainage of blood from surgery site FEN: PO hydration, daily chem, Na restricted diet ICU monitoring Visit type - Emergency Visit Emergency Visit: Yes ED Registration Date: 05/13/19 Care time: The patient presented to the Emergency Department on the above date and was hospitalized for further evaluation of their emergent condition. - New Patient This patient is new to me today: No - Critical Care Critical Care patient: Yes Total Critical Care Time (in minutes): 35 Critical Care Statement: The care of this patient involved high complexity decision making to prevent further life threatening deterioration of the patient 's condition and/or to evaluate & treat vital organ system(s) failure or risk of failure. - Discharge Referral Referred to [facility] No
[2019-05-16] MEDS: amLODIPine BESYLATE 5 MG TABLET (FP) PO SCH (18:47)
[2019-05-16] MEDS: SENNOSIDES 8.6MG TABLET (FP) PO SCH (21:14)
[2019-05-17 07:04] LABS: BASO % 0.6 % (0-2.0); HEMATOCRIT 30.2 % (35.4-49); HEMOGLOBIN 9.7 GM/dL (11.7-16.9); LYMPH % 17.7 % (8-40); MCHC 32.3 g/dl (32.0-35.9); MEAN CELL VOLUME 77.4 fl (80-96); MEAN PLT VOLUME 8.9 fl (7.5-11.1); MONO % 12.8 % (3.8-10.2); NEUT % 66.9 % (42.8-82.8); PLATELET COUNT 243 K/MM3 (134-434); RDW 14.4 % (11.9-15.9); WHITE BLOOD COUNT 10.6 K/mm3 (4.0-10.0)
[2019-05-17 07:27] LABS: ALBUMIN 2.5 g/dl (3.4-5.0); BILIRUBIN,TOTAL 0.7 mg/dL (0.2-1); BLOOD UREA NITROGEN 13.6 mg/dL (7-18); CALCIUM 8.6 mg/dL (8.5-10.1); CREATININE 0.9 mg/dL (0.55-1.3); MAGNESIUM 2.1 mg/dL (1.8-2.4); PHOSPHOROUS 3.8 mg/dL (2.5-4.9); POTASSIUM 4.1 mmol/L (3.5-5.1); TOT PROT 5.8 g/dl (6.4-8.2)
[2019-05-17] MEDS ORDERED: MINERAL OIL ENEMA 133 ML ENEMA PR ONE (08:54)
[2019-05-17] MEDS ORDERED: MAGNESIUM HYDROX 2400MG/30ML ORAL SUSPENSION 30 ML CUP PO ONE (09:12)
[2019-05-17] MEDS ORDERED: SODIUM PHOSPHATE/NA BIPHOS 133 ML ENEMA PR ONE (09:17)
[2019-05-17] MEDS: DOCUSATE SODIUM 100 MG CAPSULE (FP) PO SCH (11:43)
[2019-05-17] MEDS: HYDROCHLOROTHIAZIDE 25 MG TABLET (FP) PO SCH (11:43)
[2019-05-17] MEDS: FERROUS SO4 325 MG TABLET (FP) PO SCH ×2 (11:44→21:25)
[2019-05-17] MEDS: ASCORBIC ACID 500 MG TABLET (FP) PO SCH ×2 (11:44→21:26)
[2019-05-17] MEDS: amLODIPine BESYLATE 5 MG TABLET (FP) PO SCH (11:45)
[2019-05-17] MEDS: POLYETHYLENE GLYCOL 3350 119 GM BTL PO SCH ×2 (11:45→21:26)
--- NOTE | 2019-05-17 12:23 | PN ---
Teaching Attending Note Name of Resident: Lisy Eden ATTENDING PHYSICIAN STATEMENT I saw and evaluated the patient. I reviewed the resident's note and discussed the case with the resident. I agree with the resident's findings and plan as documented. SUBJECTIVE: Pt seen and examined in the ICU. Pain controlled. Still no BM, feels bloated. No fevers or chills. OBJECTIVE: Vital Signs Period Temp Pulse Resp BP Sys/Ling Pulse Ox Last 24 Hr 98.3 F-98.5 F 86-95 18-20 104-170/78-89 100-100 Intake & Output 05/14/19 05/15/19 05/16/19 05/17/19 23:59 23:59 23:59 23:59 Intake Total 3360 840 400 Output Total 2220 2217 2725 684 Balance 1140 -1680 -2215 -656 Weight 139.253 kg 140.115 kg 139.979 kg Gen: NAD at rest Heart: RRR Lung: decreased breath sounds at the bases Abd: soft, nontender Ext: no edema Drain sanguinous CBC, BMP 05/17/19 06:00 05/17/19 06:00 Active Medications Acetaminophen (Tylenol -) 650 mg PO Q6H PRN PRN Reason: PAIN LEVEL 1-5 Amlodipine Besylate (Norvasc -) 5 mg PO DAILY [facility] Last Admin: 05/17/19 11:45 Dose: 5 mg Ascorbic Acid (Vitamin C -) 500 mg PO BID [facility] Last Admin: 05/17/19 11:44 Dose: 500 mg Docusate Sodium (Colace -) 100 mg PO DAILY [facility] Last Admin: 05/17/19 11:43 Dose: 100 mg Fentanyl (Sublimaze Injection -) 50 mcg IVPUSH [id number] PRN PRN Reason: PAIN-PACU ORDER X 4 DOSES ONLY Ferrous Sulfate (Feosol -) 325 mg PO BID [facility] Last Admin: 05/17/19 11:44 Dose: 325 mg Hydrochlorothiazide (Hctz -) 25 mg PO DAILY [facility] Last Admin: 05/17/19 11:43 Dose: 25 mg Morphine Sulfate (Morphine Sulfate) 2 mg IVPUSH Q4H PRN PRN Reason: PAIN LEVEL 6-10 Ondansetron HCl (Zofran Injection) 4 mg IVPUSH Q6H PRN PRN Reason: NAUSEA AND/OR VOMITING Polyethylene Glycol (Miralax (For Daily Use) -) 17 gm PO BID [facility] Last Admin: 05/17/19 11:45 Dose: 17 grams Senna (Senna -) 1 tab PO HS [facility] Last Admin: 05/16/19 21:14 Dose: 1 tab ASSESSMENT AND PLAN: Pseudarthrosis L4-L5 with radiculopathy s/p DANDRE/Revision Laminectomies/Posterior Arthrodesis L2-S1 HTN Anemia - pain control - incentive spirometry - monitor drain output - monitor CBC - PO as tolerated - DVT prophylaxis - can monitor on floor
--- NOTE | 2019-05-17 14:39 | PN ---
Physical Exam: SUBJECTIVE: Patient seen and examined in the morning. POD#4. No acute events overnight. Patient has only passed flatus, is tolerating diet. No bowel movements. No complaints of chest pain, shortness of breath, abdominal pain, nausea, vomiting, diarrhea. OBJECTIVE: Vital Signs Period Temp Pulse Resp BP Sys/Ling Pulse Ox Last 24 Hr 98.2 F-98.5 F 86-95 18-20 104-170/82-89 100-100 GENERAL: Awake, alert, and fully oriented, in no acute distress. EYES: EOMI NECK: Normal range of motion, supple LUNGS: Breath sounds equal, clear to auscultation bilaterally. No wheezes, and no crackles. No accessory muscle use. HEART: Regular rate and rhythm, normal S1 and S2 without murmur, rub or gallop. ABDOMEN: Obese. Soft, nontender, not distended, normoactive bowel sounds MUSCULOSKELETAL: Normal range of motion at all joints. No bony deformities or tenderness. No CVA tenderness. Surgical dressing in place. LOWER EXTREMITIES: 2+ pulses, warm, well-perfused. No calf tenderness. No peripheral edema. NEUROLOGICAL: Cranial nerves II-XII intact. Normal speech PSYCHIATRIC: Cooperative. Good eye contact. Appropriate mood and affect. SKIN: Warm, dry Laboratory Results - last 24 hr 05/17/19 05/17/19 06:00 06:00 WBC 10.6 H RBC 3.90 L Hgb 9.7 L Hct 30.2 L MCV 77.4 L MCH 25.0 L MCHC 32.3 RDW 14.4 Plt Count 243 MPV 8.9 Absolute Neuts (auto) 7.1 Neutrophils % 66.9 Lymphocytes % 17.7 Monocytes % 12.8 H Eosinophils % 2.0 D Basophils % 0.6 Nucleated RBC % 0 Sodium 135 L Potassium 4.1 Chloride 97 L Carbon Dioxide 33 H Anion Gap 5 L BUN 13.6 Creatinine 0.9 Est GFR (CKD-EPI)AfAm 111.05 Est GFR (CKD-EPI)NonAf 95.81 Random Glucose 108 H Calcium 8.6 Phosphorus 3.8 Magnesium 2.1 Total Bilirubin 0.7 AST 41 H ALT 36 Alkaline Phosphatase 91 Total Protein 5.8 L Albumin 2.5 L Active Medications Generic Name Dose Route Start Last Admin Trade Name Freq PRN Reason Stop Dose Admin Acetaminophen 650 mg 05/15/19 08:53 Tylenol - PO Q6H PRN PAIN LEVEL 1-5 Amlodipine Besylate 5 mg 05/16/19 18:30 05/17/19 11:45 Norvasc - PO 5 mg DAILY ESTEFANIA Administration Ascorbic Acid 500 mg 05/14/19 22:00 05/17/19 11:44 Vitamin C - PO 500 mg BID ESTEFANIA Administration Docusate Sodium 100 mg 05/14/19 12:15 05/17/19 11:43 Colace - PO 100 mg DAILY ESTEFANIA Administration Fentanyl 50 mcg 05/13/19 19:12 Sublimaze Injection - IVPUSH [id number] PRN PAIN-PACU ORDER X 4 DOSES ONLY Ferrous Sulfate 325 mg 05/14/19 22:00 05/17/19 11:44 Feosol - PO 325 mg BID ESTEFANIA Administration Hydrochlorothiazide 25 mg 05/14/19 10:00 05/17/19 11:43 Hctz - PO 25 mg DAILY ESTEFANIA Administration Morphine Sulfate 2 mg 05/15/19 08:25 Morphine Sulfate IVPUSH Q4H PRN PAIN LEVEL 6-10 Ondansetron HCl 4 mg 05/13/19 19:12 Zofran Injection IVPUSH Q6H PRN NAUSEA AND/OR VOMITING Polyethylene Glycol 17 gm 05/17/19 10:00 05/17/19 11:45 Miralax (For Daily Use) - PO 17 grams BID ESETFANIA Administration Senna 1 tab 05/14/19 22:00 05/16/19 21:14 Senna - PO 1 tab HS ESTEFANIA Administration ASSESSMENT/PLAN: 54 M PMH of HTN, Chronic back pain, chronic knee pain, OA, L4-S1 Laminectomy (with loosening of L4 screws bilaterally), lumbar radiculopathy, morbid obesity, admitted to ICU s/p Lumbar spine surgery on 05/13. Neuro -POD #4. S/P Removal of hardware L4-S1, inspection of fusion mass, L4-S1 revision laminectomies, L2-S1 posterior instrumented spinal fusion, bone autograft, bone allograft, bone marrow harvest and complex wound closure. -Vitals stable, AAOx3 -Continue to monitor Cardio -Hx of HTN -Stable, continue monitoring Pulmonary -Stable, no active issues -Encourage Incentive spirometry GI -Stable, No active issues -Continue bowel regimen, has only passed flatus so far. -Given enema and MOM in addition to bowel regimen. -Encourage movement out of the bed Renal -Stable, ocampo removed -Continue to monitor MSK -Analgesia via tylenol, received pre-op TLIP (paraspinal muscle) block w/ Exparel; Avoid NSAIDs -Per ortho, No bending, lifting (>5 lbs), or twisting for 9-12 months. -PT/OT/Rehab, OOB -WBAT b/l LE DVT: SCDs F: PO hydration E: Monitor CMP N: Regular diet Lines: Peripheral IVs Dispo: Transfer to med/surg Visit type - Emergency Visit Emergency Visit: Yes ED Registration Date: 05/13/19 Care time: The patient presented to the Emergency Department on the above date and was hospitalized for further evaluation of their emergent condition. - New Patient This patient is new to me today: No - Critical Care Critical Care patient: Yes Total Critical Care Time (in minutes): 45 Critical Care Statement: The care of this patient involved high complexity decision making to prevent further life threatening deterioration of the patient's condition and/or to evaluate & treat vital organ system(s) failure or risk of failure. ATTENDING PHYSICIAN STATEMENT I saw and evaluated the patient. I reviewed the resident's note and discussed the case with the resident. I agree with the resident's findings and plan as documented. SUBJECTIVE: OBJECTIVE: ASSESSMENT AND PLAN:
--- NOTE | 2019-05-17 14:39 | PN ---
Progress Note (short form) - Note Progress Note: POD#4 Pt without any complaints of CP/SOB. Passing flatus and no BM. Ambulating on his own, oob to chair with assistance. Vital Signs Period Temp Pulse Resp BP Sys/Ling Pulse Ox Last 24 Hr 98.2 F-98.5 F 86-95 18-20 104-170/82-89 100-100 Hemovac: dark blood 55/30ml GEN: A&0x3, NAD ABD: soft, non-distended, non-tender LE: 5/5 dorsi/plantar flexion b/l. no calf tenderness or swelling noted b/l. Back: drain removed with the tip intact. Some bleeding at the site so the dressing was changed an hour after drain removal. Inc c/d/i with audrey. No erythema or drainage. No active bleeding. 4x4 gauze/tegaderm applied to cover the length of the incision. CBC, BMP 02/04/ 06:00 02/07/31 06:00 A/P: 54 yo male s/p 1. Removal of lumbar spine hardware. 2. Inspection of fusion mass. 3. Revision laminectomies L4-S1. 4. Posterior arthrodesis L2-S1. 5. Bone autograft. 6. Bone allograft. 7. Bone marrow harvest. 8. Complex wound closure (30cm) Plan for transfer to the floor Continue oob/ambualte with PT DVT ppx with oob/ambulate/SCDs regular diet Stool softners/enema for constipation from narcotics D/w Dr. Beck
--- NOTE | 2019-05-17 15:02 | PN ---
Physical Exam: SUBJECTIVE: Patient seen and examined. Offers no complaints. Passing gas. no BM OBJECTIVE: Vital Signs Period Temp Pulse Resp BP Sys/Ling Pulse Ox Last 24 Hr 98.2 F-98.5 F 86-95 18-20 104-170/82-89 100-100 GENERAL: a/o x 3, in NAD HEAD: Normal with no signs of trauma. EYES: PERRL, extraocular movements intact ENT: oropharynx clear without exudates, moist mucous membranes. NECK: supple. LUNGS: Breath sounds equal, clear to auscultation bilaterally HEART: Regular rate and rhythm, S1, S2 without murmur, rub or gallop. ABDOMEN: Soft, nontender, nondistended, normoactive bowel sounds EXTREMITIES: 2+ pulses, warm, well-perfused, no edema. Laboratory Results - last 24 hr 05/17/19 05/17/19 06:00 06:00 WBC 10.6 H RBC 3.90 L Hgb 9.7 L Hct 30.2 L MCV 77.4 L MCH 25.0 L MCHC 32.3 RDW 14.4 Plt Count 243 MPV 8.9 Absolute Neuts (auto) 7.1 Neutrophils % 66.9 Lymphocytes % 17.7 Monocytes % 12.8 H Eosinophils % 2.0 D Basophils % 0.6 Nucleated RBC % 0 Sodium 135 L Potassium 4.1 Chloride 97 L Carbon Dioxide 33 H Anion Gap 5 L BUN 13.6 Creatinine 0.9 Est GFR (CKD-EPI)AfAm 111.05 Est GFR (CKD-EPI)NonAf 95.81 Random Glucose 108 H Calcium 8.6 Phosphorus 3.8 Magnesium 2.1 Total Bilirubin 0.7 AST 41 H ALT 36 Alkaline Phosphatase 91 Total Protein 5.8 L Albumin 2.5 L Active Medications Generic Name Dose Route Start Last Admin Trade Name Freq PRN Reason Stop Dose Admin Acetaminophen 650 mg 05/15/19 08:53 Tylenol - PO Q6H PRN PAIN LEVEL 1-5 Amlodipine Besylate 5 mg 05/16/19 18:30 05/17/19 11:45 Norvasc - PO 5 mg DAILY ESTEFANIA Administration Ascorbic Acid 500 mg 05/14/19 22:00 05/17/19 11:44 Vitamin C - PO 500 mg BID ESTEFANIA Administration Docusate Sodium 100 mg 05/14/19 12:15 05/17/19 11:43 Colace - PO 100 mg DAILY ESTEFANIA Administration Fentanyl 50 mcg 05/13/19 19:12 Sublimaze Injection - IVPUSH [id number] PRN PAIN-PACU ORDER X 4 DOSES ONLY Ferrous Sulfate 325 mg 05/14/19 22:00 05/17/19 11:44 Feosol - PO 325 mg BID ESTEFANIA Administration Hydrochlorothiazide 25 mg 05/14/19 10:00 05/17/19 11:43 Hctz - PO 25 mg DAILY ESTEFANIA Administration Morphine Sulfate 2 mg 05/15/19 08:25 Morphine Sulfate IVPUSH Q4H PRN PAIN LEVEL 6-10 Ondansetron HCl 4 mg 05/13/19 19:12 Zofran Injection IVPUSH Q6H PRN NAUSEA AND/OR VOMITING Polyethylene Glycol 17 gm 05/17/19 10:00 05/17/19 11:45 Miralax (For Daily Use) - PO 17 grams BID ESTEFANIA Administration Senna 1 tab 05/14/19 22:00 05/16/19 21:14 Senna - PO 1 tab HS ESTEFANIA Administration ASSESSMENT/PLAN: 54 y/o man with a PMHx of HTN, Chronic Back Pain, Chronic Knee Pain, OA, L4-S1 Laminectomy, Morbid Obesity. Admitted to ICU for elective surgery s/p Removal of Hardware L4-S1 inspection of fusion mass, L4-S1 revision laminectomies. L2- S1 Posterior Instrumented Spinal Fusion POD #3. Tolerated surgery well. Wound continuing to drain blood. #L4-S1 revision laminectomy and posterior spinal fusion POD #4 -afebrile -vital signs stable -incentive spirometer -encourage movement out of bed. -Aggressive bowel regimen to achieve 1-2BM/day -O2 PRn for >90% O2 sat -Morphine Q4-6H PRN, Dilaudid pushes for breakthrough pain -Neurovascular checks -continue with physical therapy -Neurosurgery follow up for dispo recommendations #HTN -on HCTZ 25mg daily, not controlled -cont. Norvasc 5mg daily #DVT ppx -SCD/ALFRED for now in view of current drainage of blood from surgery site #FEN -PO hydration -daily chem -Na restricted diet up for transfer to [facility]-surge from ICU Visit type - Emergency Visit Emergency Visit: Yes ED Registration Date: 05/13/19 Care time: The patient presented to the Emergency Department on the above date and was hospitalized for further evaluation of their emergent condition. - New Patient This patient is new to me today: Yes Date on this admission: 05/17/19 - Critical Care Critical Care patient: No ATTENDING PHYSICIAN STATEMENT I saw and evaluated the patient. I reviewed the resident's note and discussed the case with the resident. I agree with the resident's findings and plan as documented. SUBJECTIVE: OBJECTIVE: ASSESSMENT AND PLAN:
--- NOTE | 2019-05-17 15:52 | PATH ---
Surgical Pathology Report Patient Name: MAURA MCLEOD Med. Rec. #: [id number] /Age/Gender: 1965 (Age: 54) / M Account: [id number] Location: ICU [facility] Taken: 05/13/2019 Received: 05/16/2019 Reported: 05/17/2019 Physicians: Naga Beck M.D. Specimen(s) Received HARDWARE REMOVED Clinical History Fusion of spine lumbar region Final Diagnosis HARDWARE, LUMBAR SPINE, REMOVAL: SURGICAL HARDWARE. MACROSCOPIC DIAGNOSIS. Electronically Signed Kathleen Holloway M.D. Gross Description Received fresh labeled "removed hardware," are 2 bar metallic bent rods measuring 6.7 and 7.0 cm in greatest dimension. Also received within the same container are 12 metallic screws ranging from 0.4-6.0 cm in greatest dimension. No soft tissue is present. No sections are submitted, gross only. 05/16/2019 [facility]05/16/2019
--- NOTE | 2019-05-17 18:26 | PN ---
Teaching Attending Note Name of Resident: Charo Delacruz ATTENDING PHYSICIAN STATEMENT I saw and evaluated the patient. I reviewed the resident's note and discussed the case with the resident. I agree with the resident's findings and plan as documented. SUBJECTIVE: Seen and examined in ICU, feeling ok, no appetite, passing flatus, no BM. OBJECTIVE: Vital Signs - 24 hr 05/16/19 05/16/19 05/17/19 21:00 23:43 06:36 Temperature 98.3 F Pulse Rate 86 95 H Respiratory 20 18 Rate Blood Pressure 170/82 104/89 O2 Sat by Pulse 100 Oximetry (%) 05/17/19 05/17/19 05/17/19 11:00 13:00 15:00 Temperature 98.2 F 98.7 F Pulse Rate 88 94 H 90 Respiratory 18 22 H 17 Rate Blood Pressure 158/87 146/92 150/90 O2 Sat by Pulse Oximetry (%) 05/17/19 05/17/19 16:00 18:47 Temperature Pulse Rate 90 86 Respiratory 18 18 Rate Blood Pressure 163/85 154/90 O2 Sat by Pulse Oximetry (%) GENERAL: NAD LUNGS: CTA bl, unlabored HEART: RRR, no w/r/r ABDOMEN: Obese, ntnd, nabs MUSCULOSKELETAL: Normal range of motion at all joints. Surgical dressing in place. LOWER EXTREMITIES: 2+ pulses, warm, well-perfused. No calf tenderness. No peripheral edema. Current Medications Acetaminophen (Tylenol -) 650 mg PO Q6H PRN PRN Reason: PAIN LEVEL 1-5 Amlodipine Besylate (Norvasc -) 5 mg PO DAILY [facility] Last Admin: 05/17/19 11:45 Dose: 5 mg Ascorbic Acid (Vitamin C -) 500 mg PO BID [facility] Last Admin: 05/17/19 11:44 Dose: 500 mg Docusate Sodium (Colace -) 100 mg PO DAILY [facility] Last Admin: 05/17/19 11:43 Dose: 100 mg Fentanyl (Sublimaze Injection -) 50 mcg IVPUSH [id number] PRN PRN Reason: PAIN-PACU ORDER X 4 DOSES ONLY Ferrous Sulfate (Feosol -) 325 mg PO BID [facility] Last Admin: 05/17/19 11:44 Dose: 325 mg Hydrochlorothiazide (Hctz -) 25 mg PO DAILY [facility] Last Admin: 05/17/19 11:43 Dose: 25 mg Morphine Sulfate (Morphine Sulfate) 2 mg IVPUSH Q4H PRN PRN Reason: PAIN LEVEL 6-10 Ondansetron HCl (Zofran Injection) 4 mg IVPUSH Q6H PRN PRN Reason: NAUSEA AND/OR VOMITING Polyethylene Glycol (Miralax (For Daily Use) -) 17 gm PO BID [facility] Last Admin: 05/17/19 11:45 Dose: 17 grams Senna (Senna -) 1 tab PO [facility] Last Admin: 05/16/19 21:14 Dose: 1 tab Laboratory Results - last 24 hr 05/17/19 05/17/19 06:00 06:00 WBC 10.6 H RBC 3.90 L Hgb 9.7 L Hct 30.2 L MCV 77.4 L MCH 25.0 L MCHC 32.3 RDW 14.4 Plt Count 243 MPV 8.9 Absolute Neuts (auto) 7.1 Neutrophils % 66.9 Lymphocytes % 17.7 Monocytes % 12.8 H Eosinophils % 2.0 D Basophils % 0.6 Nucleated RBC % 0 Sodium 135 L Potassium 4.1 Chloride 97 L Carbon Dioxide 33 H Anion Gap 5 L BUN 13.6 Creatinine 0.9 Est GFR (CKD-EPI)AfAm 111.05 Est GFR (CKD-EPI)NonAf 95.81 Random Glucose 108 H Calcium 8.6 Phosphorus 3.8 Magnesium 2.1 Total Bilirubin 0.7 AST 41 H ALT 36 Alkaline Phosphatase 91 Total Protein 5.8 L Albumin 2.5 L ASSESSMENT/PLAN: L4-S1 revision laminectomy and posterior spinal fusion POD 4 -pain control/bowel regimen -incentive spirometer -OOB, PT eval -neuro surgery fu HTN -on hctz and norvasc, monitor
[2019-05-17] MEDS: SENNOSIDES 8.6MG TABLET (FP) PO SCH (21:26)
[2019-05-18 06:32] LABS: BASO % 0.4 % (0-2.0); EOS % 2.6 % (0-4.5); HEMATOCRIT 29.4 % (35.4-49); HEMOGLOBIN 9.7 GM/dL (11.7-16.9); LYMPH % 19.4 % (8-40); MCH 25.4 pg (25.7-33.7); MCHC 32.8 g/dl (32.0-35.9); MEAN CELL VOLUME 77.4 fl (80-96); MEAN PLT VOLUME 7.9 fl (7.5-11.1); MONO % 14.7 % (3.8-10.2); NEUT % 62.9 % (42.8-82.8); PLATELET COUNT 280 K/MM3 (134-434); RDW 14.4 % (11.9-15.9); WHITE BLOOD COUNT 10.4 K/mm3 (4.0-10.0)
[2019-05-18 07:09] LABS: ALBUMIN 2.6 g/dl (3.4-5.0); BILIRUBIN,TOTAL 0.5 mg/dL (0.2-1); BLOOD UREA NITROGEN 15.3 mg/dL (7-18); CALCIUM 8.5 mg/dL (8.5-10.1); MAGNESIUM 2.4 mg/dL (1.8-2.4); PHOSPHOROUS 4.4 mg/dL (2.5-4.9); POTASSIUM 4.3 mmol/L (3.5-5.1)
--- NOTE | 2019-05-18 09:04 | PN ---
Progress Note (short form) - Note Progress Note: ORTHOPAEDIC SPINE SURGERY POD#5 No acute events per RN notes. Alert. He continues to get oob and ambulate unassisted. Voiding spontaneously. Tolerating PO diet. Denies n/v/f/c, CP, palpitations, SOB, YO or LE numbness/tingling Last Vital Signs Temp Pulse Resp BP Pulse Ox 98.3 F 76 20 123/85 100 05/18/19 06:00 05/18/19 08:00 05/18/19 08:00 05/18/19 08:00 05/17/19 21:00 CBC, BMP 05/18/19 06:05 05/18/19 06:05 GEN: A&0x3, NAD ABD: soft, non-distended, non-tender Back: lumbar dressing c/d/i. [place]tw[place] in situ. No erythema or drainage. New dressing applied. LE: GMNVI bilat. Dorsi/plantar flex/Ext 5/5 b/l. No calf tenderness or swelling noted b/l. Problem List - Problems (1) Lumbar spinal stenosis Assessment/Plan: POD #5 s/p 1. Removal of lumbar spine hardware. 2. Inspection of fusion mass. 3. Revision laminectomies L4-S1. 4. Posterior arthrodesis L2-S1. 5. Bone autograft. 6. Bone allograft. 7. Bone marrow harvest. 8. Complex wound closure (30cm) -Downgrade to floor -Continue oob/ambualte with PT -DVT ppx with oob/ambulate/SCDs -Regular diet -Stool softners/enema for constipation from narcotics -Cleared for discharge home today with f/u [facility]. Call for an appointment -Scripts sent to [facility] (Meds--> to beds) -Above plan discussed with my attending and agrees. On behalf of Dr. Naga Beck, thank you for the opportunity to participate in your patient's care. Code(s): M48.061 - SPINAL STENOSIS, LUMBAR REGION WITHOUT NEUROGENIC ESPERANZA (2) Hypertension Code(s): I10 - ESSENTIAL (PRIMARY) HYPERTENSION
[2019-05-18] MEDS ORDERED: PT OWN MED DRAWER 7, Y5N ONE (10:27)
[2019-05-18] MEDS: HYDROCHLOROTHIAZIDE 25 MG TABLET (FP) PO SCH (10:39)
[2019-05-18] MEDS: DOCUSATE SODIUM 100 MG CAPSULE (FP) PO SCH (10:39)
[2019-05-18] MEDS: ASCORBIC ACID 500 MG TABLET (FP) PO SCH (10:39)
[2019-05-18] MEDS: amLODIPine BESYLATE 5 MG TABLET (FP) PO SCH (10:44)
[2019-05-18] MEDS: POLYETHYLENE GLYCOL 3350 119 GM BTL PO SCH (10:46)
--- NOTE | 2019-05-18 11:47 | PN ---
Teaching Attending Note Name of Resident: Kati Abebe ATTENDING PHYSICIAN STATEMENT I saw and evaluated the patient. I reviewed the resident's note and discussed the case with the resident. I agree with the resident's findings and plan as documented. SUBJECTIVE: Pt seen and examined in the ICU. Drain out, had BM yesterday. Ambulated with PT. OBJECTIVE: Vital Signs Period Temp Pulse Resp BP Sys/Ling Pulse Ox Last 24 Hr 97.9 F-98.7 F 76-96 17-26 123-163/76-92 100-100 Intake & Output 05/15/19 05/16/19 05/17/19 05/18/19 23:59 23:59 23:59 23:59 Intake Total 840 400 400 Output Total 2520 2825 880 Balance -0790 -4567 -571 Weight 139.253 kg 140.115 kg 139.979 kg 140.16 kg Gen: NAD at rest Heart: RRR Lung: decreased breath sounds at the bases Abd: soft, nontender Ext: no edema CBC, BMP 05/18/19 06:05 05/18/19 06:05 Active Medications Acetaminophen (Tylenol -) 650 mg PO Q6H PRN PRN Reason: PAIN LEVEL 1-5 Last Admin: 05/18/19 02:01 Dose: 650 mg Amlodipine Besylate (Norvasc -) 5 mg PO DAILY [facility] Last Admin: 05/18/19 10:44 Dose: 5 mg Ascorbic Acid (Vitamin C -) 500 mg PO BID [facility] Last Admin: 05/18/19 10:39 Dose: 500 mg Docusate Sodium (Colace -) 100 mg PO DAILY [facility] Last Admin: 05/18/19 10:39 Dose: 100 mg Fentanyl (Sublimaze Injection -) 50 mcg IVPUSH [id number] PRN PRN Reason: PAIN-PACU ORDER X 4 DOSES ONLY Ferrous Sulfate (Feosol -) 325 mg PO BID [facility] Last Admin: 05/17/19 21:25 Dose: 325 mg Hydrochlorothiazide (Hctz -) 25 mg PO DAILY [facility] Last Admin: 05/18/19 10:39 Dose: 25 mg Ondansetron HCl (Zofran Injection) 4 mg IVPUSH Q6H PRN PRN Reason: NAUSEA AND/OR VOMITING Polyethylene Glycol (Miralax (For Daily Use) -) 17 gm PO BID [facility] Last Admin: 05/18/19 10:46 Dose: 17 grams Senna (Senna -) 1 tab PO HS [facility] Last Admin: 05/17/19 21:26 Dose: 1 tab ASSESSMENT AND PLAN: Pseudarthrosis L4-L5 with radiculopathy s/p DANDRE/Revision Laminectomies/Posterior Arthrodesis L2-S1 HTN Anemia - pain control - incentive spirometry - PO as tolerated - DVT prophylaxis - can monitor on floor or d/c home
[2019-05-18] MEDS: FERROUS SO4 325 MG TABLET (FP) PO SCH (13:31)
[2019-05-18 13:40] VITALS: BP 151/76; PULSE 86; TEMP 98.3
--- NOTE | 2019-05-18 15:29 | PN ---
Physical Exam: SUBJECTIVE: Patient seen and examined. Pt offered no complaints. passed 1 BM overnight. OBJECTIVE: Vital Signs Period Temp Pulse Resp BP Sys/Ling Pulse Ox Last 24 Hr 97.9 F-98.3 F 76-96 18-26 123-163/76-90 100-100 GENERAL: The patient is awake, alert, and fully oriented, in no acute distress. HEAD: Normal with no signs of trauma. EYES: PERRL, extraocular movements intact, sclera anicteric, conjunctiva clear. No ptosis. ENT: oropharynx clear without exudates, moist mucous membranes. NECK: Trachea midline, full range of motion, supple. LUNGS: Breath sounds equal, clear to auscultation bilaterally but decreased at the bases, no wheezes, no crackles, no accessory muscle use. HEART: Regular rate and rhythm, S1, S2 without murmur, rub or gallop. ABDOMEN: Soft, nontender, nondistended, normoactive bowel sounds, no guarding, no rebound, no hepatosplenomegaly, no masses. EXTREMITIES: 2+ pulses, warm, well-perfused, no edema. NEUROLOGICAL: Cranial nerves II through XII grossly intact. Normal speech, gait not observed. PSYCH: Normal mood, normal affect. SKIN: Warm, dry, normal turgor, no rashes or lesions noted Laboratory Results - last 24 hr 05/18/19 05/18/19 06:05 06:05 WBC 10.4 H RBC 3.80 L Hgb 9.7 L Hct 29.4 L MCV 77.4 L MCH 25.4 L MCHC 32.8 RDW 14.4 Plt Count 280 MPV 7.9 D Absolute Neuts (auto) 6.5 Neutrophils % 62.9 Lymphocytes % 19.4 Monocytes % 14.7 H Eosinophils % 2.6 Basophils % 0.4 Nucleated RBC % 0 Sodium 135 L Potassium 4.3 Chloride 98 Carbon Dioxide 32 Anion Gap 6 L BUN 15.3 Creatinine 1.0 Est GFR (CKD-EPI)AfAm 97.77 Est GFR (CKD-EPI)NonAf 84.35 Random Glucose 106 Calcium 8.5 Phosphorus 4.4 Magnesium 2.4 Total Bilirubin 0.5 AST 61 H ALT 56 Alkaline Phosphatase 109 Total Protein 6.0 L Albumin 2.6 L ASSESSMENT/PLAN: 54 M PMH of HTN, Chronic back pain, chronic knee pain, OA, L4-S1 Laminectomy (with loosening of L4 screws bilaterally), lumbar radiculopathy, morbid obesity, admitted to ICU s/p Lumbar spine surgery on 05/13. Neuro -POD #5. S/P Removal of hardware L4-S1, inspection of fusion mass, L4-S1 revision laminectomies, L2-S1 posterior instrumented spinal fusion, bone autograft, bone allograft, bone marrow harvest and complex wound closure. -Vitals stable, AAOx3 -Continue to monitor Cardio -Hx of HTN -Stable, continue monitoring Pulmonary -Stable, no active issues -using Incentive spirometry GI -Stable, No active issues -paasing gas. 1 BM overnight Renal -Stable, ocampo removed -Continue to monitor MSK -Analgesia via tylenol, received pre-op TLIP (paraspinal muscle) block w/ Exparel; Avoid NSAIDs -Per ortho, No bending, lifting (>5 lbs), or twisting for 9-12 months. -PT/OT/Rehab, OOB -WBAT b/l LE DVT: SCDs F: PO hydration E: Monitor CMP N: Regular diet Lines: Peripheral IVs Dispo: Transfer to med/surg / D/C today Visit type - Emergency Visit Emergency Visit: Yes ED Registration Date: 05/13/19 Care time: The patient presented to the Emergency Department on the above date and was hospitalized for further evaluation of their emergent condition. - New Patient This patient is new to me today: No - Critical Care Critical Care patient: Yes Total Critical Care Time (in minutes): 36 Critical Care Statement: The care of this patient involved high complexity decision making to prevent further life threatening deterioration of the patient's condition and/or to evaluate & treat vital organ system(s) failure or risk of failure. ATTENDING PHYSICIAN STATEMENT I saw and evaluated the patient. I reviewed the resident's note and discussed the case with the resident. I agree with the resident's findings and plan as documented. SUBJECTIVE: OBJECTIVE: ASSESSMENT AND PLAN:
--- NOTE | 2019-05-18 16:10 | DS ---
"Physical Examination Vital Signs: Vital Signs Temperature 98.3 F 05/18/19 13:39 Pulse Rate 86 05/18/19 13:39 Respiratory Rate 18 05/18/19 13:39 Blood Pressure 151/76 05/18/19 13:39 O2 Sat by Pulse Oximetry (%) 100 05/17/19 21:00 Findings/Remarks: seen and examined at bedside, feeling well, ambulating halls, had BM, eating well, pain well controlled Constitutional: Yes: Well Nourished, No Distress, Calm Cardiovascular: Yes: WNL, Regular Rate and Rhythm Respiratory: Yes: WNL, Regular, CTA Bilaterally Gastrointestinal: Yes: WNL, Normal Bowel Sounds, Soft, Abdomen, Obese Musculoskeletal: Yes: WNL Extremities: Yes: WNL Edema: No Wound/Incision: Yes: Clean/Dry Labs: CBC, BMP 05/18/19 06:05 05/18/19 06:05 Discharge Summary Problems reviewed: Yes Reason For Visit: FUSION OF SPINE, LUMBAR REGION Hospital Course: ASSESSMENT/PLAN: 54 M PMH of HTN, Chronic back pain, chronic knee pain, OA, L4-S1 Laminectomy ( with loosening of L4 screws bilaterally), lumbar radiculopathy, morbid obesity, admitted s/p Lumbar spine surgery on 05/13. L4-S1 revision laminectomy and posterior spinal fusion POD 5 -pain controlled/bowel regimen -incentive spirometer -OOB, PT eval -neuro surgery fu -cleared for DC by NS with close followup HTN -on hctz 25 mg at home, in hospital BP uncontrolled likely due to pain, norvasc was added. -will DC on hctz alone as BP improved with pain control and ambulation -patient well aware that he needs to followup with his doctor within 1 week for reassessment of BP control Condition: Stable - Instructions Diet, Activity, Other Instructions: Please follow up with your primary care doctor within 1 week of discharge. Post Operative Instructions Physical Activity Resume your normal everyday activity as tolerated. No heavy lifting or exercise until seen by your surgeon. You may walk unlimited amounts and climb stairs. You may resume driving the car when you feel safe and comfortable behind the wheel and you are no longer wearing your brace. Do not operate a vehicle while taking narcotic medication. Wound Care Keep your incision clean, dry and covered at all times. Apply an occlusive dressing (Saran wrap or Tegaderm) when showering to avoid getting your incision wet. Do not submerge incision or apply ointments or creams. The audrey will be removed in the office in 10-14 days post-op. Diet There are no dietary restrictions. Eat healthy, high-fiber foods. Drink 6-8 glasses of liquid each day. This will assist in keeping your bowels regular. Pain Management You may take Tylenol or acetaminophen. Any pain prescription medication ordered should be taken as prescribed for moderate to severe pain. Avoid any ibuprofen (Motrin, Advil, Aleve, Toradol, etc) for 3 months unless otherwise discussed with your surgeon. Call Dr Naga Beck for any of the following: Severe pain not relieved by medication Fever of 101 or higher Excessive bleeding or drainage on dressing Inability to urinate Any chest pain or shortness of breath, seek Emergency Care. Call the office to confirm a post-operative appointment for 2-3 weeks post-op [place] [employer] MACHINE OPERATOR: This report was requested by: Jorge Jacobson | Reference #: [id number] 05/06/2019 Tramadol hcl 50 mg tablet / 60 tablets / Naga Beck MS S MD -Cleared for discharge home today with f/u [facility] [place] office. Call for an appointment Referrals: Naga Beck MD [Staff Physician] - 1 Week Disposition: HOME - Home Medications Comprehensive Discharge Medication List: Ambulatory Orders Ferrous Sulfate [Feosol] 325 mg PO DAILY 12/04/17 Hydrochlorothiazide [Hctz -] 25 mg PO DAILY 12/04/17 Ibuprofen [Advil -] 400 mg PO PRN PRN 05/12/19 Diazepam [Valium] 2 mg PO TID PRN #24 tablet MDD 3 05/18/19 Docusate Sodium [Colace -] 100 mg PO DAILY capsule 05/18/19 Tramadol HCl 50 mg PO Q6H PRN #20 tablet MDD 4 05/18/19"
== END 2019-05-18 15:14 | disposition home or self-care (01) | DRG 304 ==
LOC: EDSTATUS 09:10 → JSAMEDAYSX 09:29 → JICU 21:44
PROVIDERS: ATTEND Internal Medicine
PROC: 0SG00AJ Fusion of Lumbar Vertebral Joint with Interbody Fusion Device, Posterior Approach, Anterior Column, Open Approach (ICD-10-PCS; 2019-05-13)
PROC: 0SG3071 Fusion of Lumbosacral Joint with Autologous Tissue Substitute, Posterior Approach, Posterior Column, Open Approach (ICD-10-PCS; 2019-05-13)
PROC: 07DR3ZZ Extraction of Iliac Bone Marrow, Percutaneous Approach (ICD-10-PCS; 2019-05-13)
PROC: B01BZZZ Fluoroscopy of Spinal Cord (ICD-10-PCS; 2019-05-13)
PROC: 4A1004G Monitoring of Central Nervous Electrical Activity, Intraoperative, Open Approach (ICD-10-PCS; 2019-05-13)
PROC: 0SG107J Fusion of 2 or more Lumbar Vertebral Joints with Autologous Tissue Substitute, Posterior Approach, Anterior Column, Open Approach (ICD-10-PCS; principal; 2019-05-13 12:00)
DX: T84.226A Displacement of internal fixation device of vertebrae, initial encounter (principal); M54.9 Dorsalgia, unspecified; M96.0 Pseudarthrosis after fusion or arthrodesis; M48.061 Spinal stenosis, lumbar region without neurogenic claudication; E66.01 Morbid (severe) obesity due to excess calories; I10 Essential (primary) hypertension; Y83.9 Surgical procedure, unspecified as the cause of abnormal reaction of the patient, or of later complication, without mention of misadventure at the time of the procedure; D64.9 Anemia, unspecified; Z68.39 Body mass index [BMI] 39.0-39.9, adult
CPT/HCPCS: 36415; 71045-TC-FY; 72100-TC-FY; 76000-TC-FY; 80048; 80053; 82728; 83540; 83550; 83735; 84100; 85025; 85027; 86850; 86891; 86900; 86901; 88300-TC; 94760; 97116-GP; 97161-GP; J0131; J1644